=== PATIENT | male | born 1955 | race African-American/Black ===

== ENCOUNTER 2017-11-03 12:27 | Emergency (ER) | payer BC ==
--- OUTSIDE RECORDS SUMMARY | 2017-11-03 12:29 | XMS REPORT | Clinical Summary ---
:1955 Author Organization [facility] Address [address] [place] [address] Care Team Providers Name Role Phone Asked, No Pcp Primary Care Provider Unavailable Allergies Not on File Current Medications Not on file Active Problems Not on file Encounters Date Type Specialty Care Team Description 10/11/2017 Lab Lab Gely Herrmann MD 09/15/2017 Lab Lab Gely Herrmann MD 08/16/2017 Lab Lab Gely Herrmann MD 08/13/2017 Lab Lab Gely Herrmann MD 06/24/2017 Telephone Transplant Eliza Mejia MA PRA Kits ordered 05/31/2017 Lab Lab Gely Herrmann MD 05/03/2017 Lab Lab Gely Herrmann MD 01/11/2017 Lab Lab Gely Herrmann MD 12/07/2016 Lab Lab Gely Herrmann MD 11/23/2016 Lab Lab Gely Herrmann MD after 11/02/2016 Social History Tobacco Use Types Packs/Day Years Used Date Never Assessed Sex Assigned at Date Recorded Not on file Last Filed Vital Signs Not on file Plan of Treatment Health Maintenance Due Date Last Done Comments COLONOSCOPY 2004 ZOSTER VACCINE 2014 INFLUENZA VACCINE 03/09/2017 Results Single antigen beads (08/16/2017 1:19 PM)Only the most recent of3 resultswithin the time period is included. Component Value Ref Range Single antigen beads See link below for PDF Lab Report Specimen Performing Laboratory [facility] DEPARTMENT OF PATHOLOGY AND GENOMIC MEDICINE [address] [place] [address] after 11/02/2016 Insurance Payer Benefit Plan / Group Subscriber ID Type Phone Address [facility] STATE xxxxxxxxxxxxxxx PPO Work: [id number] [phone] [place] [id number] Home: [place] [facility] Transplant Self 1955 Work: [id number] [phone] [place] [phone] Home:
--- NOTE | 2017-11-03 14:00 | ER ---
Nurse's Notes [facility] Name: Allen Doe Age: 62 yrs Sex: Male : 1955 Arrival Date: 11/03/2017 Time: 12:30 Bed 15 Private MD: Diagnosis: Other local infections of skin and subcutaneous tissue Presentation: 11/03 13:04 Presenting complaint: Patient states: Sudden increase in pain and swelling to left foot hb last night, reports several ant bites 1 week ago. Transition of care: patient was not received from another setting of care. Onset of symptoms was November 02, 2017. Care prior to arrival: None. 13:04 Method Of Arrival: Ambulatory hb 13:04 Acuity: AD 4 hb Historical: - Allergies: 13:06 No Known Allergies; hb - Home Meds: 13:06 clonidine HCl 0.1 mg Oral tab 1 tab 3 times per day [Active]; Coreg Oral BID [Active]; hb Norvasc 20mg Oral BID [Active]; - PMHx: 13:06 Bronchitis; Diabetes - IDDM; Dialysis; ESRD; Hypertension; hb - PSHx: 13:06 DIALYSIS GRAFT; eye; Tonsillectomy; hb - Immunization history:: Adult Immunizations up to date. - Social history:: Smoking status: Patient/guardian denies using tobacco. Screenin:39 Abuse screen: Denies threats or abuse. Denies injuries from another. Nutritional ph screening: No deficits noted. Tuberculosis screening: No symptoms or risk factors identified. Fall Risk None identified. Assessment: 13:54 General: Appears in no apparent distress. comfortable, slender, well groomed, Behavior ph is calm, cooperative, appropriate for age, Denies fever. Pain: Complains of pain in left foot. Neuro: Level of Consciousness is awake, alert, obeys commands, Oriented to person, place, time, situation. Cardiovascular: Capillary refill < 3 seconds in bilateral fingers Patient's skin is warm and dry. Pulses are palpable in right dorsalis pedis artery and left dorsalis pedis artery Edema is 1+ to left ankle and right ankle. Respiratory: Airway is patent Respiratory effort is even, unlabored, Respiratory pattern is regular, symmetrical. Derm: Skin is healthy with good turgor, Skin is normal. Musculoskeletal: Amputation of right first toe. Circulation, motion, and sensation intact. Range of motion: intact in all extremities. 14:16 Reassessment: Patient appears in no apparent distress at this time. Patient and/or ph family updated on plan of care and expected duration. Pain level reassessed. Patient is alert, oriented x 3, equal unlabored respirations, skin warm/dry/pink. Pt prescribed antibiotics and discharged home. Vital Signs: 13:07 BP 102 / 60; Pulse 61; Resp 16; Temp 98.1; Pulse Ox 98% on R/A; Weight 61.23 kg; Height hb 5 ft. 9 in. (175.26 cm); Pain 8/10; 14:16 BP 108 / 64; Pulse 58; Resp 18; Temp 97.8; Pulse Ox 99% on R/A; ph 13:07 Body Mass Index 19.94 (61.23 kg, 175.26 cm) hb ED Course: 12:30 Patient arrived in ED. sb2 13:06 Triage completed. hb 13:07 Arm band placed on left wrist. hb 13:38 Maria Luz Noble, RN is Primary Nurse. ph 13:39 Patient has correct armband on for positive identification. Bed in low position. Call ph light in reach. Pulse ox on. NIBP on. 13:42 James Pemberton PA is PHCP. jr8 13:42 Lucio Brunson MD is Attending Physician. jr8 14:17 No provider procedures requiring assistance completed. Patient did not have IV access ph during this emergency room visit. Administered Medications: No medications were administered Outcome: 14:00 Discharge ordered by . jr8 14:17 Discharged to home ambulatory. ph 14:17 Condition: good 14:17 Discharge instructions given to patient, Instructed on discharge instructions, follow up and referral plans. no driving heavy equipment, Demonstrated understanding of instructions, follow-up care, medications, Prescriptions given X 2. 14:17 Patient left the ED. ph Signatures: James Pemberton PA PA jr8 Maria Luz Noble, RN RN Ashely Davis RN RN Darshana Leblanc sb2
--- NOTE | 2017-11-03 14:01 | EDPHYS ---
Physician Documentation [facility] Name: Allen Doe Age: 62 yrs Sex: Male : 1955 Arrival Date: 11/03/2017 Time: 12:30 Bed 15 Private MD: ED Physician Lucio Brunson HPI: 11/03 13:53 This 62 yrs old Black Male presents to ER via Ambulatory with complaints of Wound jr8 Infection, LEFT FOOT. 13:53 The patient presents with pain. The complaints affect the left foot. Onset: The jr8 symptoms/episode began/occurred gradually, 2 day(s) ago. Modifying factors: The symptoms are alleviated by nothing, the symptoms are aggravated by weight bearing, movement. Associated signs and symptoms: The patient has no apparent associated signs or symptoms. Severity of symptoms: At their worst the symptoms were mild, in the emergency department the symptoms are unchanged. The patient has not experienced similar symptoms in the past. The patient has not recently seen a physician. Patient stated that he had ant bites on feet from the other day. Noticed blistering to left foot on one of his toes along with red spot on heel. Does not know what heel wound was from . Historical: - Allergies: 13:06 No Known Allergies; hb - Home Meds: 13:06 clonidine HCl 0.1 mg Oral tab 1 tab 3 times per day [Active]; Coreg Oral BID [Active]; hb Norvasc 20mg Oral BID [Active]; - PMHx: 13:06 Bronchitis; Diabetes - IDDM; Dialysis; ESRD; Hypertension; hb - PSHx: 13:06 DIALYSIS GRAFT; eye; Tonsillectomy; hb - Immunization history:: Adult Immunizations up to date. - Social history:: Smoking status: Patient/guardian denies using tobacco. ROS: 13:53 Eyes: Negative for injury, pain, redness, and discharge, ENT: Negative for injury, jr8 pain, and discharge, Neck: Negative for injury, pain, and swelling, Cardiovascular: Negative for chest pain, palpitations, and edema, Respiratory: Negative for shortness of breath, cough, wheezing, and pleuritic chest pain, Abdomen/GI: Negative for abdominal pain, nausea, vomiting, diarrhea, and constipation, Back: Negative for injury and pain, MS/Extremity: Negative for injury and deformity, Neuro: Negative for headache, weakness, numbness, tingling, and seizure. 13:53 Skin: Positive for erythema, of the left foot, blistering . Exam: 13:53 Cardiovascular: Regular rate and rhythm with a normal S1 and S2. No gallops, murmurs, jr8 or rubs. Normal PMI, no JVD. No pulse deficits. Respiratory: Lungs have equal breath sounds bilaterally, clear to auscultation and percussion. No rales, rhonchi or wheezes noted. No increased work of breathing, no retractions or nasal flaring. MS/ Extremity: Pulses equal, no cyanosis. Neurovascular intact. Full, normal range of motion. Neuro: Awake and alert, GCS 15, oriented to person, place, time, and situation. Cranial nerves II-XII grossly intact. Motor strength 5/5 in all extremities. Sensory grossly intact. Cerebellar exam normal. Normal gait. 13:53 Skin: blister noted to second toe left side. No exudate noted. 3rd toe has hemorrhagic blister noted. Heel with mild erythema. Skin cracking noted to heel which could be source of infection . Vital Signs: 13:07 BP 102 / 60; Pulse 61; Resp 16; Temp 98.1; Pulse Ox 98% on R/A; Weight 61.23 kg; Height hb 5 ft. 9 in. (175.26 cm); Pain 8/10; 14:16 BP 108 / 64; Pulse 58; Resp 18; Temp 97.8; Pulse Ox 99% on R/A; ph 13:07 Body Mass Index 19.94 (61.23 kg, 175.26 cm) hb MDM: 13:41 Patient medically screened. jr8 13:53 Data reviewed: vital signs, nurses notes, and as a result, I will discharge patient. jr8 Data interpreted: Pulse oximetry: on room air is 98 %. Interpretation: normal. Counseling: I had a detailed discussion with the patient and/or guardian regarding: the historical points, exam findings, and any diagnostic results supporting the discharge/admit diagnosis, the need for outpatient follow up, a family practitioner, to return to the emergency department if symptoms worsen or persist or if there are any questions or concerns that arise at home. Administered Medications: No medications were administered Disposition: 15:11 Co-signature as Attending Physician, Lucio Brunson MD I agree with the assessment and antonette plan of care. Disposition: 11/03/17 14:00 Discharged to Home. Impression: Other local infections of skin and subcutaneous tissue. - Condition is Stable. - Prescriptions for Clindamycin HCl 300 mg Oral Capsule - take 1 capsule by ORAL route every 6 hours for 10 days; 40 capsule. Bactrim DS 800- 160 mg Oral Tablet - take 1 tablet by ORAL route every 12 hours for 10 days; 20 tablet. - Medication Reconciliation Form, Thank You Letter, Antibiotic Education, Prescription Opioid Use form. - Follow up: Private Physician; When: 1 week; Reason: Recheck today's complaints, Continuance of care, Re-evaluation by your physician. - Problem is new. - Symptoms have improved. Signatures: Lucio Brunson MD MD cha Roszak, Josh, PA PA jr8 Maria Luz Noble, RN RN Ashely Daniel RN RN
[2017-11-03 14:22] VITALS: BP 108/64; TEMP 97.8; O2SAT 99
== END 2017-11-03 14:17 | disposition home or self-care (01) ==
LOC: ER 12:27
DX: N18.6 End stage renal disease; I12.0 Hypertensive chronic kidney disease with stage 5 chronic kidney disease or end stage renal disease; E11.22 Type 2 diabetes mellitus with diabetic chronic kidney disease; Z99.2 Dependence on renal dialysis; L08.89 Other specified local infections of the skin and subcutaneous tissue
CPT/HCPCS: 99283

== ENCOUNTER 2019-01-31 16:48 | Emergency (ER) | payer BC, OTHER ==
--- OUTSIDE RECORDS SUMMARY | 2019-01-31 16:58 | XMS REPORT | Clinical Summary ---
:1955 Author Organization [facility] Address [address] [place] [address] Care Team Providers Name Role Phone Asked, No Pcp Primary Care Provider Unavailable Allergies Active Allergy Reactions Severity Noted Date Comments Cefepime Shortness Of Breath, Other (See High 12/14/2017 hypotension Comments) Medications Medication Sig Dispensed Refills Start End Date Status Date acetaminophen 325 Take 2 capsules 0 Active mg capsule by mouth as needed. B complex with Take by mouth 0 Active C#20-folic acid 1 daily. mg capsule citalopram (CeleXA) Take 20 mg by 0 Active 20 MG tablet mouth daily. clonIDINE Take 0.1 mg by 0 Active (CATAPRES) 0.1 MG mouth as needed tablet for high blood pressure. gabapentin Take 100 mg by 0 Active (NEURONTIN) 100 mg mouth 3 (three) capsule times a day. hydrALAZINE Take 100 mg by 0 Active (APRESOLINE) 100 MG mouth 2 (two) tablet times a day. lactulose 20 Take 10 g by 0 Active gram/30 mL solution mouth as needed. lisinopril Take 20 mg by 0 Active (PRINIVIL,ZESTRIL) mouth daily. 20 mg tablet NIFEdipine CC Take 60 mg by 0 Active (ADALAT CC) 60 MG mouth daily. 24 hr tablet pantoprazole Take 40 mg by 0 Active (PROTONIX) 40 MG EC mouth daily. tablet ipratropium-albuter Take 3 mL by 0 Active ol (DUO-NEB) nebulization as 0.5-2.5 mg/mL needed for nebulizer wheezing. acetaminophen Take 1 tablet 0 02/19/20 (TYLENOL) 500 MG (500 mg total) by 8 18 tablet mouth every 4 (four) hours as needed for mild pain, headaches or fever for up to 30 days. gabapentin Take 1 capsule 90 capsule 0 02/19/20 (NEURONTIN) 100 mg (100 mg total) by 8 18 capsule mouth 3 (three) times a day for 30 days. lisinopril Take 1 tablet (20 30 tablet 0 02/19/20 (PRINIVIL,ZESTRIL) mg total) by 8 18 20 mg tablet mouth every morning for 30 days. clonIDINE HCl Take 1 tablet 90 tablet 0 02/19/20 (CATAPRES) 0.2 MG (0.2 mg total) by 8 18 tablet mouth 3 (three) times a day for 30 days. hydrALAZINE Infuse 0.5 mL (10 1 mL 0 02/19/20 (APRESOLINE) 20 mg total) into a 8 18 mg/mL injection venous catheter every 6 (six) hours as needed for high blood pressure (SBP > 180) for up to 30 days. hydrALAZINE Take 1 tablet 90 tablet 0 02/19/20 (APRESOLINE) 100 MG (100 mg total) by 8 18 tablet mouth every 8 (eight) hours for 30 days. NIFEdipine XL Take 1 tablet (60 60 tablet 0 02/19/20 (PROCARDIA XL) 60 mg total) by 8 18 MG 24 hr tablet mouth 2 (two) times a day for 30 days. ramelteon (ROZEREM) Take 1 tablet (8 0 02/19/20 8 mg tablet mg total) by 8 18 mouth nightly as needed for sleep for up to 30 days. insulin lispro Inject 0-5 Units 10 mL 12 02/19/20 (HumaLOG) 100 under the skin 3 8 18 unit/mL injection (three) times a day with meals for 30 days. ferrous sulfate 325 Take 1 tablet 60 tablet 0 02/19/20 (65 FE) MG tablet (325 mg total) by 8 18 mouth 2 (two) times a day with meals for 30 days. dextrose 10 % Infuse 40 mL/hr 500 mL 0 02/19/20 infusion into a venous 8 18 catheter continuously as needed (bedside glucose LESS than 70 mg/dL) for up to 30 days. aspirin (ECOTRIN) Take 1 tablet (81 30 tablet 0 02/19/20 81 MG enteric mg total) by 8 18 coated tablet mouth daily for 30 days. citalopram (CeleXA) Take 1 tablet (20 30 tablet 0 02/19/20 20 MG tablet mg total) by 8 18 mouth every morning for 30 days. clotrimazole Apply topically 2 0 02/19/20 (LOTRIMIN) 1 % (two) times a day 8 18 cream for 30 days. B complex-vitamin Take 1 tablet by 30 tablet 0 02/19/20 C-folic acid mouth every 8 18 (FOLBEE PLUS 5 MG) morning for 30 5 mg tablet per days. tablet ergocalciferol Take 1 capsule 4 capsule 0 02/26/20 (VITAMIN D2) 50,000 (50,000 Units 8 18 unit capsule total) by mouth once a week for 30 days. doxazosin (CARDURA) Take 1 tablet (8 30 tablet 0 02/19/20 8 MG tablet mg total) by 8 18 mouth daily for 30 days. darbepoetin Inject 1 mL (100 0 02/19/20 olga-polysorbate mcg total) under 8 18 (ARANESP, IN the skin once a POLYSORBATE,) 100 week for 30 days. mcg/mL injection carvedilol (COREG) Take 1 tablet (25 60 tablet 0 02/19/20 25 MG tablet mg total) by 8 18 mouth 2 (two) times a day for 30 days. calcium carbonate Chew 1 tablet 90 tablet 0 02/19/20 (TUMS) 200 mg (500 mg total) 3 8 18 calcium (500 mg) (three) times chewable tablet daily after meals for 30 days. acetaminophen Take 2 tablets 0 04/08/20 (TYLENOL) 325 MG (650 mg total) by 8 18 tablet mouth every 6 (six) hours as needed for fever for up to 30 days. B complex-vitamin Take 1 tablet by 30 tablet 0 04/09/20 C-folic acid mouth daily for 8 18 (FOLBEE PLUS 5 MG) 30 days. 5 mg tablet per tablet carvedilol (COREG) Take 1 tablet (25 60 tablet 0 04/08/20 25 MG tablet mg total) by 8 18 mouth 2 (two) times a day for 30 days. citalopram (CeleXA) Take 1 tablet (20 30 tablet 0 04/09/20 20 MG tablet mg total) by 8 18 mouth every morning for 30 days. clonIDINE Take 1 tablet 0 04/08/20 (CATAPRES) 0.1 MG (0.1 mg total) by 8 18 tablet mouth every 4 (four) hours as needed for high blood pressure (PRN SBP > 170) for up to 30 days. clonIDINE Take 1 tablet 90 tablet 0 03/23/20 Discontinued (CATAPRES) 0.2 MG (0.2 mg total) by 8 18 tablet mouth 3 (three) times a day for 30 days. gabapentin Take 1 capsule 90 capsule 0 04/08/20 (NEURONTIN) 100 mg (100 mg total) by 8 18 capsule mouth 3 (three) times a day for 30 days. hydrALAZINE Take 1 tablet 90 tablet 0 04/08/20 (APRESOLINE) 100 MG (100 mg total) by 8 18 tablet mouth 3 (three) times a day for 30 days. insulin lispro Inject 0-7 Units 10 mL 12 04/08/20 (HumaLOG) 100 under the skin 3 8 18 unit/mL injection (three) times a day with meals for 30 days. ipratropium-albuter Take 3 mL by 0 04/08/20 ol (DUO-NEB) nebulization 8 18 0.5-2.5 mg/mL every 6 (six) nebulizer hours as needed for wheezing for up to 30 days. lactulose 20 Take 30 mL (20 g 0 04/08/20 gram/30 mL solution total) by mouth 4 8 18 (four) times a day as needed (constipation) for up to 30 days. levothyroxine Take 1 tablet (50 30 tablet 0 04/09/20 (SYNTHROID, mcg total) by 8 18 LEVOXYL) 50 mcg mouth daily for tablet 30 days. lisinopril Take 1 tablet (20 30 tablet 0 04/09/20 (PRINIVIL,ZESTRIL) mg total) by 8 18 20 mg tablet mouth daily for 30 days. NIFEdipine XL Take 1 tablet (60 60 tablet 0 04/08/20 (PROCARDIA XL) 60 mg total) by 8 18 MG 24 hr tablet mouth 2 (two) times a day for 30 days. pantoprazole Take 1 tablet (40 30 tablet 0 04/09/20 (PROTONIX) 40 MG EC mg total) by 8 18 tablet mouth daily for 30 days. povidone-iodine Apply topically 0 04/09/20 (BETADINE) 10 % daily for 30 8 18 external solution days. sulfamethoxazole-tr Take 1 tablet by 0 03/23/20 Discontinued imethoprim (BACTRIM mouth every 12 8 18 SS) 400-80 mg per (twelve) hours tablet for 13 days. temazepam Take 1 capsule 0 04/08/20 (RESTORIL) 15 mg (15 mg total) by 8 18 capsule mouth nightly as needed for sleep for up to 30 days. sulfamethoxazole-tr Take 1 tablet by 20 tablet 0 04/02/20 imethoprim (BACTRIM mouth every 12 8 18 SS) 400-80 mg per (twelve) hours tablet for 10 days. clonIDINE HCl Take 1 tablet 90 tablet 0 04/22/20 (CATAPRES) 0.2 MG (0.2 mg total) by 8 18 tablet mouth 3 (three) times a day for 30 days. carvedilol (COREG) Take 25 mg by 0 04/18/20 Discontinued 25 MG tablet mouth 2 (two) 18 times a day with meals. levothyroxine Take 100 mcg by 0 04/18/20 Discontinued (SYNTHROID, mouth daily. 18 LEVOXYL) 100 mcg tablet carvedilol (COREG) Take 1 tablet (25 60 tablet 0 05/18/20 25 MG tablet mg total) by 8 18 mouth 2 (two) times a day with meals for 30 days. benzonatate Take 1 capsule 10 capsule 0 05/18/20 (TESSALON) 100 MG (100 mg total) by 8 18 capsule mouth 3 (three) times a day as needed for cough for up to 30 days. docusate sodium Take 1 capsule 60 capsule 0 05/18/20 (COLACE) 100 MG (100 mg total) by 8 18 capsule mouth 2 (two) times a day for 30 days. levothyroxine Take 1 tablet 30 tablet 0 05/19/20 (SYNTHROID, (112 mcg total) 8 18 LEVOXYL) 112 mcg by mouth daily tablet for 30 days. 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 LVH (left ventricular hypertrophy) due to hypertensive disease 11/14/2017 Diastolic dysfunction, left ventricle 11/14/2017 Osteomyelitis 11/12/2017 Prediabetes 11/12/2017 Severe protein-calorie malnutrition 11/12/2017 Necrotic toes 11/11/2017 ESRD (end stage renal disease) on dialysis 11/11/2017 Essential hypertension 11/11/2017 Encounters Date Type Specialty Care Team Description 04/13/2018 Anesthesia Event Orthopedic Surgery Dhara Fournier APRN 04/13/2018 Surgery Orthopedic Surgery Vance Charles BILATERAL BELOW KNEE MD Марина AMPUTATION 04/13/2018 - Hospital Encounter Orthopedic Surgery Vance Charles Preop testing (Primary Dx); 04/18/2018 MD Марина Gangrene; Leroy Espinal, ESRD (end stage renal disease) on dialysis 03/21/2018 - Emergency Cardiology Israel Ann SOB (shortness of breath) ( Primary Dx); 03/23/2018 MD Ghulam Acute angina; Leroy Espinal, Cough; ESRD (end stage renal disease); Weakness generalized; Essential hypertension 03/04/2018 Surgery Orthopedic Surgery Ranjit Mireles LEFT FOOT H., DPM TRANSMETATARSAL AMPUTATION 03/04/2018 Anesthesia Event Orthopedic Surgery Arlyn Hernandez MD 02/28/2018 - Hospital Encounter General Internal KrishdeSusanna delgado, Pleural effusion (Primary Dx); 03/09/2018 Medicine ESRD on hemodialysis; Jhony Bass, Acute respiratory distress; Dry gangrene after 01/30/2018 Immunizations Name Dates Previously Given Next Due FLUCELVAX QUAD PF (0.5mL syringe) 04/18/2018 Family History Medical History Relation Name Comments Diabetes Father Heart disease Father Hypertension Father Relation Name Status Comments Father Social History Tobacco Use Types Packs/Day Years Used Date Never Smoker Smokeless Tobacco: Never Used Alcohol Use Drinks/Week oz/Week Comments No Sex Assigned at Date Recorded Not on file Job Start Date Occupation Industry Not on file Not on file Not on file Travel History Travel Start Travel End No recent travel history available. Last Filed Vital Signs Vital Sign Reading Time Taken Blood Pressure 195/84 04/18/2018 11:02 AM CDT Pulse 84 04/18/2018 11:02 AM CDT Temperature 36.6 C (97.9 F) 04/18/2018 11:02 AM CDT Respiratory Rate 18 04/18/2018 11:02 AM CDT Oxygen Saturation 95% 04/18/2018 11:02 AM CDT Inhaled Oxygen Concentration - - Weight 63.5 kg (140 lb) 04/13/2018 10:55 AM CDT Height 175.3 cm (5' 9") 04/13/2018 10:55 AM CDT Body Mass Index 20.67 04/13/2018 10:55 AM CDT Plan of Treatment Health Maintenance Due Date Last Done Comments COLONOSCOPY SCREENING 2004 SHINGLES VACCINES (#1) 2004 INFLUENZA VACCINE 03/09/2019 04/18/2018 Implants Implanted Type Area Rubber Production Machine Operator Device Shelf Model / Identifier Expiration Serial / Date Lot Device Vasclr Clsr Baln Cath 10ml Lkng Syr 5fr Martinez Mynxgrip - [id number] Cardiovascular N/A: ACCESS CLOSURE 06/08/2019 [id number] / Implanted: 11/17/2017 (Quantity not on file) Implants N/A INC / [id number] Catheter Angio Window Cleaner Ii 5fr 0.038in 65cm Hf Contra-L - [id number] Surgical N /A: [facility] PERIPHERAL [id number] / Implanted: 11/16/2017 (Quantity not on file) Implants; N/A INTERVENTION / Expanders; VASCULAR ROBB Extenders; Surgical Wires Catheter Angio Window Cleaner Ii 5fr 0.038in 65cm Hf Contra-L - [id number] Surgical N /A: [facility] PERIPHERAL [id number] / Implanted: 11/17/2017 (Quantity not on file) Implants; N/A INTERVENTION / Expanders; VASCULAR ROBB Extenders; Surgical Wires Catheter Cxi Crossing 2.3fr Vee[employer] INC. [id number] / Implanted: Qty: 2 on 11/17/2017 by Venita Simental MD / Catheter Disaster Recovery Specialist Raymon Sl Otw 4fr 150cm 2.5x80mm Lpr [place] [id number] / Implanted: Qty: 1 on 11/17/2017 by Venita Simental MD SCIENTIFIC/DYLAN / PHERAL VASCULAR (MEDI-TECH) Catheter Disaster Recovery Specialist Otw 4fr 150cm 2o415fh [place] [id number] / Implanted: Qty: 1 on 11/17/2017 by Venita Simental MD SCIENTIFIC/DYLAN / PHERAL VASCULAR (MEDI-TECH) Catheter Sup Seekes 4fr 150cm Xng W/0.014in Gw [place] PERIPHERAL [id number] / Implanted: Qty: 1 on 11/17/2017 by Venita Simental MD VASCULAR INC / Procedures Procedure Name Priority Date/Time Associated Comments Diagnosis HC COMPLETE BLD COUNT Routine 04/17/2018 5:20 Results for this W/AUTO DIFF AM CDT procedure are in the results section. POC GLUCOSE Routine 04/16/2018 6:08 Results for this PM CDT procedure are in the results section. POC GLUCOSE Routine 04/16/2018 1:52 Results for this PM CDT procedure are in the results section. HEMODIALYSIS Routine 04/16/2018 7:27 AM CDT POC GLUCOSE Routine 04/15/2018 9:13 Results for this PM CDT procedure are in the results section. POC GLUCOSE Routine 04/15/2018 6:04 Results for this PM CDT procedure are in the results section. POC GLUCOSE Routine 04/15/2018 12:23 Results for this PM CDT procedure are in the results section. POC GLUCOSE Routine 04/15/2018 7:50 Results for this AM CDT procedure are in the results section. CBC WITH PLATELET AND Routine 04/15/2018 5:10 Results for this DIFFERENTIAL AM CDT procedure are in the results section. ZZESTIMATED GFR Routine 04/15/2018 4:00 Results for this AM CDT procedure are in the results section. BASIC METABOLIC PANEL Routine 04/15/2018 4:00 Results for this AM CDT procedure are in the results section. POC GLUCOSE Routine 04/14/2018 10:43 Results for this PM CDT procedure are in the results section. POC GLUCOSE Routine 04/14/2018 5:22 Results for this PM CDT procedure are in the results section. POC GLUCOSE Routine 04/14/2018 12:42 Results for this PM CDT procedure are in the results section. T3, FREE Routine 04/14/2018 10:30 Results for this AM CDT procedure are in the results section. T4, FREE Routine 04/14/2018 10:14 Results for this AM CDT procedure are in the results section. HEMODIALYSIS Routine 04/14/2018 8:21 AM CDT HEPATITIS B SURFACE STAT 04/14/2018 7:39 Results for this ANTIGEN AM CDT procedure are in the results section. T4, FREE Routine 04/14/2018 4:00 Results for this AM CDT procedure are in the results section. ZZESTIMATED GFR Routine 04/14/2018 4:00 Results for this AM CDT procedure are in the results section. BASIC METABOLIC PANEL Routine 04/14/2018 4:00 Results for this AM CDT procedure are in the results section. CBC WITH PLATELET AND Routine 04/14/2018 4:00 Results for this DIFFERENTIAL AM CDT procedure are in the results section. POC GLUCOSE Routine 04/13/2018 9:14 Results for this PM CDT procedure are in the results section. THYROID STIMULATING Routine 04/13/2018 6:07 Results for this HORMONE PM CDT procedure are in the results section. TRANSFUSE RED BLOOD STAT 04/13/2018 5:57 CELLS PM CDT TRANSFUSE RED BLOOD Routine 04/13/2018 5:53 CELLS PM CDT POC GLUCOSE Routine 04/13/2018 5:38 Results for this PM CDT procedure are in the results section. POC GLUCOSE Routine 04/13/2018 2:52 Results for this PM CDT procedure are in the results section. SURGICAL PATHOLOGY Routine 04/13/2018 2:41 Results for this REQUEST PM CDT procedure are in the results section. GRAM STAIN Timed 04/13/2018 1:37 Results for this PM CDT procedure are in the results section. AFB STAIN Timed 04/13/2018 1:37 Results for this PM CDT procedure are in the results section. ANAEROBIC CULTURE Timed 04/13/2018 1:37 Results for this PM CDT procedure are in the results section. FUNGUS SMEAR Timed 04/13/2018 1:37 Results for this PM CDT procedure are in the results section. AFB CULTURE Timed 04/13/2018 1:37 Gangrene (HCC) Results for this PM CDT procedure are in the results section. AEROBIC CULTURE Timed 04/13/2018 1:37 Gangrene Results for this PM CDT procedure are in the results section. FUNGUS CULTURE Timed 04/13/2018 1:37 Gangrene (HCC) Results for this PM CDT procedure are in the results section. GRAM STAIN Timed 04/13/2018 1:29 Results for this PM CDT procedure are in the results section. AFB STAIN Timed 04/13/2018 1:29 Results for this PM CDT procedure are in the results section. FUNGUS SMEAR Timed 04/13/2018 1:29 Results for this PM CDT procedure are in the results section. AFB CULTURE Timed 04/13/2018 1:29 Gangrene (HCC) Results for this PM CDT procedure are in the results section. AEROBIC CULTURE Timed 04/13/2018 1:29 Gangrene Results for this PM CDT procedure are in the results section. FUNGUS CULTURE Timed 04/13/2018 1:29 Gangrene (HCC) Results for this PM CDT procedure are in the results section. ANAEROBIC CULTURE Timed 04/13/2018 1:29 Gangrene Results for this PM CDT procedure are in the results section. IONIZED CALCIUM, Routine 04/13/2018 1:00 Results for this ARTERIAL PM CDT procedure are in the results section. GLUCOSE LEVEL, Routine 04/13/2018 1:00 Results for this SYRINGE PM CDT procedure are in the results section. POTASSIUM, SYRINGE Routine 04/13/2018 1:00 Results for this PM CDT procedure are in the results section. HEMOGLOBIN, SYRINGE Routine 04/13/2018 1:00 Results for this PM CDT procedure are in the results section. SODIUM LEVEL, SYRINGE Routine 04/13/2018 1:00 Results for this PM CDT procedure are in the results section. ARTERIAL BLOOD GAS, Routine 04/13/2018 1:00 Results for this CORRECTED PM CDT procedure are in the results section. ARTERIAL LINE Routine 04/13/2018 12:39 PM CDT Procedure Note - Simon Starr CRNA - 04/13/2018 12:39 PM CDT Arterial line Performed by: SIMON STARR Authorized by: EDY MCCONNELL Patient Location: OR Start Time: 04/13/2018 12:23 PM End Time: 04/13/2018 12:27 PM Staff: Anesthesiologist: EDY MCCONNELL Performed by: Anesthesiologist Pre-procedure: patient identified, IV checked, site and side verified, risks and benefits discussed, procedure verified, surgical consent complete, patient position confirmed, monitors and equipment checked and pre-op evaluation complete MSBT: antiseptic used, all elements of maximal sterile barrier technique followed, hand hygiene performed, cap/gown used by other personnel and solutions labeled TIme Out Performed: 04/13/2018 12:23 PM Indications: Indications: hemodynamic monitoring Anesthesia: Anesthesia: General Procedure Details: Arterial Line placement: Placed post induction Line placement site: Radial Line placement side: Left Arterial line gauge: 20 G Number of attempts: 1 Ultrasound guidance used: Yes Post-procedure: Post-procedure: Sterile dressing applied Post procedure circulation, sensation, movement: Normal and unchanged Patient tolerance: Patient tolerated the procedure well with no immediate complications SC AN ELECTIVE ENDOTRACHEAL AIRWAY Routine 04/13/2018 12:34 PM CDT Procedure Note - Simon Starr CRNA - 04/13/2018 12:34 PM CDT Airway Date/Time: 04/13/2018 12:16 PM Performed by: SIMON STARR Authorized by: EDY MCCONNELL Location: OR Urgency: Elective Difficult Airway: No Anesthesiologist: EDY MCCONNELL Performed by: anesthesiologist Preoxygenated with 100% O2: Yes Mask Ventilation: Easy mask (100mm OA) Final Airway Type: Endotracheal airway Final Endotracheal Airway: ETT Cuffed: Yes Technique Used: Direct laryngoscopy Devices/Methods Used in Placement: Intubating stylet Insertion Site: Oral Blade Type: Girard Laryngoscope Blade/Videolaryngoscope Blade Size: 2 ETT Size (mm): 8.0 Cuff at minimum occlusion pressure: Yes Measured from: Teeth ETT to Teeth (cm): 22 Placement Verified by: CO2 detection, direct visualization and equal breath sounds Laryngoscopic view: Grade IIa - partial view of glottis Rapid Sequence Induction (RSI): No Modified RSI: No Number of Attempts at Approach: 1 AMPUTATION, BELOW KNEE 04/13/2018 10:50 AM CDT Gangrene Case Notes EST 2HRS, LARGE C-ARM, AQUAMANTYS, SAW Special Needs EST 2HRS, LARGE C-ARM, AQUAMANTYS, SAW POC GLUCOSE Routine 04/13/2018 10:41 AM Results for this CDT procedure are in the results section. TYPE AND SCREEN Routine 04/13/2018 10:30 AM Results for this CDT procedure are in the results section. CBC HEMOGRAM Routine 04/13/2018 10:30 AM Results for this CDT procedure are in the results section. ZZESTIMATED GFR Routine 04/13/2018 10:30 AM Results for this CDT procedure are in the results section. COMPREHENSIVE METABOLIC Routine 04/13/2018 10:30 AM Results for this PANEL CDT procedure are in the results section. POC GLUCOSE Routine 03/23/2018 11:38 AM Results for this CDT procedure are in the results section. POC GLUCOSE Routine 03/23/2018 7:57 AM Results for this CDT procedure are in the results section. RESPIRATORY PATHOGEN Routine 03/22/2018 9:35 PM Results for this PANEL CDT procedure are in the results section. POC GLUCOSE Routine 03/22/2018 9:14 PM Results for this CDT procedure are in the results section. HEMODIALYSIS Routine 03/22/2018 5:13 PM Results for this CDT procedure are in the results section. POC GLUCOSE Routine 03/22/2018 4:21 PM Results for this CDT procedure are in the results section. ZZESTIMATED GFR Routine 03/22/2018 2:45 PM Results for this CDT procedure are in the results section. HC COMPLETE BLD COUNT Routine 03/22/2018 2:45 PM Results for this W/AUTO DIFF CDT procedure are in the results section. BASIC METABOLIC PANEL Routine 03/22/2018 2:45 PM Results for this CDT procedure are in the results section. POC GLUCOSE Routine 03/22/2018 11:53 AM Results for this CDT procedure are in the results section. POC GLUCOSE Routine 03/22/2018 7:41 AM Results for this CDT procedure are in the results section. ECG 12-LEAD STAT 03/22/2018 5:42 AM Results for this CDT procedure are in the results section. TROPONIN Timed 03/22/2018 12:15 AM Results for this CDT procedure are in the results section. CT ABDOMEN PELVIS WO STAT 03/21/2018 11:01 PM Results for this CONTRAST CDT procedure are in the results section. ECG 12-LEAD Routine 03/21/2018 10:03 PM Results for this CDT procedure are in the results section. ZZESTIMATED GFR STAT 03/21/2018 8:52 PM Results for this CDT procedure are in the results section. B NATRIURETIC PEPTIDE STAT 03/21/2018 8:52 PM Results for this CDT procedure are in the results section. TROPONIN STAT 03/21/2018 8:52 PM Results for this CDT procedure are in the results section. LIPASE LEVEL STAT 03/21/2018 8:52 PM Results for this CDT procedure are in the results section. COMPREHENSIVE METABOLIC STAT 03/21/2018 8:52 PM Results for this PANEL CDT procedure are in the results section. PARTIAL THROMBOPLASTIN STAT 03/21/2018 8:52 PM Results for this TIME (PTT) CDT procedure are in the results section. PROTHROMBIN TIME WITH STAT 03/21/2018 8:52 PM Results for this INR CDT procedure are in the results section. HC COMPLETE BLD COUNT STAT 03/21/2018 8:52 PM Results for this W/AUTO DIFF CDT procedure are in the results section. XR CHEST 2 VW STAT 03/21/2018 8:46 PM Results for this CDT procedure are in the results section. POC GLUCOSE Routine 03/21/2018 8:11 PM Results for this CDT procedure are in the results section. POC GLUCOSE Routine 03/09/2018 5:25 PM Results for this CDT procedure are in the results section. POC GLUCOSE Routine 03/09/2018 11:41 AM Results for this CDT procedure are in the results section. POC GLUCOSE Routine 03/09/2018 7:32 AM Results for this CDT procedure are in the results section. POC GLUCOSE Routine 03/08/2018 8:58 PM Results for this CDT procedure are in the results section. POC GLUCOSE Routine 03/08/2018 5:21 PM Results for this CDT procedure are in the results section. POC GLUCOSE Routine 03/08/2018 12:30 PM Results for this CDT procedure are in the results section. TRANSFUSE RED BLOOD STAT 03/08/2018 10:46 AM CELLS CDT PREPARE RBC STAT 03/08/2018 9:00 AM Results for this CDT procedure are in the results section. TYPE AND SCREEN STAT 03/08/2018 9:00 AM Results for this CDT procedure are in the results section. SMEAR REVIEW Routine 03/08/2018 7:45 AM Results for this CDT procedure are in the results section. ZZESTIMATED GFR Routine 03/08/2018 7:45 AM Results for this CDT procedure are in the results section. BASIC METABOLIC PANEL Routine 03/08/2018 7:45 AM Results for this CDT procedure are in the results section. HC COMPLETE BLD COUNT Routine 03/08/2018 7:45 AM Results for this W/AUTO DIFF CDT procedure are in the results section. POC GLUCOSE Routine 03/08/2018 7:41 AM Results for this CDT procedure are in the results section. HEMODIALYSIS Routine 03/08/2018 6:35 AM CDT POC GLUCOSE Routine 03/07/2018 8:38 PM Results for this CDT procedure are in the results section. POC GLUCOSE Routine 03/07/2018 5:39 PM Results for this CDT procedure are in the results section. POC GLUCOSE Routine 03/07/2018 12:09 PM Results for this CDT procedure are in the results section. POC GLUCOSE Routine 03/07/2018 7:56 AM Results for this CDT procedure are in the results section. POC GLUCOSE Routine 03/06/2018 5:27 PM Results for this CDT procedure are in the results section. POC GLUCOSE Routine 03/06/2018 11:04 AM Results for this CDT procedure are in the results section. POC GLUCOSE Routine 03/06/2018 7:34 AM Results for this CDT procedure are in the results section. POC GLUCOSE Routine 03/05/2018 8:54 PM Results for this CDT procedure are in the results section. POC GLUCOSE Routine 03/05/2018 5:49 PM Results for this CDT procedure are in the results section. POC GLUCOSE Routine 03/05/2018 12:37 PM Results for this CDT procedure are in the results section. POC GLUCOSE Routine 03/05/2018 8:42 AM Results for this CDT procedure are in the results section. POC GLUCOSE Routine 03/04/2018 9:15 PM Results for this CDT procedure are in the results section. POC GLUCOSE Routine 03/04/2018 3:57 PM Results for this CDT procedure are in the results section. AMPUTATION, FOOT, 03/04/2018 3:05 PM LEFT FOOT TRANSMETATARSAL CDT INFECTION Case Notes TF ~ 1130 Special Needs TF ~ 1130, EST 45 MINUTES XR FOOT 3+ VW LEFT Routine 03/04/2018 2:59 PM CDT HEMODIALYSIS Routine 03/04/2018 2:49 PM CDT POC GLUCOSE Routine 03/04/2018 1:39 PM CDT SURGICAL PATHOLOGY REQUEST Routine 03/04/2018 1:38 PM CDT AFB CULTURE Timed 03/04/2018 1:19 PM CDT FUNGUS CULTURE Timed 03/04/2018 1:19 PM CDT ANAEROBIC CULTURE Timed 03/04/2018 1:19 PM CDT AEROBIC CULTURE Timed 03/04/2018 1:19 PM CDT GRAM STAIN Timed 03/04/2018 1:08 PM CDT FUNGUS SMEAR Timed 03/04/2018 1:08 PM CDT AFB STAIN Timed 03/04/2018 1:08 PM CDT AFB CULTURE Timed 03/04/2018 1:08 PM CDT AEROBIC CULTURE Timed 03/04/2018 1:08 PM CDT FUNGUS CULTURE Timed 03/04/2018 1:08 PM CDT ANAEROBIC CULTURE Timed 03/04/2018 1:08 PM CDT POC GLUCOSE Routine 03/04/2018 11:15 AM CDT POC GLUCOSE Routine 03/04/2018 7:31 AM CDT TYPE AND SCREEN Routine 03/04/2018 4:20 AM CDT HC COMPLETE BLD COUNT W/AUTO Routine 03/04/2018 4:20 AM CDT Results for this DIFF procedure are in the results section. ZZESTIMATED GFR Routine 03/04/2018 4:00 AM CDT BASIC METABOLIC PANEL Routine 03/04/2018 4:00 AM CDT POC GLUCOSE Routine 03/03/2018 11:58 PM CDT MRI FOOT WO CONTRAST LEFT Routine 03/03/2018 9:39 PM CDT POC GLUCOSE Routine 03/03/2018 5:10 PM CDT POC GLUCOSE Routine 03/03/2018 1:13 PM CDT POC GLUCOSE Routine 03/03/2018 8:31 AM CDT HEMODIALYSIS Routine 03/03/2018 6:[address] LOWER EXTREMITY WO Routine 03/02/2018 10:00 PM CDT Results for this CONTRAST LEFT procedure are in the results section. POC GLUCOSE Routine 03/02/2018 9:18 PM CDT POC GLUCOSE Routine 03/02/2018 5:54 PM CDT XR CHEST 1 VW Routine 03/02/2018 4:27 PM CDT XR FOOT 3+ VW LEFT Routine 03/02/2018 4:27 PM CDT XR FOOT 3+ VW RIGHT Routine 03/02/2018 4:26 PM CDT US THORACENTESIS WITH Routine 03/02/2018 3:59 PM CDT Results for this IMAGING procedure are in the results section. GRAM STAIN Routine 03/02/2018 3:32 PM CDT ANAEROBIC CULTURE Routine 03/02/2018 3:32 PM CDT AEROBIC CULTURE Routine 03/02/2018 3:32 PM CDT PROTEIN, MISC FLUID Routine 03/02/2018 3:31 PM CDT CELL COUNT AND DIFFERENTIAL, Routine 03/02/2018 3:31 PM CDT Results for this BODY FLUID procedure are in the results section. LDH, MISC FLUID Routine 03/02/2018 3:31 PM CDT PROTHROMBIN TIME WITH INR STAT 03/02/2018 12:31 PM CDT PARTIAL THROMBOPLASTIN TIME STAT 03/02/2018 12:31 PM CDT Results for this (PTT) procedure are in the results section. POC GLUCOSE Routine 03/02/2018 11:47 AM CDT US DUPLEX ARTERIAL LOWER Routine 03/02/2018 11:22 AM CDT Results for this EXTREMITY BILATERAL procedure are in the results section. CYTOLOGY (NON-GYNECOLOGICAL) Routine 03/02/2018 7:54 AM CDT Results for this REQUEST procedure are in the results section. POC GLUCOSE Routine 03/02/2018 7:16 AM CDT VITAMIN B12 LEVEL Routine 03/02/2018 6:00 AM CDT HC COMPLETE BLD COUNT W/AUTO Routine 03/02/2018 6:00 AM CDT Results for this DIFF procedure are in the results section. ZZESTIMATED GFR Routine 03/02/2018 4:00 AM CDT FERRITIN LEVEL Routine 03/02/2018 4:00 AM CDT THYROID STIMULATING HORMONE Routine 03/02/2018 4:00 AM CDT LDH Routine 03/02/2018 4:00 AM CDT PHOSPHORUS LEVEL Routine 03/02/2018 4:00 AM CDT MAGNESIUM LEVEL Routine 03/02/2018 4:00 AM CDT LIPID PANEL Routine 03/02/2018 4:00 AM CDT CREATINE KINASE, TOTAL (CPK) Routine 03/02/2018 4:00 AM CDT HEPATIC FUNCTION PANEL Routine 03/02/2018 4:00 AM CDT BASIC METABOLIC PANEL Routine 03/02/2018 4:00 AM CDT POC GLUCOSE Routine 03/01/2018 9:09 PM CDT POC GLUCOSE Routine 03/01/2018 5:32 PM CDT XR CHEST 2 VW Routine 03/01/2018 5:27 PM CDT POC GLUCOSE Routine 03/01/2018 1:11 PM CDT ZZESTIMATED GFR Routine 03/01/2018 8:00 AM CDT HC COMPLETE BLD COUNT W/AUTO Routine 03/01/2018 8:00 AM CDT Results for this DIFF procedure are in the results section. BASIC METABOLIC PANEL Routine 03/01/2018 8:00 AM CDT HEPATITIS B SURFACE ANTIGEN Routine 03/01/2018 8:00 AM CDT HEMODIALYSIS Routine 03/01/2018 6:52 AM CDT POC GLUCOSE Routine 02/28/2018 10:[address] CHEST WO CONTRAST STAT 02/28/2018 7:38 PM CDT XR CHEST 1 VW PORTABLE STAT 02/28/2018 5:44 PM CDT ZZESTIMATED GFR STAT 02/28/2018 3:38 PM CDT B NATRIURETIC PEPTIDE STAT 02/28/2018 3:38 PM CDT TROPONIN STAT 02/28/2018 3:38 PM CDT COMPREHENSIVE METABOLIC STAT 02/28/2018 3:38 PM CDT Results for this PANEL procedure are in the results section. HC COMPLETE BLD COUNT W/AUTO STAT 02/28/2018 3:38 PM CDT Results for this DIFF procedure are in the results section. ECG 12-LEAD STAT 02/28/2018 3:10 PM CDT after 01/30/2018 Results CBC with platelet and differential (04/17/2018 5:20 AM CDT)Only the most recent of10 resultswithin the time period is included. WBC 6.53 4.50 - 11.00 [facility] DEPARTMENT OF k/uL PATHOLOGY AND GENOMIC MEDICINE RBC 3.36 (L) 4.40 - 6.00 [facility] DEPARTMENT OF m/uL PATHOLOGY AND GENOMIC MEDICINE HGB 8.4 (L) 14.0 - 18.0 [facility] DEPARTMENT OF g/dL PATHOLOGY AND GENOMIC MEDICINE HCT 26.6 (L) 41.0 - 51.0 % [facility] DEPARTMENT OF PATHOLOGY AND GENOMIC MEDICINE MCV 79.2 (L) 82.0 - 100.0 [facility] DEPARTMENT OF [place] PATHOLOGY AND GENOMIC MEDICINE MCH 25.0 (L) 27.0 - 34.0 [facility] DEPARTMENT OF PATHOLOGY AND GENOMIC MEDICINE MCHC 31.6 31.0 - 37.0 [facility] DEPARTMENT OF g/dL PATHOLOGY AND GENOMIC MEDICINE RDW - SD 56.1 (H) 37.0 - 55.0 [facility] DEPARTMENT OF [place] PATHOLOGY AND GENOMIC MEDICINE MPV 10.1 8.8 - 13.2 fL [facility] DEPARTMENT OF PATHOLOGY AND GENOMIC MEDICINE Platelet count 288 150 - 400 [facility] DEPARTMENT OF k/uL PATHOLOGY AND GENOMIC MEDICINE Nucleated RBC 0.00 /100 WBC [facility] DEPARTMENT OF PATHOLOGY AND GENOMIC MEDICINE Neutrophils 70.4 (H) 39.0 - 69.0 % [facility] DEPARTMENT OF PATHOLOGY AND GENOMIC MEDICINE Lymphocytes 12.7 (L) 25.0 - 45.0 % [facility] DEPARTMENT OF PATHOLOGY AND GENOMIC MEDICINE Monocytes 12.1 (H) 0.0 - 10.0 % [facility] DEPARTMENT OF PATHOLOGY AND GENOMIC MEDICINE Eosinophils 4.0 0.0 - 5.0 % [facility] DEPARTMENT OF PATHOLOGY AND GENOMIC MEDICINE Basophils 0.6 0.0 - 1.0 % [facility] DEPARTMENT OF PATHOLOGY AND GENOMIC MEDICINE Immature granulocytes 0.2Comment: 0.0 - 1.0 % [facility] DEPARTMENT OF "Immature PATHOLOGY AND granulocytes" GENOMIC MEDICINE (promyelocytes , myelocytes, metamyelocytes ) Specimen Blood Performing Organization Address City/State/Zipcode Phone Number [facility] DEPARTMENT OF PATHOLOGY AND [address] [place] [address] GENOMIC MEDICINE POC glucose (04/16/2018 6:08 PM CDT)Only the most recent of55 resultswithin the time period is included. [facility] POC glucose 137 (H) 65 - 99 mg/dL [facility] DEPARTMENT OF Comment: PATHOLOGY AND [facility] Notified RN GENOMIC MEDICINE Meter ID: [id number] Water/Wastewater Project Manager: Kayegail Barr Specimen Performing Organization Address City/[facility]/Zipcode Phone Number [facility] DEPARTMENT PATHOLOGY AND [address] [place] [id number] GENOMIC MEDICINE Estimated GFR (04/15/2018 4:00 AM CDT)Only the most recent of10 resultswithin the time period is included. [facility] GFR Non Af Amer 15 (A) mL/min/1.73 [facility] DEPARTMENT OF m2 PATHOLOGY AND GENOMIC MEDICINE GFR Af Amer 18 (A) mL/min/1.73 [facility] DEPARTMENT OF Comment: m2 PATHOLOGY AND Chronic kidney disease: <60 mL/min/1.73m2 GENOMIC MEDICINE Kidney failure: <15 mL/min/1.73m2 The estimated GFR is calculated from the IDMS-traceable Modification of Diet in Renal Disease Equation. The accuracy of the calculation is poor when the creatinine is normal. Calculated values >90 mL/min/1.73m2 are not reported. This equation has not been validated in children (<18 years), women, the elderly (>70 years), or ethnic groups other than Caucasians and Americans. Specimen Plasma specimen Performing Organization Address City/[facility]/Zipcode Phone Number [facility] DEPARTMENT OF PATHOLOGY AND [address] [place] [id number] MEDICINE Basic metabolic panel (04/15/2018 4:00 AM CDT)Only the most recent of7 resultswithin the time period is included. Pathologist [facility] Sodium 138 135 - 148 mEq/L [facility] DEPARTMENT OF PATHOLOGY AND GENOMIC MEDICINE Potassium 4.3 3.5 - 5.0 mEq/L [facility] DEPARTMENT OF PATHOLOGY AND GENOMIC MEDICINE Chloride 96 (L) 98 - 112 mEq/L [facility] DEPARTMENT OF PATHOLOGY AND GENOMIC MEDICINE CO2 30 24 - 31 mEq/L [facility] DEPARTMENT OF PATHOLOGY AND GENOMIC MEDICINE Anion gap 12@ANIO 7 - 15 mEq/L [facility] DEPARTMENT OF PATHOLOGY AND GENOMIC MEDICINE BUN 20 8 - 23 mg/dL [facility] DEPARTMENT OF PATHOLOGY AND GENOMIC MEDICINE Creatinine 4.1 (H) 0.7 - 1.2 mg/dL [facility] DEPARTMENT OF PATHOLOGY AND GENOMIC MEDICINE Glucose 117 (H) 65 - 99 mg/dL [facility] DEPARTMENT OF PATHOLOGY AND GENOMIC MEDICINE Calcium 7.8 (L) 8.8 - 10.2 mg/dL [facility] DEPARTMENT OF PATHOLOGY AND GENOMIC MEDICINE Specimen Plasma specimen Performing Organization Address City/[facility] Phone Number [facility] DEPARTMENT OF PATHOLOGY AND [address] [place] [phone] GENOMIC MEDICINE T3, free (04/14/2018 10:30 AM CDT) T3, free 1.2 (L) 2.4 - 4.2 pg/mL [facility] Comment: REFERENCE INTERVAL: Triiodothyronine, Free (Free T3) Access complete set of age- and/or gender-specific reference intervals for this test in the [facility] Test Directory ([employer]). Performed by [facility], [address] [place] [id number] [email or web address], Emil Ingram MD - Lab. Director Specimen Serum Performing Organization Address [facility] Number [facility] [address] [address] T4, free (04/14/2018 10:14 AM CDT)Only the most recent of2 resultswithin the time period is included. T4, free 1.3 0.9 - 1.7 ng/dL [facility] DEPARTMENT OF PATHOLOGY AND GENOMIC MEDICINE Specimen Plasma specimen Performing Organization Address [facility] Phone Number [facility] DEPARTMENT OF PATHOLOGY AND [address] [place] [address] Hepatitis B surface antigen (04/14/2018 7:39 AM CDT)Only the most recent of2 resultswithin the time period is included. Hepatitis B surface Non-reactive Non-reactive [facility] DEPARTMENT OF PATHOLOGY AND GENOMIC MEDICINE Specimen Blood Performing Organization Address [facility] Phone Number [facility] DEPARTMENT OF PATHOLOGY AND [address] [place] [address] Thyroid stimulating hormone (04/13/2018 6:07 PM CDT)Only the most recent of2 resultswithin the time period is included. TSH 15.01 (H) 0.27 - 4.20 uIU/mL [facility] DEPARTMENT OF PATHOLOGY AND GENOMIC MEDICINE Specimen Plasma specimen Performing Organization Address City/[facility] Phone Number [facility] DEPARTMENT OF PATHOLOGY AND [address] [place] [phone] GENOMIC MEDICINE Transfuse RBC (04/13/2018 5:57 PM CDT)Only the most recent of4 resultswithin the time period is included.Surgical pathology request (04/13/2018 2:41 PM CDT) Only the most recent of2 resultswithin the time period is included. [facility] DEPARTMENT OF PATHOLOGY AND GENOMIC MEDICINE Surgical pathology See link below [facility] DEPARTMENT OF report for PDF Lab PATHOLOGY AND Report GENOMIC MEDICINE Result status This is Final [facility] DEPARTMENT OF Report for PATHOLOGY AND [id number] GENOMIC MEDICINE Specimen Performing Organization Address [facility] Phone Number [facility] DEPARTMENT OF PATHOLOGY AND [address] [place] [address] MEDICINE Fungus smear (04/13/2018 1:37 PM CDT)Only the most recent of3 resultswithin the time period is included. Fungus smear No fungi observed. [facility] DEPARTMENT OF Comment: PATHOLOGY AND Specimen Information GENOMIC MEDICINE Specimen Source: Fluid Specimen Site: Leg, left Specimen Leg, left Performing Organization Address [facility] Phone Number [facility] DEPARTMENT OF PATHOLOGY AND [address] [place] [address] MEDICINE AFB culture (04/13/2018 1:37 PM CDT)Only the most recent of4 resultswithin the time period is included. AFB culture No growth after 6 weeks of incubation. [facility] DEPARTMENT OF isolate Comment: PATHOLOGY AND Specimen Information GENOMIC MEDICINE Specimen Source: Fluid Specimen Site: Leg, left Specimen Fluid - Leg, left Performing Organization Address City/[facility] Phone Number [facility] DEPARTMENT OF PATHOLOGY AND [address] [place] [phone] GENOMIC MEDICINE Aerobic culture (04/13/2018 1:37 PM CDT)Only the most recent of5 resultswithin the time period is included. Aerobic culture No growth after 3 days. [facility] DEPARTMENT OF isolate Comment: PATHOLOGY AND Specimen Information GENOMIC MEDICINE Specimen Source: Fluid Specimen Site: Leg, left Specimen Fluid - Leg, left Performing Organization Address City/[facility] Phone Number [facility] DEPARTMENT OF PATHOLOGY AND [address] [place] [address] GENOMIC MEDICINE Gram stain (04/13/2018 1:37 PM CDT)Only the most recent of4 resultswithin the time period is included. Gram stain isolate No WBC's or organisms seen. [facility] DEPARTMENT OF Comment: PATHOLOGY AND Specimen Information GENOMIC MEDICINE Specimen Source: Fluid Specimen Site: Leg, left Specimen Leg, left Performing Organization Address [facility] Phone Number [facility] DEPARTMENT OF PATHOLOGY AND [address] [place] [address] GENOMIC MEDICINE AFB stain (04/13/2018 1:37 PM CDT)Only the most recent of3 resultswithin the time period is included. AFB stain No acid fast bacilli (AFB) seen. [facility] DEPARTMENT OF Comment: PATHOLOGY AND GENOMIC Specimen Information MEDICINE Specimen Source: Fluid Specimen Site: Leg, left Specimen Leg, left Performing Organization [facility] Phone Number [facility] DEPARTMENT OF PATHOLOGY AND [address] [place] [address] MEDICINE Fungus culture (04/13/2018 1:37 PM CDT)Only the most recent of4 resultswithin the time period is included. Fungus culture No growth after 4 weeks of incubation. [facility] DEPARTMENT OF isolate Comment: PATHOLOGY AND Specimen Information GENOMIC MEDICINE Specimen Source: Fluid Specimen Site: Leg, left Specimen Fluid - Leg, left Performing Organization Address [facility] Phone Number [facility] DEPARTMENT OF PATHOLOGY AND [address] [place] [address] GENOMIC MEDICINE Anaerobic culture (04/13/2018 1:37 PM CDT)Only the most recent of5 resultswithin the time period is included. Anaerobic culture No anaerobic organisms isolated. [facility] DEPARTMENT OF isolate Comment: PATHOLOGY AND Specimen Information GENOMIC MEDICINE Specimen Source: Fluid Specimen Site: Leg, left Specimen Leg, left Performing Organization Address [facility] Phone Number [facility] DEPARTMENT OF PATHOLOGY AND [address] [place] [address] GENOMIC MEDICINE Sodium level, syringe (04/13/2018 1:00 PM CDT) Sodium, syringe 131 (L) 135 - 148 mEq/L [facility] DEPARTMENT OF PATHOLOGY AND GENOMIC MEDICINE Specimen Blood Performing Organization Address [facility]/Zipcode Phone Number [facility] DEPARTMENT OF PATHOLOGY AND [address] [place] [address] GENOMIC MEDICINE Potassium, syringe (04/13/2018 1:00 PM CDT) Potassium, syringe 3.0 (LL)Comment: 3.5 - 5.0 [facility] DEPARTMENT OF Abg results mEq/L PATHOLOGY AND called read back [facility] MEDICINE by Shalonda CLARK RN 13:16 nt Specimen Blood Performing Organization Address City/[facility] Phone Number [facility] DEPARTMENT OF PATHOLOGY AND [address] [place] [address] Ionized calcium, arterial (04/13/2018 1:00 PM CDT) Ionized calcium, 0.92 (L) 1.11 - 1.32 [facility] DEPARTMENT OF arterial mmol/L PATHOLOGY AND GENOMIC MEDICINE Specimen Blood Performing Organization Address [facility] Phone Number [facility] DEPARTMENT OF PATHOLOGY AND [address] [place] [address] MEDICINE Hemoglobin, syringe (04/13/2018 1:00 PM CDT) Hemoglobin, syringe 9.8 (L) 14.0 - 18.0 g/dL [facility] DEPARTMENT OF PATHOLOGY AND GENOMIC MEDICINE Specimen Blood Performing Organization Address [facility] Phone Number [facility] DEPARTMENT OF PATHOLOGY AND [address] [place] [address] Glucose level, syringe (04/13/2018 1:00 PM CDT) Glucose, syringe 83 65 - 99 mg/dL [facility] DEPARTMENT OF PATHOLOGY AND GENOMIC MEDICINE Specimen Blood Performing Organization Address [facility] Phone Number [facility] DEPARTMENT OF PATHOLOGY AND [address] [place] [address] Arterial blood gas, corrected (04/13/2018 1:00 PM CDT) pH, arterial 7.54 (H) 7.35 - 7.45 [facility] DEPARTMENT OF PATHOLOGY AND GENOMIC MEDICINE pCO2, arterial 38 35 - 45 mmHg [facility] DEPARTMENT OF PATHOLOGY AND GENOMIC MEDICINE pO2, arterial 139 (H) 80 - 90 mmHg [facility] DEPARTMENT OF PATHOLOGY AND GENOMIC MEDICINE Temperature, Celsius 37.0 Degrees C [facility] DEPARTMENT OF PATHOLOGY AND GENOMIC MEDICINE O2 saturation, 100 95 - 100 % [facility] DEPARTMENT OF arterial PATHOLOGY AND GENOMIC MEDICINE pH, arterial 7.54 [facility] DEPARTMENT OF corrected PATHOLOGY AND GENOMIC MEDICINE pCO2, arterial 38 mmHg [facility] DEPARTMENT OF corrected PATHOLOGY AND GENOMIC MEDICINE pO2, arterial 139 mmHg [facility] DEPARTMENT OF corrected PATHOLOGY AND GENOMIC MEDICINE Base excess, 9 (H) -2 - 2 mEq/L [facility] DEPARTMENT OF arterial PATHOLOGY AND GENOMIC MEDICINE Specimen Blood Performing Organization Address City/[facility] Phone Number [facility] DEPARTMENT OF PATHOLOGY AND [address] [place], [place] [phone] [facility] MEDICINE CBC hemogram (04/13/2018 10:30 AM CDT) WBC 7.05 4.50 - 11.00 k/uL [facility] DEPARTMENT OF PATHOLOGY AND GENOMIC MEDICINE RBC 4.15 (L) 4.40 - 6.00 m/uL [facility] DEPARTMENT OF PATHOLOGY AND GENOMIC MEDICINE HGB 10.2 (L) 14.0 - 18.0 g/dL [facility] DEPARTMENT OF PATHOLOGY AND GENOMIC MEDICINE HCT 31.4 (L) 41.0 - 51.0 % [facility] DEPARTMENT OF PATHOLOGY AND GENOMIC MEDICINE MCV 75.7 (L) 82.0 - 100.0 fL [facility] DEPARTMENT OF PATHOLOGY AND GENOMIC MEDICINE MCH 24.6 (L) 27.0 - 34.0 pg [facility] DEPARTMENT OF PATHOLOGY AND GENOMIC MEDICINE MCHC 32.5 31.0 - 37.0 g/dL [facility] DEPARTMENT OF PATHOLOGY AND GENOMIC MEDICINE RDW - SD 50.6 37.0 - 55.0 fL [facility] DEPARTMENT OF PATHOLOGY AND GENOMIC MEDICINE MPV 10.1 8.8 - 13.2 fL [facility] DEPARTMENT OF PATHOLOGY AND GENOMIC MEDICINE Platelet count 294 150 - 400 k/uL [facility] DEPARTMENT OF PATHOLOGY AND GENOMIC MEDICINE Specimen Performing Organization Address City/[facility] Phone Number [facility] DEPARTMENT OF PATHOLOGY AND [address] [place], [place] [phone] GENOMIC MEDICINE Type and screen (04/13/2018 10:30 AM CDT)Only the most recent of3 resultswithin the time period is included. ABO grouping O [facility] DEPARTMENT OF PATHOLOGY AND GENOMIC MEDICINE Rh type POS [facility] DEPARTMENT OF PATHOLOGY AND GENOMIC MEDICINE Antibody screen (gel) NEG [facility] DEPARTMENT OF PATHOLOGY AND GENOMIC MEDICINE Specimen Performing Organization Address City/[facility] Phone Number [facility] DEPARTMENT OF PATHOLOGY AND [address] [place], [place] [phone] GENOMIC MEDICINE Comprehensive metabolic panel (04/13/2018 10:30 AM CDT)Only the most recent of3 resultswithin the time period is included. Sodium 134 (L) 135 - 148 [facility] DEPARTMENT OF mEq/L PATHOLOGY AND GENOMIC MEDICINE Potassium 3.2 (L) 3.5 - 5.0 [facility] DEPARTMENT OF mEq/L PATHOLOGY AND GENOMIC MEDICINE Chloride 96 (L) 98 - 112 mEq/L [facility] DEPARTMENT OF PATHOLOGY AND GENOMIC MEDICINE CO2 33 (H) 24 - 31 mEq/L [facility] DEPARTMENT OF PATHOLOGY AND GENOMIC MEDICINE Anion gap 5@ANIO (L) 7 - 15 mEq/L [facility] DEPARTMENT OF PATHOLOGY AND GENOMIC MEDICINE BUN 21 8 - 23 mg/dL [facility] DEPARTMENT OF PATHOLOGY AND GENOMIC MEDICINE Creatinine 4.5 (H) 0.7 - 1.2 [facility] DEPARTMENT OF mg/dL PATHOLOGY AND GENOMIC MEDICINE Glucose 86 65 - 99 mg/dL [facility] DEPARTMENT OF PATHOLOGY AND GENOMIC MEDICINE Calcium 8.0 (L) 8.8 - 10.2 [facility] DEPARTMENT OF mg/dL PATHOLOGY AND GENOMIC MEDICINE Protein 6.0 (L) 6.3 - 8.3 g/dL [facility] DEPARTMENT OF Comment: PATHOLOGY AND [place] 4.6-7.0 g/dL GENOMIC MEDICINE 1 week 4.4-7.6 g/dL 7 months-1year5.1-7.3 g/dL 1-2 years5.6-7.5 g/dL >3 years6.0-8.0 g/dL 18-150 6.3-8.3 g/dL Albumin 2.6 (L) 3.5 - 5.0 g/dL [facility] DEPARTMENT OF PATHOLOGY AND GENOMIC MEDICINE A/G ratio 0.8 0.7 - 3.8 [facility] DEPARTMENT OF PATHOLOGY AND GENOMIC MEDICINE Alkaline phosphatase 223 (H) 40 - 129 U/L [facility] DEPARTMENT OF PATHOLOGY AND GENOMIC MEDICINE AST 16 10 - 50 U/L [facility] DEPARTMENT OF PATHOLOGY AND GENOMIC MEDICINE ALT 9 5 - 50 U/L [facility] DEPARTMENT OF PATHOLOGY AND GENOMIC MEDICINE Total bilirubin 0.2 0.0 - 1.2 [facility] DEPARTMENT OF mg/dL PATHOLOGY AND GENOMIC MEDICINE Specimen Plasma specimen Performing Organization Address City/State/Zipcode Phone Number [facility] DEPARTMENT OF PATHOLOGY AND [address] [place] [address] GENOMIC MEDICINE Respiratory pathogen panel (03/22/2018 9:35 PM CDT) Pathologist [facility] Respiratory Negative for all pathogens tested: [facility] DEPARTMENT OF pathogen panel Negative for Adenovirus PATHOLOGY AND Negative for Coronavirus HKU1 GENOMIC MEDICINE Negative for Coronavirus NL63 Negative for Coronavirus 229E Negative for Coronavirus OC43 Negative for Human Metapneumovirus Negative for Rhinovirus/Enterovirus Negative for Influenza A Negative for Influenza A/H1 Negative for Influenza A/H3 Negative for Influenza A/H1-2009 Negative for Influenza B Negative for Parainfluenza Virus 1 Negative for Parainfluenza Virus 2 Negative for Parainfluenza Virus 3 Negative for Parainfluenza Virus 4 Negative for Respiratory Syncytial Virus Negative for Bordetella pertussis Negative for Chlamydophila pneumoniae Negative for Mycoplasma pneumoniae This real-time PCR assay detects the presence of nucleic acids (RNA or DNA) for the respiratory pathogens listed. A result of "Not-detected" does not exclude the possibility of the presence of one or more pathogens at concentrations less than the detectable limits of the assay. Comment: Specimen Information Specimen Source: Nares Specimen Site: Other Specimen Nares - Other- Detailed Description Required Performing Organization Address City/State/Zipcode Phone Number [facility] DEPARTMENT OF PATHOLOGY AND [address] [place] [address] GENOMIC MEDICINE Hemodialysis (03/22/2018 5:13 PM CDT) Narrative Performed At Amaury Hayden Jr., MD 03/22/20185:14 PM Roula York MD PhD Андрей Treviño, MD Amaury Nagy Sr, MD Joi Link Jr, ACNPRachel Rucker, AGACNPCarol Thornton, AGACNPJudy Wilson, ACNP Hemodialysis Procedure Note Indication: ESRD Revaclear 300 x 4 hours UF as tolerated Na 140 K 3 HCO3 35 Ca 2.5 Qb 350 cc/min Anticoagulation: saline flushes only Amaury Hayden M.D. [facility] [phone] ECG 12 lead (03/22/2018 5:42 AM CDT)Only the most recent of3 resultswithin the time period is included. Pathologist [facility] Ventricular rate 67 [facility] Atrial rate 67 [facility] SC interval 142 [facility] QRSD interval 76 [facility] QT interval 462 [facility] QTC interval 488 [facility] P axis 1 50 [facility] QRS axis 1 -3 [facility] MUSE T wave axis 8 [facility] MUSE EKG impression Normal sinus rhythm-Low [facility] MUSE voltage QRS-Prolonged QT-Abnormal ECG-In automated comparison with ECG of 21-MAR-2018 22:03,-No significant change was found- Specimen Performing Organization Address City/[facility]/Zipcode Phone Number [facility] MUSE [address] [place] [address] Troponin (03/22/2018 12:15 AM CDT)Only the most recent of3 resultswithin the time period is included. Troponin <0.30 0.00 - 0.30 [facility] DEPARTMENT OF Comment: ng/mL PATHOLOGY AND 0.30 - 1.49 ng/mlMay indicate increased risk of acute GENOMIC MEDICINE coronary syndrome. >=1.5 ng/mlConsistent with acute myocardial infarction. The diagnostic value of a single normal or non-diagnostic result is questionable.Serial samples at 2-6 hour intervals are required to rule out acute myocardial injury. Specimen Plasma specimen Performing Organization Address City/[facility]/Zipcode Phone Number [facility] DEPARTMENT OF PATHOLOGY AND [address] [place] [id number] Abdomen Pelvis Wo Contrast (03/21/2018 11:01 PM CDT) Specimen Narrative Performed At CT ABDOMEN PELVIS WO CONTRAST [facility] CLINICAL INDICATION:Abd painunspecified, Nauseavomiting TECHNIQUE: Multidetector CT of the abdomen and pelvis was performed without intravenous administration of iodinated contrast with multiplanar reformats. CT scans are performed using radiation dose reduction techniques (iterative reconstruction and/or automated exposure control). Technical factors are evaluated and adjusted to ensure appropriate moderation of exposure. Automated dose management technology is applied to adjust radiation exposure while achieving a diagnostic quality image. COMPARISON:CT chest/abdomen/pelvis 12/29/2017. FINDINGS: Lower chest: Small bilateral effusions with bibasilar atelectasis. Small pericardial effusion. Liver:Normal. Gallbladder and biliary:Normal. Pancreas:Normal. Spleen:Normal. Gastrointestinal:Large and small bowel are normal in caliber. Relatively large amount of stool in the colon. Appendix is not visualized. No focal inflammatory changes within the right lower quadrant of the abdomen. Adrenals:Normal. Kidneys and ureters:No mass or hydronephrosis. Urinary bladder:Normal. Lymph nodes:No enlarged lymph nodes in the abdomen or pelvis. Peritoneum: Small ascites. Vascular:Limited evaluation given lack of intravenous contrast. Extensive vascular calcification. Reproductive organs:The prostate is enlarged. Abdominal wall: Anasarca. Bones:No acute bony abnormality. IMPRESSION: Examination is limited by lack of intravenous contrast and minimal fat within the abdominal viscera. Within this limitation: Small bilateral effusions and a small pericardial effusion, increased from the prior study. Generalized anasarca. Small amount of free fluid in the abdomen. Moderate amount of stool in the colon. [facility]-[id number] Procedure Note Interface, Radiology Results Incoming - 03/21/2018 11:[address] ABDOMEN PELVIS WO CONTRAST CLINICAL INDICATION: Abd pain unspecified, Nausea vomiting TECHNIQUE: Multidetector CT of the abdomen and pelvis was performed without intravenous administration of iodinated contrast with multiplanar reformats. CT scans are performed using radiation dose reduction techniques (iterative reconstruction and/or automated exposure control). Technical factors are evaluated and adjusted to ensure appropriate moderation of exposure. Automated dose management technology is applied to adjust radiation exposure while achieving a diagnostic quality image. COMPARISON: CT chest/abdomen/pelvis 12/29/2017. FINDINGS: Lower chest: Small bilateral effusions with bibasilar atelectasis. Small pericardial effusion. Liver: Normal. Gallbladder and biliary: Normal. Pancreas: Normal. Spleen: Normal. Gastrointestinal: Large and small bowel are normal in caliber. Relatively large amount of stool in the colon. Appendix is not visualized. No focal inflammatory changes within the right lower quadrant of the abdomen. Adrenals: Normal. Kidneys and ureters: No mass or hydronephrosis. Urinary bladder: Normal. Lymph nodes: No enlarged lymph nodes in the abdomen or pelvis. Peritoneum: Small ascites. Vascular: Limited evaluation given lack of intravenous contrast. Extensive vascular calcification. Reproductive organs: The prostate is enlarged. Abdominal wall: Anasarca. Bones: No acute bony abnormality. IMPRESSION: Examination is limited by lack of intravenous contrast and minimal fat within the abdominal viscera. Within this limitation: Small bilateral effusions and a small pericardial effusion, increased from the prior study. Generalized anasarca. Small amount of free fluid in the abdomen. Moderate amount of stool in the colon. [facility]-[id number] Performing Organization Address City/State/Zipcode Phone Number [facility] [address] [place] [phone] Partial thromboplastin time, activated (03/21/2018 8:52 PM CDT)Only the most recent of2 resultswithin the time period is included. PTT 39.2 (H) 23.0 - 36.0 [facility] DEPARTMENT OF Comment: sec PATHOLOGY AND PTT therapeutic range for unfractionated heparin is GENOMIC MEDICINE 61.0-112.0 seconds which corresponds to Anti-Xa 0.3-0.7 U/ml. Specimen Blood Performing Organization Address City/[facility]ode Phone Number [facility] DEPARTMENT OF PATHOLOGY AND [address] [place] [phone] [facility] Prothrombin time with INR (03/21/2018 8:52 PM CDT)Only the most recent of2 resultswithin the time period is included. Prothrombin time 15.8 (H) 12.0 - 15.0 [facility] DEPARTMENT OF sec PATHOLOGY AND GENOMIC MEDICINE INR 1.2 [facility] DEPARTMENT OF Comment: PATHOLOGY AND The International Normalized Ratio (INR) is a therapeutic GENOMIC MEDICINE monitoring tool for patients who are stable on oral anticoagulant therapy. An INR of 2.0-3.0 is suggested for deep vein thrombosis/pulmonary embolism. Specimen Blood Performing Organization Address [facility] Centercode Phone Number [facility] DEPARTMENT OF PATHOLOGY AND [address] [place] [phone] [facility] B natriuretic peptide (03/21/2018 8:52 PM CDT)Only the most recent of2 resultswithin the time period is included. BNP 940 (H) 0 - 100 pg/mL [facility] DEPARTMENT OF PATHOLOGY AND GENOMIC MEDICINE Specimen Blood Performing Organization Address City/[facility]/Zipcode Phone Number [facility] DEPARTMENT OF PATHOLOGY AND [address] [place] [address] GENOMIC MEDICINE Lipase level (03/21/2018 8:52 PM CDT) Lipase 18 13 - 60 U/L [facility] DEPARTMENT OF PATHOLOGY AND GENOMIC MEDICINE Specimen Plasma specimen Performing Organization Address City/[facility]/Zipcode Phone Number [facility] DEPARTMENT OF PATHOLOGY AND [address] [place] [id number] [facility] MEDICINE XR Chest 2 Vw (03/21/2018 8:46 PM CDT)Only the most recent of2 resultswithin the time period is included. Specimen Narrative Performed At EXAMINATION:XR CHEST 2 VW [facility] CLINICAL HISTORY:Coughnew onset, Shortness of breath COMPARISON:March 02, 2018 IMPRESSION: Moderate bilateral pleural effusions, increased from prior. There is cardiomegaly and pulmonary vascular congestion. [facility]-[id number] Procedure Note Hm Interface, Radiology Results Incoming - 03/21/2018 10:12 PM CDT EXAMINATION: XR CHEST 2 VW CLINICAL HISTORY: Cough new onset, Shortness of breath COMPARISON: March 02, 2018 IMPRESSION: Moderate bilateral pleural effusions, increased from prior. There is cardiomegaly and pulmonary vascular congestion. [facility]-[id number] Performing Organization Address City/[facility] Centercode Phone Number [facility] [address] [place], [place] [phone] Prepare RBC, 2 Units (03/08/2018 9:00 AM CDT) Product name Red Cells AS1 [facility] DEPARTMENT OF Leukored Irrad PATHOLOGY AND GENOMIC MEDICINE Unit number [id number] [facility] DEPARTMENT OF PATHOLOGY AND GENOMIC MEDICINE Product code [id number] [facility] DEPARTMENT OF PATHOLOGY AND GENOMIC MEDICINE Dispense status Transfused [facility] DEPARTMENT OF PATHOLOGY AND GENOMIC MEDICINE Blood expiration [id number] [facility] DEPARTMENT OF date PATHOLOGY AND GENOMIC MEDICINE Blood type code 5100 [facility] DEPARTMENT OF PATHOLOGY AND GENOMIC MEDICINE Blood type O POSITIVE [facility] DEPARTMENT OF PATHOLOGY AND GENOMIC MEDICINE Product name Red Cells AS1 [facility] DEPARTMENT OF Leukored Irrad PATHOLOGY AND GENOMIC MEDICINE Unit number [id number] [facility] DEPARTMENT OF PATHOLOGY AND GENOMIC MEDICINE Product code [id number] [facility] DEPARTMENT OF PATHOLOGY AND GENOMIC MEDICINE Dispense status Transfused [facility] DEPARTMENT OF PATHOLOGY AND GENOMIC MEDICINE Blood expiration [id number] [facility] DEPARTMENT OF date PATHOLOGY AND GENOMIC MEDICINE Blood type code 5100 [facility] DEPARTMENT OF PATHOLOGY AND GENOMIC MEDICINE Blood type O POSITIVE [facility] DEPARTMENT OF PATHOLOGY AND GENOMIC MEDICINE Specimen Performing Organization Address City/[facility]/Zipcode Phone Number [facility] DEPARTMENT OF PATHOLOGY AND [address] [place] [phone] GENOMIC MEDICINE Smear review (03/08/2018 7:45 AM CDT) Platelet slide review Teresa adequate [facility] DEPARTMENT OF PATHOLOGY AND GENOMIC MEDICINE Anisocytosis Moderate [facility] DEPARTMENT OF PATHOLOGY AND GENOMIC MEDICINE Tear drop cells Occasional [facility] DEPARTMENT OF PATHOLOGY AND GENOMIC MEDICINE Schistocytes Moderate (A) [facility] DEPARTMENT OF PATHOLOGY AND GENOMIC MEDICINE Ovalocytes Moderate [facility] DEPARTMENT OF PATHOLOGY AND GENOMIC MEDICINE Specimen Performing Organization Address City/[facility]/Zipcode Phone Number [facility] DEPARTMENT OF PATHOLOGY AND [address] [place] [address] GENOMIC MEDICINE XR Foot 3+ Vw Left (03/04/2018 2:59 PM CDT)Only the most recent of2 resultswithin the time period is included. Specimen Narrative Performed At EXAMINATION:XR FOOT 3VW LEFT [facility] CLINICAL HISTORY:status-post amputation COMPARISON:None. IMPRESSION: Extensive vascular calcifications are present. 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 No bone destruction is identified. [facility]-[id number] Procedure Note Hm Interface, Radiology Results Incoming - 03/04/2018 3:09 PM CDT EXAMINATION: XR FOOT 3 VW LEFT CLINICAL HISTORY: status-post amputation COMPARISON: None. IMPRESSION: Extensive vascular calcifications are present. 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 No bone destruction is identified. [facility]-[id number] Performing Organization Address [facility] Centercode Phone Number [facility] [address] [place] [address] MRI Foot Wo Contrast Left (03/03/2018 9:39 PM CDT) Specimen Narrative Performed At MRI FOOT WO CONTRAST LEFT [facility] CLINICAL INDICATION:Osteomyelitis suspectedfoot swellingdiabetic TECHNIQUE:Multisequence multiplanar MR imaging of the left foot was performed without gadolinium contrast. COMPARISON:01/01/2018 FINDINGS: BONES:As on prior exam, there are technical difficulties imaging the toes. The distal and middle phalanges are very poorly visualized and assessment is nondiagnostic. There is however better visualization of the proximal phalanges which again demonstrate prominent increased T2 signal through the second, third toe now with edema in the fifth proximal phalanges as well as the base of the fourth. There is now increasing low T1 signal in the second and third proximal phalanges suggestive of developing osteomyelitis. Edema of the second and third metatarsal heads is also noted with minimal edema in the first fifth metatarsal head. The more proximal metatarsals and visualized hindfoot are normal in signal intensity. JOINT:No joint effusion. SOFT TISSUES:As on prior exam, there is extensive loss of soft tissue from the distal foot with marked loss of tissue about the toes. Gas along the first digit and in the interspace on prior recent CT are not as well visualized on the MRI. No drainable collection is identified. OTHER:If it management would change, consider tagged white cell scan for most specific evaluation for involvement of osteomyelitis in the foot. IMPRESSION: Limited MR with findings for osteomyelitis particularly involving the second and third toes but early osteomyelitis of the other digits not excluded. Edema is noted in the metatarsal heads as well. Please see report. Thank you for allowing us to participate in the care of your patient [facility]-[id number] Procedure Note Hm Interface, Radiology Results Incoming - 03/10/2018 2:59 PM CDT MRI FOOT WO CONTRAST LEFT CLINICAL INDICATION: Osteomyelitis suspected foot swelling diabetic TECHNIQUE: Multisequence multiplanar MR imaging of the left foot was performed without gadolinium contrast. COMPARISON: 01/01/2018 FINDINGS: BONES: As on prior exam, there are technical difficulties imaging the toes. The distal and middle phalanges are very poorly visualized and assessment is nondiagnostic. There is however better visualization of the proximal phalanges which again demonstrate prominent increased T2 signal through the second, third toe now with edema in the fifth proximal phalanges as well as the base of the fourth. There is now increasing low T1 signal in the second and third proximal phalanges suggestive of developing osteomyelitis. Edema of the second and third metatarsal heads is also noted with minimal edema in the first fifth metatarsal head. The more proximal metatarsals and visualized hindfoot are normal in signal intensity. JOINT: No joint effusion. SOFT TISSUES: As on prior exam, there is extensive loss of soft tissue from the distal foot with marked loss of tissue about the toes. Gas along the first digit and in the interspace on prior recent CT are not as well visualized on the MRI. No drainable collection is identified. OTHER: If it management would change, consider tagged white cell scan for most specific evaluation for involvement of osteomyelitis in the foot. IMPRESSION: Limited MR with findings for osteomyelitis particularly involving the second and third toes but early osteomyelitis of the other digits not excluded. Edema is noted in the metatarsal heads as well. Please see report. Thank you for allowing us to participate in the care of your patient [facility]-[id number] Performing Organization Address City/State/Zipcode Phone Number [facility] [phone] Lower Extremity Wo Contrast Left (03/02/2018 10:00 PM CDT) Specimen Narrative Performed At EXAMINATION:CT LOWER EXTREMITY WO CONTRAST LEFT [facility] CLINICAL HISTORY:Osteomyelitis suspectedfoot swellingdiabetic, rule out gas in foot TECHNIQUE: Multiple axial images of the right lower extremity were obtained without contrast. CT imaging was performed with iterative reconstruction technique and/or automated exposure control to reduce radiation dose. COMPARISON:X-rays dated 03/02/2018 IMPRESSION: 1.Soft tissue gas associated with the distal great toe. Minimal gas is noted distally iliopsoas with the phalanges of the second through the fourth lesser toes. 2.No bony destruction, periostitis or osteolysis. MRI may be helpful to assess for osteomyelitis not visible by CT scan. 3.No fluid collections. 4.Diffuse subcutaneous swelling that can be seen with edema or cellulitis. 5.Extensive vascular calcifications. Diffuse osteopenia. [facility]-[id number] Procedure Note Interface, Radiology Results Incoming - 03/02/2018 10:19 PM CDT EXAMINATION: CT LOWER EXTREMITY WO CONTRAST LEFT CLINICAL HISTORY: Osteomyelitis suspected foot swelling diabetic, rule out gas in foot TECHNIQUE: Multiple axial images of the right lower extremity were obtained without contrast. CT imaging was performed with iterative reconstruction technique and/or automated exposure control to reduce radiation dose. COMPARISON: X-rays dated 03/02/2018 IMPRESSION: 1. Soft tissue gas associated with the distal great toe. Minimal gas is noted distally iliopsoas with the phalanges of the second through the fourth lesser toes. 2. No bony destruction, periostitis or osteolysis. MRI may be helpful to assess for osteomyelitis not visible by CT scan. 3. No fluid collections. 4. Diffuse subcutaneous swelling that can be seen with edema or cellulitis. 5. Extensive vascular calcifications. Diffuse osteopenia. [facility]-[id number] Performing Organization Address City/State/Zipcode Phone Number [facility] [address] [place] [address] XR Chest 1 Vw (03/02/2018 4:27 PM CDT) Specimen Narrative Performed At [facility]ST 1 VW INDICATION: Post Thoracentesis COMPARISON: Chest PA and lateral dated 03/01/2018. IMPRESSION: Small right pleural effusion, decreasing. Marked solid opacities medial right lung base increasing, likely increasing subsegmental atelectasis. Small left pleural effusion significantly decreasing. Minimal solid of opacity medial aspect left lower lung decreasing, likely decreasing subsegmental atelectasis. Otherwise unchanged without evidence of pneumothorax. Metallic dental hardware. Minimal cardiomegaly. Minimal left gross aortic arch. Minimal tortuosity descending thoracic aorta. Minimal degenerative changes thoracic spine. [facility]-[id number] Procedure Note Interface, Radiology Results Incoming - 03/02/2018 4:42 PM CDT EXAM: XR CHEST 1 VW INDICATION: Post Thoracentesis COMPARISON: Chest PA and lateral dated 03/01/2018. IMPRESSION: Small right pleural effusion, decreasing. Marked solid opacities medial right lung base increasing, likely increasing subsegmental atelectasis. Small left pleural effusion significantly decreasing. Minimal solid of opacity medial aspect left lower lung decreasing, likely decreasing subsegmental atelectasis. Otherwise unchanged without evidence of pneumothorax. Metallic dental hardware. Minimal cardiomegaly. Minimal left gross aortic arch. Minimal tortuosity descending thoracic aorta. Minimal degenerative changes thoracic spine. [facility]-[id number] Performing Organization Address City/State/Zipcode Phone Number [facility] [address] [place] [address] XR Foot 3+ Vw Right (03/02/2018 4:26 PM CDT) Specimen Narrative Performed At EXAMINATION:XR FOOT 3VW [facility] CLINICAL HISTORY:Osteomyelitis suspectedfoot swellingdiabetic TECHNIQUE: 3 views of the right foot obtained. COMPARISON:12/04/2017 IMPRESSION: Forefoot amputation through the metatarsal shafts. The skin jorje and drains have been removed in interval. Soft tissue swelling of the stomach most pronounced over the first metatarsal, with subtle periosteal reaction at the distal end of the remnant first metatarsal, may indicate osteomyelitis. Remaining visualized bones appear well-maintained. Extensive atherosclerotic calcification. Pes planus. Mild to moderate degenerative changes throughout the midfoot. [facility]-[id number] Procedure Note Interface, Radiology Results Incoming - 03/02/2018 4:48 PM CDT EXAMINATION: XR FOOT 3 VW RIGHT CLINICAL HISTORY: Osteomyelitis suspected foot swelling diabetic TECHNIQUE: 3 views of the right foot obtained. COMPARISON: 12/04/2017 IMPRESSION: Forefoot amputation through the metatarsal shafts. The skin jorje and drains have been removed in interval. Soft tissue swelling of the stomach most pronounced over the first metatarsal, with subtle periosteal reaction at the distal end of the remnant first metatarsal, may indicate osteomyelitis. Remaining visualized bones appear well-maintained. Extensive atherosclerotic calcification. Pes planus. Mild to moderate degenerative changes throughout the midfoot. [facility]-[id number] Performing Organization Address City/State/Zipcode Phone Number [facility] [address] [place] [address] US Thoracentesis With Imaging (03/02/2018 3:59 PM CDT) Specimen Narrative Performed At EXAMINATION:US THORACENTESIS WITH IMAGING [facility] CLINICAL HISTORY:left pleural effusionesrd COMPARISON:None. TECHNIQUE: The procedure's risks, benefits, and alternatives were discussed with the patient and written, informed consent was obtained. Using ultrasound guidance, the left pleural effusion was localized and the overlying posterior chest was prepped and draped in the usual sterile fashion. 1% buffered lidocaine was used for local anesthesia. All elements of maximal sterile barrier technique were followed. A 5 [place] Yueh catheter was inserted into the pleural space and 7 50 cc of pleural fluid was removed. Post procedure images reveal a small residual effusion. The patient tolerated the procedure without difficulty and was discharged to the radiology recovery area for postprocedure chest x-ray prior to discharge. EBL: None. COMPLICATIONS: None. SPECIMENS: As above. IMPRESSION: Successful ultrasound-guided left thoracentesis with removal of 750 mL of pleural fluid. [facility]-[id number] Procedure Note Interface, Radiology Results Incoming - 03/02/2018 4:06 PM CDT EXAMINATION: US THORACENTESIS WITH IMAGING CLINICAL HISTORY: left pleural effusion esrd COMPARISON:None. TECHNIQUE: The procedure's risks, benefits, and alternatives were discussed with the patient and written, informed consent was obtained. Using ultrasound guidance, the left pleural effusion was localized and the overlying posterior chest was prepped and draped in the usual sterile fashion. 1 % buffered lidocaine was used for local anesthesia. All elements of maximal sterile barrier technique were followed. A 5 [place] Yueh catheter was inserted into the pleural space and 7 50 cc of pleural fluid was removed. Post procedure images reveal a small residual effusion. The patient tolerated the procedure without difficulty and was discharged to the radiology recovery area for postprocedure chest x-ray prior to discharge. EBL: None. COMPLICATIONS: None. SPECIMENS: As above. IMPRESSION: Successful ultrasound-guided left thoracentesis with removal of 750 mL of pleural fluid. [facility]-[id number] Performing Organization Address City/[facility]/Zipcode Phone Number [facility] [address] [place] [phone] Cell count and differential, body fluid (03/02/2018 3:31 PM CDT) [facility] fluid type Pleural [facility] DEPARTMENT OF PATHOLOGY AND GENOMIC MEDICINE Color, fluid Colorless [facility] DEPARTMENT OF PATHOLOGY AND GENOMIC MEDICINE Appearance, fluid Clear [facility] DEPARTMENT OF PATHOLOGY AND GENOMIC MEDICINE RBC, fluid SEE /CMM [facility] DEPARTMENT OF COMMENTComment: 1+ PATHOLOGY AND (0 - 500 RBC/CMM) GENOMIC MEDICINE Nucleated cells, 167 /CMM [facility] DEPARTMENT OF fluid PATHOLOGY AND GENOMIC MEDICINE Fluid mononuclear See Diff [facility] DEPARTMENT OF cell PATHOLOGY AND GENOMIC MEDICINE Neutrophils, fluid 11 % [facility] DEPARTMENT OF PATHOLOGY AND GENOMIC MEDICINE Lymphocytes, fluid 5 % [facility] DEPARTMENT OF PATHOLOGY AND GENOMIC MEDICINE Mesothelial cells, 1 % [facility] DEPARTMENT OF fluid PATHOLOGY AND GENOMIC MEDICINE Macrophages, fluid 83 % [facility] DEPARTMENT OF PATHOLOGY AND GENOMIC MEDICINE Specimen Fluid Performing Organization Address [facility] Phone Number [facility] DEPARTMENT OF PATHOLOGY AND [address] [place] [phone] GENOMIC MEDICINE Protein, misc fluid (03/02/2018 3:31 PM CDT) Fluid type Pleural [facility] DEPARTMENT OF PATHOLOGY AND GENOMIC MEDICINE Protein, fluid 1.7 g/dL [facility] DEPARTMENT OF Comment: PATHOLOGY AND Analysis performed on Harman 8000 analyzer. This is not an GENOMIC MEDICINE approved methodology for this specimen type;accuracy and clinical significance uncertain. Specimen Fluid Performing Organization Address City/[facility] Phone Number [facility] DEPARTMENT OF PATHOLOGY AND [address] [place] [address] GENOMIC MEDICINE LDH, misc fluid (03/02/2018 3:31 PM CDT) Fluid type Pleural [facility] DEPARTMENT OF PATHOLOGY AND GENOMIC MEDICINE LDH, fluid 64 U/L [facility] DEPARTMENT OF Comment: PATHOLOGY AND Analysis performed on Harman 8000 analyzer. This is not an GENOMIC MEDICINE approved methodology for this specimen type;accuracy and clinical significance uncertain. Specimen Fluid Performing Organization Address City/[facility]/Zipcode Phone Number [facility] DEPARTMENT OF PATHOLOGY AND [address] [place] [phone] GENOMIC MEDICINE Pv duplex arterial lower extremity (03/02/2018 11:22 AM CDT) Specimen Narrative Performed At [facility] Vascular Ultrasound Laboratory Lower Extremity Arterial Duplex Report [id number] [place] [address] Pat.Name:ANTHONY STOVER GPat.ID:[id number] .Date: 03/02/2018 Refer.MD:JHONY BASS MD Exam Time: 9:14:00 AMStudy Type:LE Arterial Height:68inDOBAge: 1955,62Y Sex: MALESonogrphr: Roger Roque, RDMS, RVT Pat. Stat.:Inpatient Room:[address] TapeVol: , CPT - 4: 45101, 86356 Echo Event ID:[id number] Order ID:[id number] Reason for Study:Peripheral arterial disease. 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 Angioplasty on 11/17/17. Right foot amputation transmetatarsal 12/03/17. Procedures:B-flow imaging, Colorflow, Grayscale/2D, Pulsed wave Doppler Race:B SUMMARY: DUPLEX SCAN OBSERVATIONS: RIGHT:Extensive, concentric, diffusely calcified arteries noted throughout the lower extremity. Focally elevated velocities (via Doppler and colorflow) noted within the right proximal femoral artery, distal femoral artery, proximal posterior tibial, distal posterior tibial artery. Absent flow noted within the anterior tibial artery with reconstitution of the dorsalis pedis artery via collaterals. LEFT:Extensive, concentric, diffusely calcified arteries noted throughout the lower extremity. Focally elevated velocities (via Doppler and colorflow) noted within the left proximal femoral artery, mid femoral, proximal popliteal, distal popliteal, mid posterior tibial, proximal peroneal, mid peroneal, distal peroneal, and distal anterior tibial arteries. ANKLE/BRACHIAL INDEX: RIGHTLEFT Brachial Artery Pressure AVF/Graft 124 mmHg DPNon-compressible 150 mmHg PTNon-compressible 162 mmHg TIM DPNon-compressible 1.21 TIM PTNon-compressible 1.31 TOE/BRACHIAL INDEX: Great ToeAmputation0 mmHg TBI0.000.00 PRELIMINARY FINDINGS: 1.50-75% stenosis (2.82) noted within the right proximal femoral artery. 2.50-75% stenosis (2.61) within right distal femoral artery. 3.50-75% stenosis (2.39) noted in right proximal posterior tibial artery. 4.< 75% stenosis (3.95) within the right distal posterior tibial artery. 5.Total occlusion of the anterior tibial artery with reconstitution of dorsalis pedis artery via collaterals. 6.Less than 50% stenosis noted within left proximal and mid femoral artery. 7.Less than 50% stenosis (1.87) proximal left popliteal artery. 8.50-75% stenosis (3.42) noted within the left mid posterior tibial artery. 9.Multiple areas of 50-75% stenosis within the peroneal artery: prox (3.6), mid (2.1), and distal (2.9) segments. 10. 50-75% stenosis (3.08) noted within the left distal anterior tibial artery. PHYSICIAN INTERPRETATION: 1.Bilateral lower extremity arterial exam demonstrates extensive diffuse irregular calcified plaque with segmental stenosis occlusive disease. There is occlusion of the right anterior tibial artery. MEASUREMENTS: DOPPLER Right FLOAT TENDER prox FLOAT TENDER prox PSV83.9 cm/s Profunda Profunda PSV96 cm/s SFA Dist SFA Dist PSV83 cm/s SFA Mid SFA Mid PSV 88 cm/s Right SFA Prox SFA Prox PSV 175 cm/s Right FLOAT TENDER Mid FLOAT TENDER Mid PSV 84 cm/s Left FLOAT TENDER Mid FLOAT TENDER Mid BOR186 cm/s Right FLOAT TENDER Dist FLOAT TENDER Dist PSV62 cm/s Left Profunda Profunda PSV92 cm/s Left SFA Prox SFA Prox PSV89 cm/s Left SFA Prox 1 SFA Prox 1 PSV 130 cm/s Left SFA Mid SFA Mid PSV 83 cm/s Left SFA Mid 1 SFA Mid 1 SFG479 cm/s Left SFA Dist SFA Dist PSV94 cm/s Right SFA Dist 1 SFA Dist 1 PSV 217 cm/s Right SFA Dist 2 SFA Dist 2 PSV59 cm/s Right Pop Prox Pop Prox PSV72 cm/s Left Pop Prox Pop Prox PSV 110 cm/s Left Pop Prox 1 Pop Prox 1 PSV 206 cm/s Right Pop Dist Pop Dist PSV85 cm/s Left Pop Dist Pop Dist PSV94 cm/s Left Pop Dist 1 Pop Dist 1 PSV 144 cm/s Left Pop Dist 2 Pop Dist 2 PSV60 cm/s Right TP Trunk Prox TP Trunk Prox P95 cm/s Left TP Trunk Prox TP Trunk Prox P82 cm/s Right TP Trunk Dist TP Trunk Dist P54 cm/s Left TP Trunk Dist TP Trunk Dist P 133 cm/s Right IT SECURITY ADMINISTRATOR Prox IT SECURITY ADMINISTRATOR Prox PSV 129 cm/s Left IT SECURITY ADMINISTRATOR Prox IT SECURITY ADMINISTRATOR Prox PSV 125 cm/s Right IT SECURITY ADMINISTRATOR Mid IT SECURITY ADMINISTRATOR Mid PSV 87 cm/s Left IT SECURITY ADMINISTRATOR Mid IT SECURITY ADMINISTRATOR Mid PSV 64 cm/s Left IT SECURITY ADMINISTRATOR Mid 1 IT SECURITY ADMINISTRATOR Mid 1 WUI771 cm/s Left IT SECURITY ADMINISTRATOR Mid 2 IT SECURITY ADMINISTRATOR Mid 2 HMJ128 cm/s Right IT SECURITY ADMINISTRATOR Distal IT SECURITY ADMINISTRATOR Distal PSV87 cm/s Right IT SECURITY ADMINISTRATOR Dist 1 IT SECURITY ADMINISTRATOR Dist 1 PSV 344 cm/s Left Peroneal Prox Peroneal Prox P52 cm/s Right IT SECURITY ADMINISTRATOR Dist 2 IT SECURITY ADMINISTRATOR Dist 2 PSV30 cm/s Right Peroneal Prox 1 Peroneal Prox 196 cm/s Left Peroneal Prox 1 Peroneal Prox 1 190 cm/s Left Peroneal Prox 2 Peroneal Prox 279 cm/s Right Peroneal Mid Peroneal Mid PS56 cm/s Left Peroneal Mid Peroneal Mid PS39 cm/s Left Peroneal Mid 1 Peroneal Mid 1 81 cm/s Left Peroneal Mid 2 Peroneal Mid 2 99 cm/s Right Peroneal Dist Peroneal Dist P 106 cm/s Left Peroneal Dist Peroneal Dist P55 cm/s Left Peroneal Dist 1 Peroneal Dist 1 159 cm/s Right TRE Prox TRE Prox PSV25 cm/s Left TRE Prox TRE Prox PSV95 cm/s Right TRE Prox 1 TRE Prox 1 PSV41 cm/s Right TRE Prox 2 TRE Prox 2 PSV 0 cm/s Right TRE Mid TRE Mid PSV-21 cm/s Left TRE Mid TRE Mid PSV 55 cm/s Right TRE Mid 2 TRE Mid 2 PSV0 cm/s Right TRE Distal TRE Distal PSV 0 cm/s Left TRE Distal TRE Distal PSV16 cm/s Left TRE Dist 1 TRE Dist 1 PSV36 cm/s Left TRE Dist 2 TRE Dist 2 PSV 111 cm/s Right DPA DPA PSV 39 cm/s Left DPA DPA PSV 23 cm/s Signed 03/02/2018 01:31 PM Adryan Ochoa MD Procedure Note Interface, Radiology Results In - 03/02/2018 1:32 PM CDT Vascular Ultrasound Laboratory Lower Extremity Arterial Duplex Report [id number] [place] [address] Pat.Name: ANTHONY STOVER Pat.ID: [id number] .Date: 03/02/2018 Refer.MD: JHONY BASS MD Exam Time: 9:14:00 AM Study Type:LE Arterial Height: 68in Age: 1 1955,62Y Sex: MALE Sonogrphr: Roger Roque RDMS, RVT Pat. Stat.:Inpatient Room: [address] Vol: , CPT - 4: 31245, [address] Echo Event ID:[id number] Order ID: [id number] Reason for Study:Peripheral arterial disease. 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 Angioplasty on 11/17/17. Right foot amputation transmetatarsal 12/03/17. Procedures:B-flow imaging, Colorflow, Grayscale/2D, Pulsed wave Doppler Race: B SUMMARY: DUPLEX SCAN OBSERVATIONS: RIGHT: Extensive, concentric, diffusely calcified arteries noted throughout the lower extremity. Focally elevated velocities (via Doppler and colorflow) noted within the right proximal femoral artery, distal femoral artery, proximal posterior tibial, distal posterior tibial artery. Absent flow noted within the anterior tibial artery with reconstitution of the dorsalis pedis artery via collaterals. LEFT: Extensive, concentric, diffusely calcified arteries noted throughout the lower extremity. Focally elevated velocities (via Doppler and colorflow) noted within the left proximal femoral artery, mid femoral, proximal popliteal, distal popliteal, mid posterior tibial, proximal peroneal, mid peroneal, distal peroneal, and distal anterior tibial arteries. ANKLE/BRACHIAL INDEX: RIGHT LEFT Brachial Artery Pressure AVF/Graft 124 mmHg DP Non-compressible 150 mmHg PT Non-compressible 162 mmHg TIM DP Non-compressible 1.21 TIM PT Non-compressible 1.31 TOE/BRACHIAL INDEX: Great Toe Amputation 0 mmHg TBI 0.00 0.00 PRELIMINARY FINDINGS: 1. 50-75% stenosis (2.82) noted within the right proximal femoral artery. 2. 50-75% stenosis (2.61) within right distal femoral artery. 3. 50-75% stenosis (2.39) noted in right proximal posterior tibial artery. 4. < 75% stenosis (3.95) within the right distal posterior tibial artery. 5. Total occlusion of the anterior tibial artery with reconstitution of dorsalis pedis artery via collaterals. 6. Less than 50% stenosis noted within left proximal and mid femoral artery. 7. Less than 50% stenosis (1.87) proximal left popliteal artery. 8. 50-75% stenosis (3.42) noted within the left mid posterior tibial artery. 9. Multiple areas of 50-75% stenosis within the peroneal artery: prox (3.6), mid (2.1), and distal (2.9) segments. 10. 50-75% stenosis (3.08) noted within the left distal anterior tibial artery. PHYSICIAN INTERPRETATION: 1. Bilateral lower extremity arterial exam demonstrates extensive diffuse irregular calcified plaque with segmental stenosis occlusive disease. There is occlusion of the right anterior tibial artery. MEASUREMENTS: DOPPLER Right FLOAT TENDER prox FLOAT TENDER prox PSV 83.9 cm/s Profunda Profunda PSV 96 cm/s SFA Dist SFA Dist PSV 83 cm/s SFA Mid SFA Mid PSV 88 cm/s Right SFA Prox SFA Prox PSV 175 cm/s Right FLOAT TENDER Mid FLOAT TENDER Mid PSV 84 cm/s Left FLOAT TENDER Mid FLOAT TENDER Mid PSV 110 cm/s Right FLOAT TENDER Dist FLOAT TENDER Dist PSV 62 cm/s Left Profunda Profunda PSV 92 cm/s Left SFA Prox SFA Prox PSV 89 cm/s Left SFA Prox 1 SFA Prox 1 PSV 130 cm/s Left SFA Mid SFA Mid PSV 83 cm/s Left SFA Mid 1 SFA Mid 1 PSV 123 cm/s Left SFA Dist SFA Dist PSV 94 cm/s Right SFA Dist 1 SFA Dist 1 PSV 217 cm/s Right SFA Dist 2 SFA Dist 2 PSV 59 cm/s Right Pop Prox Pop Prox PSV 72 cm/s Left Pop Prox Pop Prox PSV 110 cm/s Left Pop Prox 1 Pop Prox 1 PSV 206 cm/s Right Pop Dist Pop Dist PSV 85 cm/s Left Pop Dist Pop Dist PSV 94 cm/s Left Pop Dist 1 Pop Dist 1 PSV 144 cm/s Left Pop Dist 2 Pop Dist 2 PSV 60 cm/s Right TP Trunk Prox TP Trunk Prox P 95 cm/s Left TP Trunk Prox TP Trunk Prox P 82 cm/s Right TP Trunk Dist TP Trunk Dist P 54 cm/s Left TP Trunk Dist TP Trunk Dist P 133 cm/s Right IT SECURITY ADMINISTRATOR Prox IT SECURITY ADMINISTRATOR Prox PSV 129 cm/s Left IT SECURITY ADMINISTRATOR Prox IT SECURITY ADMINISTRATOR Prox PSV 125 cm/s Right IT SECURITY ADMINISTRATOR Mid IT SECURITY ADMINISTRATOR Mid PSV 87 cm/s Left IT SECURITY ADMINISTRATOR Mid IT SECURITY ADMINISTRATOR Mid PSV 64 cm/s Left IT SECURITY ADMINISTRATOR Mid 1 IT SECURITY ADMINISTRATOR Mid 1 PSV 107 cm/s Left IT SECURITY ADMINISTRATOR Mid 2 IT SECURITY ADMINISTRATOR Mid 2 PSV 219 cm/s Right IT SECURITY ADMINISTRATOR Distal IT SECURITY ADMINISTRATOR Distal PSV 87 cm/s Right IT SECURITY ADMINISTRATOR Dist 1 IT SECURITY ADMINISTRATOR Dist 1 PSV 344 cm/s Left Peroneal Prox Peroneal Prox P 52 cm/s Right IT SECURITY ADMINISTRATOR Dist 2 IT SECURITY ADMINISTRATOR Dist 2 PSV 30 cm/s Right Peroneal Prox 1 Peroneal Prox 1 96 cm/s Left Peroneal Prox 1 Peroneal Prox 1 190 cm/s Left Peroneal Prox 2 Peroneal Prox 2 79 cm/s Right Peroneal Mid Peroneal Mid PS 56 cm/s Left Peroneal Mid Peroneal Mid PS 39 cm/s Left Peroneal Mid 1 Peroneal Mid 1 81 cm/s Left Peroneal Mid 2 Peroneal Mid 2 99 cm/s Right Peroneal Dist Peroneal Dist P 106 cm/s Left Peroneal Dist Peroneal Dist P 55 cm/s Left Peroneal Dist 1 Peroneal Dist 1 159 cm/s Right TRE Prox TRE Prox PSV 25 cm/s Left TRE Prox TRE Prox PSV 95 cm/s Right TRE Prox 1 TRE Prox 1 PSV 41 cm/s Right TRE Prox 2 TRE Prox 2 PSV 0 cm/s Right TRE Mid TRE Mid PSV -21 cm/s Left TRE Mid TRE Mid PSV 55 cm/s Right TRE Mid 2 TRE Mid 2 PSV 0 cm/s Right TRE Distal TRE Distal PSV 0 cm/s Left TRE Distal TRE Distal PSV 16 cm/s Left TRE Dist 1 TRE Dist 1 PSV 36 cm/s Left TRE Dist 2 TRE Dist 2 PSV 111 cm/s Right DPA DPA PSV 39 cm/s Left DPA DPA PSV 23 cm/s Signed 03/02/2018 01:31 PM Adryan Ochoa MD Performing Organization Address City/State/Zipcode Phone Number [facility] [address] [place] [address] Cytology (non-gynecological) request (03/02/2018 7:54 AM CDT) [facility] DEPARTMENT OF PATHOLOGY AND GENOMIC MEDICINE Cytology See link below [facility] DEPARTMENT OF (non-gynecological) for PDF Lab PATHOLOGY AND report Report GENOMIC MEDICINE Result status This is Final [facility] DEPARTMENT OF Report to PATHOLOGY AND [id number] GENOMIC MEDICINE Specimen Performing Organization Address City/[facility]/Zipcode Phone Number [facility] DEPARTMENT OF PATHOLOGY AND [address] [place] [address] GENOMIC MEDICINE Vitamin B12 level (03/02/2018 6:00 AM CDT) Vitamin B12 1,113 (E) 013 - 420 [facility] DEPARTMENT OF Comment: pg/mL PATHOLOGY AND Significant overlap exists between normal and deficiency states. GENOMIC MEDICINE However, most patients with deficiencies will have Serum B12 <200 pg/mL. Specimen Serum Performing Organization Address City/[facility]/Zipcode Phone Number [facility] DEPARTMENT OF PATHOLOGY AND [address] [place] [address] GENOMIC MEDICINE Phosphorus level (03/02/2018 4:00 AM CDT) Phosphorus 2.7 2.4 - 4.5 mg/dL [facility] DEPARTMENT OF PATHOLOGY AND GENOMIC MEDICINE Specimen Plasma specimen Performing Organization Address [facility] Phone Number [facility] DEPARTMENT OF PATHOLOGY AND [address] [place] [phone] GENOMIC MEDICINE Magnesium level (03/02/2018 4:00 AM CDT) Magnesium 1.9 1.6 - 2.4 mg/dL [facility] DEPARTMENT OF PATHOLOGY AND GENOMIC MEDICINE Specimen Plasma specimen Performing Organization Address [facility] Phone Number [facility] DEPARTMENT OF PATHOLOGY AND [address] [place] [address] GENOMIC MEDICINE LDH (03/02/2018 4:00 AM CDT) LDH 145 87 - 225 U/L [facility] DEPARTMENT OF PATHOLOGY AND GENOMIC MEDICINE Specimen Plasma specimen Performing Organization Address [facility] Phone Number [facility] DEPARTMENT OF PATHOLOGY AND [address] [place] [address] MEDICINE Ferritin level (03/02/2018 4:00 AM CDT) Ferritin level 856 (H) 30 - 400 ng/mL [facility] DEPARTMENT OF PATHOLOGY AND GENOMIC MEDICINE Specimen Plasma specimen Performing Organization Address [facility] Phone Number [facility] DEPARTMENT OF PATHOLOGY AND [address] [place] [address] MEDICINE Creatine kinase, total (CPK) (03/02/2018 4:00 AM CDT) Creatine kinase 44 39 - 308 U/L [facility] DEPARTMENT OF PATHOLOGY AND GENOMIC MEDICINE Specimen Plasma specimen Performing Organization Address [facility] Phone Number [facility] DEPARTMENT OF PATHOLOGY AND [address] [place] [address] GENOMIC MEDICINE Hepatic function panel (03/02/2018 4:00 AM CDT) Albumin 1.7 (L) 3.5 - 5.0 g/dL [facility] DEPARTMENT OF PATHOLOGY AND GENOMIC MEDICINE Total bilirubin <0.2 0.0 - 1.2 [facility] DEPARTMENT OF mg/dL PATHOLOGY AND GENOMIC MEDICINE Bilirubin direct <0.2 0.0 - 0.3 [facility] DEPARTMENT OF mg/dL PATHOLOGY AND GENOMIC MEDICINE Alkaline phosphatase 146 (H) 40 - 129 U/L [facility] DEPARTMENT OF PATHOLOGY AND GENOMIC MEDICINE Protein 6.2 (L) 6.3 - 8.3 g/dL [facility] DEPARTMENT OF Comment: PATHOLOGY AND [place] 4.6-7.0 g/dL GENOMIC MEDICINE 1 week 4.4-7.6 g/dL 7 months-1year5.1-7.3 g/dL 1-2 years5.6-7.5 g/dL >3 years6.0-8.0 g/dL 18-150 6.3-8.3 g/dL ALT 7 5 - 50 U/L [facility] DEPARTMENT OF PATHOLOGY AND GENOMIC MEDICINE AST 18 10 - 50 U/L [facility] DEPARTMENT OF PATHOLOGY AND GENOMIC MEDICINE Specimen Plasma specimen Performing Organization Address City/State/Zipcode Phone Number [facility] DEPARTMENT OF PATHOLOGY AND [address] [place] [address] GENOMIC MEDICINE Lipid panel (03/02/2018 4:00 AM CDT) Cholesterol 151 <200 mg/dL [facility] DEPARTMENT OF PATHOLOGY AND GENOMIC MEDICINE Triglycerides 69 <150 mg/dL [facility] DEPARTMENT OF PATHOLOGY AND GENOMIC MEDICINE HDL cholesterol 31 (L) >40 mg/dL [facility] DEPARTMENT OF PATHOLOGY AND GENOMIC MEDICINE LDL cholesterol 100 (H)Comment: <100 mg/dL [facility] DEPARTMENT Result obtained by OF PATHOLOGY AND direct LDL GENOMIC MEDICINE measurement Lipid panel SeeBelow [facility] DEPARTMENT interpretation Comment: OF PATHOLOGY AND Total Cholesterol (mg/dL) GENOMIC MEDICINE <200 Desirable [id number]-turj >=240High Triglycerides (mg/dL) <150 Normal 128-975Hvozmveqzi-jqeq 200-499High >=500Very high HDL Cholesterol (mg/dL) <40Low (male) <40Low (female) LDL Cholesterol (mg/dL) <100 Optimal 100-129Near or above optimal 464-397Jlpzojrjpl-xedj 160-189High >=190Very high Risk Catergories that modify LDL goals. Risk CatergoriesLDL goal (mg/dL) CHD and CHD risk equivalent<100 (10-year risk >20%) Multiple (2+) risk factors <130 (10-year risk=<20%) 0-1 risk factors <160 (<10-year risk) Defining levels of lipids in metabolic syndrome Triglycerides>=150 mg/dL HDL Cholesterol Men<40 mg/dL Women<40 mg/dL Non-HDL cholesterol is a second target for therapy in persons with high triglycerides (>=200 mg/dL) Specimen Plasma specimen Performing Organization Address City/State/Zipcode Phone Number [facility] DEPARTMENT OF PATHOLOGY AND [address] [place] [address] [facility] CT Chest Wo Contrast (02/28/2018 7:38 PM CDT) Specimen Narrative Performed At CT CHEST WO CONTRAST [facility] CLINICAL INDICATION: Pleural effusion TECHNIQUE:Multidetector CT imaging of the chest was performed without intravenous contrast with multiplanar reconstructions. CT scans are performed using radiation dose reduction techniques (iterative reconstruction and/or automated exposure control). Technical factors are evaluated and adjusted to ensure appropriate moderation of exposure. Automated dose management technology is applied to adjust radiation exposure while achieving a diagnostic quality image. COMPARISON:CT 12/29/2017. Chest radiograph 02/28/2018. FINDINGS: Lungs and large airways: Bilateral compressive atelectasis. Left lower lobe appears completely collapsed. Majority of right lower lobe is collapsed. Pleura: Moderate bilateral pleural effusions. Heart and pericardium:Heart size is enlarged. Trace pericardial effusion. Vessels:Moderate calcific atherosclerosis of the thoracic aorta. Grossly no aortic aneurysm. Main pulmonary artery measures 3.4 cm in diameter. Coronary atherosclerosis. Evaluation of vessel lumens is limited due to lack of IV contrast. Mediastinum and mane: Generalized edema throughout the soft tissues including mediastinum. Lymph nodes:Limited evaluation due to diffuse edema and lack of IV contrast. No pathological adenopathy in the mane, axilla or mediastinum. Chest wall: Diffuse subcutaneous soft tissue edema. Bones:Mild degenerative changes. There is some sclerosis within left 10th posterior rib, possibly related to healing fracture. Upper abdomen:No focal abnormality detected with limited evaluation. IMPRESSION: Anasarca. Moderate bilateral pleural effusions and associated compressive atelectasis. [facility]-[id number] Procedure Note Interface, Radiology Results Incoming - 02/28/2018 8:[address] CHEST WO CONTRAST CLINICAL INDICATION: Pleural effusion TECHNIQUE: Multidetector CT imaging of the chest was performed without intravenous contrast with multiplanar reconstructions. CT scans are performed using radiation dose reduction techniques (iterative reconstruction and/or automated exposure control). Technical factors are evaluated and adjusted to ensure appropriate moderation of exposure. Automated dose management technology is applied to adjust radiation exposure while achieving a diagnostic quality image. COMPARISON: CT 12/29/2017. Chest radiograph 02/28/2018. FINDINGS: Lungs and large airways: Bilateral compressive atelectasis. Left lower lobe appears completely collapsed. Majority of right lower lobe is collapsed. Pleura: Moderate bilateral pleural effusions. Heart and pericardium: Heart size is enlarged. Trace pericardial effusion. Vessels: Moderate calcific atherosclerosis of the thoracic aorta. Grossly no aortic aneurysm. Main pulmonary artery measures 3.4 cm in diameter. Coronary atherosclerosis. Evaluation of vessel lumens is limited due to lack of IV contrast. Mediastinum and mane: Generalized edema throughout the soft tissues including mediastinum. Lymph nodes: Limited evaluation due to diffuse edema and lack of IV contrast. No pathological adenopathy in the mane, axilla or mediastinum. Chest wall: Diffuse subcutaneous soft tissue edema. Bones: Mild degenerative changes. There is some sclerosis within left 10th posterior rib, possibly related to healing fracture. Upper abdomen: No focal abnormality detected with limited evaluation. IMPRESSION: Anasarca. Moderate bilateral pleural effusions and associated compressive atelectasis. [facility]-[id number] Performing Organization Address [facility] Phone Number [employer] [address] [place] [address] XR Chest 1 Vw Portable (02/28/2018 5:44 PM CDT) Specimen Narrative Performed At EXAMINATION:XR CHEST 1 VW PORTABLE [facility] CLINICAL HISTORY:ICU ptrecent tube or catheter insert COMPARISON:December 28, 2017 IMPRESSION: 1.There are moderate bilateral basal pleural effusions greater on the left with associated volume loss, increasing since the prior exam.. 2.Heart size is at the upper limits normal. 3.There is mild vascular congestion. [id number] Procedure Note [facility], Radiology Results Incoming - 02/28/2018 5:51 PM CDT EXAMINATION: XR CHEST 1 VW PORTABLE CLINICAL HISTORY: ICU pt recent tube or catheter insert COMPARISON: December 28, 2017 IMPRESSION: 1. There are moderate bilateral basal pleural effusions greater on the left with associated volume loss, increasing since the prior exam.. 2. Heart size is at the upper limits normal. 3. There is mild vascular congestion. [facility]-[id number] Performing Organization Address [facility] Phone Number [employer] [address] [place] [address] after 01/30/2018 Insurance Payer Benefit Plan / Subscriber ID Effective Dates Phone Address Type Group BCBS BCBS CHOICE xxxxxxxxxxxxxxx 2016-Present PPO PPO/FEDERAL EMPL PPO MEDICARE MEDICARE PART A xxxxxxxxxxx 2016-Present [place], [place] Medicare AND B [phone] [id number] (Work) Advance Directives Patient has advance care planning documents, and code status on file. For more information, please contact:Anderson Jones[address] [place] [address] Code Status Date Activated Date Inactivated Comments Full Code 02/28/2018 8:53 PM 03/09/2018 11:28 PM Code Status decision reached by: Patient
[2019-01-31 17:40] LABS: Absolute Lymphocytes (CBC) 0.7 K/uL (0.7-4.9); Basophils % 2.2 % (0-1.3); Eosinophils % 6.1 % (0-4.4); Hematocrit 27.8 % (39.6-49.0); Lymphocytes % 13.7 % (15.3-44.8); MPV 7.8 fL (7.6-11.3); Monocytes % 12.3 % (3.3-12.3); RBC Red Blood Cell Count 3.41 M/uL (4.33-5.43)
[2019-01-31 17:48] LABS: Potassium 3.9 mmol/L (3.5-5.1)
--- NOTE | 2019-01-31 18:20 | ER ---
Nurse's Notes [facility] Name: Allen Doe Age: 63 yrs Sex: Male : 1955 Arrival Date: 01/31/2019 Time: 16:52 Bed 15 Private MD: Diagnosis: Anemia in chronic kidney disease Presentation: 01/31 17:01 Presenting complaint: Patient states: He was sent by Dr. Love to have a blood aj1 transfusion. Transition of care: patient was not received from another setting of care. Onset of symptoms was January 31, 2019. Risk Assessment: Do you want to hurt yourself or someone else? Patient reports no desire to harm self or others. Initial Sepsis Screen: Does the patient meet any 2 criteria? No. Patient's initial sepsis screen is negative. Does the patient have a suspected source of infection? No. Patient's initial sepsis screen is negative. Care prior to arrival: None. 17:01 Method Of Arrival: Ambulatory aj1 17:01 Acuity: AD 3 aj1 Triage Assessment: 17:03 General: Appears in no apparent distress. comfortable, Behavior is calm, cooperative, aj1 appropriate for age. Pain: Denies pain. Neuro: Level of Consciousness is awake, alert, obeys commands. Cardiovascular: Patient's skin is warm and dry. Respiratory: Airway is patent Respiratory effort is even, unlabored, Respiratory pattern is regular, symmetrical. Historical: - Allergies: 17:03 cefepime; aj1 - Home Meds: 17:03 clonidine HCl 0.1 mg Oral tab 1 tab 3 times per day [Active]; Coreg Oral BID [Active]; aj1 - PMHx: 17:03 Bronchitis; Diabetes - IDDM; Dialysis; ESRD; Hypertension; aj1 - Immunization history:: Flu vaccine is up to date. - Social history:: Smoking status: Patient/guardian denies using tobacco, Patient/guardian denies using alcohol, street drugs, The patient lives with family. - Ebola Screening: : Patient denies travel to an Ebola-affected area in the 21 days before illness onset. - Family history:: not pertinent. Screenin:08 Abuse screen: Denies threats or abuse. Nutritional screening: No deficits noted. rb1 Tuberculosis screening: No symptoms or risk factors identified. Fall Risk No fall in past 12 months (0 pts). Secondary diagnosis (15 points) impaired mobility, IV access (20 points). Ambulatory Aid- Crutches/Cane/Walker (15 pts). Gait- Impaired (20 pts.). Mental Status- Oriented to own ability (0 pts). Total Kenyon Fall Scale indicates High Risk Score (45 or more points). Fall prevention measures have been instituted. Side Rails Up X 2 Placed Close to Nursing Station 1:1 Attendant Assigned Frequent Obs/Assessments Occuring Family Present and informed to notify staff if the need to leave the bedside As available patient and family educated on Fall Prevention Program and Strategies. Assessment: 17:07 General: Appears in no apparent distress. comfortable, Behavior is calm, cooperative. rb1 Pain: Denies pain. Neuro: Level of Consciousness is awake, alert, obeys commands, Oriented to person, place, time, situation. Cardiovascular: Capillary refill < 3 seconds is brisk in bilateral fingers. Respiratory: Airway is patent Respiratory effort is even, unlabored, Respiratory pattern is regular, symmetrical. GI: No signs and/or symptoms were reported involving the gastrointestinal system. : No signs and/or symptoms were reported regarding the genitourinary system. Derm: Skin is dry, Skin is normal, Skin temperature is warm. Musculoskeletal: Amputation of bilateral BKA. 17:30 Reassessment: Pt sent for blood transfusion. Attempting to clarify orders with ordering ss physician. Dr. Riojas has been paged as Dr. Love is not accepting calls after hours. Awaiting call back. 18:00 Reassessment: Patient appears in no apparent distress at this time. No changes from rb1 previously documented assessment. 18:57 Reassessment: Patient appears in no apparent distress at this time. Patient and/or rb1 family updated on plan of care and expected duration. Pain level reassessed. Patient is alert, oriented x 3, equal unlabored respirations, skin warm/dry/pink. Patient denies pain at this time. Vital Signs: 17:03 BP 128 / 60; Pulse 63; Resp 18; Temp 97.0(TE); Pulse Ox 100% on R/A; Weight 53.52 kg aj1 (R); Height 5 ft. 9 in. (175.26 cm) (R); Pain 0/10; 18:00 BP 127 / 61; Pulse 65; Resp 17; Temp 97.6(TE); Pulse Ox 100% ; Pain 0/10; rb1 18:56 BP 128 / 63; Pulse 67; Resp 19; Temp 97.9(O); Pulse Ox 100% on R/A; Pain 0/10; rb1 17:03 Body Mass Index 17.43 (53.52 kg, 175.26 cm) aj1 ED Course: 16:52 Patient arrived in ED. rg4 17:02 Triage completed. aj1 17:03 Arm band placed on Patient placed in an exam room. aj1 17:19 Initial lab(s) drawn, by me, sent to lab. T\T\S collected, blood band applied to patient. Missed attempt(s): 20 gauge in left forearm. Bleeding controlled, band aid applied, catheter tip intact. 17:23 Marah Hussein FNP-C is [facility]. snw 17:23 Ke Hardwick MD is Attending Physician. snw 17:35 Stacey Murillo MD is Attending Physician. ma2 17:50 Lety Kelley, SVITLANA is Primary Nurse. rb1 17:50 Inserted saline lock: 22 gauge in left forearm, using aseptic technique. 5 17:51 Patient has correct armband on for positive identification. Bed in low position. Call [facility] light in reach. Side rails up X 1. Warm blanket given. Pulse ox on. NIBP on. 19:00 No provider procedures requiring assistance completed. IV discontinued, intact, rb1 bleeding controlled, No redness/swelling at site. Pressure dressing applied. Administered Medications: No medications were administered Outcome: 18:20 Discharge ordered by . ma2 19:00 Discharged to home ambulatory, with walker rb1 19:00 Condition: stable 19:00 Discharge instructions given to patient, Instructed on discharge instructions, follow up and referral plans. Demonstrated understanding of instructions, follow-up care, Prescriptions given X none 19:00 Patient left the ED. rb1 Signatures: Shalonda Hollins, Erin White RN, ch, RN RN aj Marah Hussein FNP-C FNP-Patricia Ramirez RN RN Lety Kelley, SVITLANA SHANE rb1 Shauna Duque 4 Sirena Claire [facility] Stacey Murillo MD MD [facility] Corrections: (The following items were deleted from the chart) 18:15 17:30 Reassessment: Dr. Riojas has been paged as Dr. oLve is not accepting calls after ss hours. Awaiting call back ss
--- NOTE | 2019-01-31 18:21 | EDPHYS ---
Physician Documentation [facility] Name: Allen Doe Age: 63 yrs Sex: Male : 1955 Arrival Date: 01/31/2019 Time: 16:52 Bed 15 Private MD: ED Physician Stacey Murillo HPI: 01/31 18:18 This 63 yrs old Black Male presents to ER via Ambulatory with complaints of Blood ma2 Transfusion. 18:18 Onset: The symptoms/episode began/occurred gradually, 2 day(s) ago. Current symptoms: ma2 none. Treatment Prior to Arrival: none. The patient has experienced similar episodes in the past. send here by dr. brock for pRBC transfusion . Historical: - Allergies: 17:03 cefepime; aj1 - Home Meds: 17:03 clonidine HCl 0.1 mg Oral tab 1 tab 3 times per day [Active]; Coreg Oral BID [Active]; aj1 - PMHx: 17:03 Bronchitis; Diabetes - IDDM; Dialysis; ESRD; Hypertension; aj1 - Immunization history:: Flu vaccine is up to date. - Social history:: Smoking status: Patient/guardian denies using tobacco, Patient/guardian denies using alcohol, street drugs, The patient lives with family. - Ebola Screening: : Patient denies travel to an Ebola-affected area in the 21 days before illness onset. - Family history:: not pertinent. ROS: 18:18 Constitutional: Negative for fever, chills, and weight loss, Cardiovascular: Negative ma2 for chest pain, palpitations, and edema, Respiratory: Negative for shortness of breath, cough, wheezing, and pleuritic chest pain, Abdomen/GI: Negative for abdominal pain, nausea, diarrhea, and constipation. 18:18 All other systems are negative. Exam: 18:18 Constitutional: This is a well developed, well nourished patient who is awake, alert, ma2 and in no acute distress. Chest/axilla: Normal chest wall appearance and motion. Nontender with no deformity. No lesions are appreciated. Cardiovascular: Regular rate and rhythm with a normal S1 and S2. No gallops, murmurs, or rubs. Normal PMI, no JVD. No pulse deficits. Abdomen/GI: Soft, non-tender, with normal bowel sounds. No distension or tympany. No guarding or rebound. No evidence of tenderness throughout. Vital Signs: 17:03 BP 128 / 60; Pulse 63; Resp 18; Temp 97.0(TE); Pulse Ox 100% on R/A; Weight 53.52 kg aj1 (R); Height 5 ft. 9 in. (175.26 cm) (R); Pain 0/10; 18:00 BP 127 / 61; Pulse 65; Resp 17; Temp 97.6(TE); Pulse Ox 100% ; Pain 0/10; rb1 18:56 BP 128 / 63; Pulse 67; Resp 19; Temp 97.9(O); Pulse Ox 100% on R/A; Pain 0/10; rb1 17:03 Body Mass Index 17.43 (53.52 kg, 175.26 cm) aj1 MDM: 17:36 Patient medically screened. ma2 18:18 Data reviewed: vital signs, nurses notes. Counseling: I had a detailed discussion with ma2 the patient and/or guardian regarding: the historical points, exam findings, and any diagnostic results supporting the discharge/admit diagnosis, the presence of at least one elevated blood pressure reading (>120/80) during this emergency department visit, the need for outpatient follow up, HB is 9 no symptoms . 01/31 17:10 Order name: CBC with Diff; Complete Time: 18:09 01/31 17:10 Order name: Type And Screen; Complete Time: 18:09 01/31 17:24 Order name: Chem 7 snw 01/31 17:24 Order name: SL; Complete Time: 18:38 snw Administered Medications: No medications were administered Disposition: 01/31/19 18:20 Discharged to Home. Impression: Anemia in chronic kidney disease. - Condition is Stable. - Discharge Instructions: Anemia, Nonspecific. - Medication Reconciliation Form, Thank You Letter, Antibiotic Education, Prescription Opioid Use form. - Follow up: Private Physician; When: Tomorrow; Reason: Continuance of care. Signatures: Dispatcher [employer] EDErin Alexander RN RN aj1 Marah Hussein, [employer]-C [employer] Lety Kelley RN RN rb1 Stacey Murillo MD MD ma2 Corrections: (The following items were deleted from the chart) 19:00 18:20 01/31/2019 18:20 Discharged to Home. Impression: Anemia in chronic kidney rb1 disease. Condition is Stable. Forms are Medication Reconciliation Form, Thank You Letter, Antibiotic Education, Prescription Opioid Use. Follow up: Private Physician; When: Tomorrow; Reason: Continuance of care. ma2
[2019-01-31 19:29] VITALS: O2SAT 100
[2019-01-31 19:32] VITALS: BP 128/63; TEMP 97.9
== END 2019-01-31 19:00 | disposition home or self-care (01) ==
LOC: ER 16:48
DX: E11.22 Type 2 diabetes mellitus with diabetic chronic kidney disease (principal); I12.0 Hypertensive chronic kidney disease with stage 5 chronic kidney disease or end stage renal disease; N18.6 End stage renal disease; D63.1 Anemia in chronic kidney disease; Z99.2 Dependence on renal dialysis; Z79.4 Long term (current) use of insulin
CPT/HCPCS: 36415; 80048; 85025; 86850; 86900; 86901; 99284

== ENCOUNTER 2019-03-01 17:34 | Emergency (ER) | payer OTHER ==
--- OUTSIDE RECORDS SUMMARY | 2019-03-01 17:43 | XMS REPORT | Clinical Summary ---
:1955 Author Organization [facility] Address [address] [place] [address] Care Team Providers Name Role Phone Asked, No Pcp Primary Care Provider Unavailable Allergies Active Allergy Reactions Severity Noted Date Comments Cefepime Shortness Of Breath, Other (See High 12/14/2017 hypotension Comments) Medications Medication Sig Dispensed Refills Start Date End Date Status acetaminophen 325 Take 2 capsules 0 Active mg capsule by mouth as needed. B complex with Take by mouth 0 Active C#20-folic acid 1 daily. mg capsule citalopram Take 20 mg by 0 Active (CeleXA) 20 MG mouth daily. tablet clonIDINE Take 0.1 mg by 0 Active (CATAPRES) 0.1 MG mouth as needed tablet for high blood pressure. gabapentin Take 100 mg by 0 Active (NEURONTIN) 100 mg mouth 3 (three) capsule times a day. hydrALAZINE Take 100 mg by 0 Active (APRESOLINE) 100 mouth 2 (two) MG tablet times a day. lactulose 20 Take 10 g by 0 Active gram/30 mL mouth as needed. solution lisinopril Take 20 mg by 0 Active (PRINIVIL,ZESTRIL) mouth daily. 20 mg tablet NIFEdipine CC Take 60 mg by 0 Active (ADALAT CC) 60 MG mouth daily. 24 hr tablet pantoprazole Take 40 mg by 0 Active (PROTONIX) 40 MG mouth daily. EC tablet ipratropium-albute Take 3 mL by 0 Active rol (DUO-NEB) nebulization as 0.5-2.5 mg/mL needed for nebulizer wheezing. acetaminophen Take 2 tablets 0 03/09/2018 04/08/20 (TYLENOL) 325 MG (650 mg total) by 18 tablet mouth every 6 (six) hours as needed for fever for up to 30 days. B complex-vitamin Take 1 tablet by 30 tablet 0 03/10/2018 04/09/20 C-folic acid mouth daily for 18 (FOLBEE PLUS 5 MG) 30 days. 5 mg tablet per tablet carvedilol (COREG) Take 1 tablet (25 60 tablet 0 03/09/2018 04/08/20 25 MG tablet mg total) by 18 mouth 2 (two) times a day for 30 days. citalopram Take 1 tablet (20 30 tablet 0 03/10/2018 04/09/20 (CeleXA) 20 MG mg total) by 18 tablet mouth every morning for 30 days. clonIDINE Take 1 tablet 0 03/09/2018 04/08/20 (CATAPRES) 0.1 MG (0.1 mg total) by 18 tablet mouth every 4 (four) hours as needed for high blood pressure (PRN SBP > 170) for up to 30 days. clonIDINE Take 1 tablet 90 tablet 0 03/09/2018 03/23/20 Discontinued (CATAPRES) 0.2 MG (0.2 mg total) by 18 tablet mouth 3 (three) times a day for 30 days. gabapentin Take 1 capsule 90 capsule 0 03/09/2018 04/08/20 (NEURONTIN) 100 mg (100 mg total) by 18 capsule mouth 3 (three) times a day for 30 days. hydrALAZINE Take 1 tablet 90 tablet 0 03/09/2018 04/08/20 (APRESOLINE) 100 (100 mg total) by 18 MG tablet mouth 3 (three) times a day for 30 days. insulin lispro Inject 0-7 Units 10 mL 12 03/09/2018 04/08/20 (HumaLOG) 100 under the skin 3 18 unit/mL injection (three) times a day with meals for 30 days. ipratropium-albute Take 3 mL by 0 03/09/2018 04/08/20 rol (DUO-NEB) nebulization 18 0.5-2.5 mg/mL every 6 (six) nebulizer hours as needed for wheezing for up to 30 days. lactulose 20 Take 30 mL (20 g 0 03/09/2018 04/08/20 gram/30 mL total) by mouth 4 18 solution (four) times a day as needed (constipation) for up to 30 days. levothyroxine Take 1 tablet (50 30 tablet 0 03/10/2018 04/09/20 (SYNTHROID, mcg total) by 18 LEVOXYL) 50 mcg mouth daily for tablet 30 days. lisinopril Take 1 tablet (20 30 tablet 0 03/10/2018 04/09/20 (PRINIVIL,ZESTRIL) mg total) by 18 20 mg tablet mouth daily for 30 days. NIFEdipine XL Take 1 tablet (60 60 tablet 0 03/09/2018 04/08/20 (PROCARDIA XL) 60 mg total) by 18 MG 24 hr tablet mouth 2 (two) times a day for 30 days. pantoprazole Take 1 tablet (40 30 tablet 0 03/10/2018 04/09/20 (PROTONIX) 40 MG mg total) by 18 EC tablet mouth daily for 30 days. povidone-iodine Apply topically 0 03/10/2018 04/09/20 (BETADINE) 10 % daily for 30 18 external solution days. sulfamethoxazole-t Take 1 tablet by 0 03/09/2018 03/23/20 Discontinued rimethoprim mouth every 12 18 (BACTRIM SS) (twelve) hours 400-80 mg per for 13 days. tablet temazepam Take 1 capsule 0 03/09/2018 04/08/20 (RESTORIL) 15 mg (15 mg total) by 18 capsule mouth nightly as needed for sleep for up to 30 days. sulfamethoxazole-t Take 1 tablet by 20 tablet 0 03/23/2018 04/02/20 rimethoprim mouth every 12 18 (BACTRIM SS) (twelve) hours 400-80 mg per for 10 days. tablet clonIDINE HCl Take 1 tablet 90 tablet 0 03/23/2018 04/22/20 (CATAPRES) 0.2 MG (0.2 mg total) by 18 tablet mouth 3 (three) times a day for 30 days. carvedilol (COREG) Take 25 mg by 0 04/18/20 Discontinued 25 MG tablet mouth 2 (two) 18 times a day with meals. levothyroxine Take 100 mcg by 0 04/18/20 Discontinued (SYNTHROID, mouth daily. 18 LEVOXYL) 100 mcg tablet carvedilol (COREG) Take 1 tablet (25 60 tablet 0 04/18/2018 05/18/20 25 MG tablet mg total) by 18 mouth 2 (two) times a day with meals for 30 days. benzonatate Take 1 capsule 10 capsule 0 04/18/2018 05/18/20 (TESSALON) 100 MG (100 mg total) by 18 capsule mouth 3 (three) times a day as needed for cough for up to 30 days. docusate sodium Take 1 capsule 60 capsule 0 04/18/2018 05/18/20 (COLACE) 100 MG (100 mg total) by 18 capsule mouth 2 (two) times a day for 30 days. levothyroxine Take 1 tablet 30 tablet 0 04/19/2018 05/19/20 (SYNTHROID, (112 mcg total) 18 LEVOXYL) 112 mcg by mouth daily [...] (Primary Dx); 04/18/2018 MD Марина Gangrene; Leroy Espinal ESRD (end stage renal disease) on dialysis 03/21/2018 - Emergency Cardiology Israel Ann SOB (shortness of breath) ( Primary Dx); 03/23/2018 MD Ghulam Acute angina; Leroy Espinal, Cough; ESRD (end stage renal disease); Weakness generalized; Essential hypertension 03/04/2018 Surgery Orthopedic Surgery Ranjit Mireles LEFT FOOT H., DPM TRANSMETATARSAL AMPUTATION 03/04/2018 Anesthesia Event Orthopedic Surgery Arlyn Hernandez MD 02/28/2018 - Hospital Encounter General Internal PatySusanna, Pleural effusion (Primary Dx); 03/09/2018 Medicine ESRD on hemodialysis; Jhony Bass, Acute respiratory distress; Dry gangrene after 02/28/2018 Immunizations Name Dates Previously Given Next Due [...] VACCINE 03/09/2019 04/18/2018 Implants Implanted Type Area Die Mechanic Device Shelf Model / Identifier Expiration Serial / Date Lot Device Vasclr Clsr Baln Cath 10ml Lkng Syr 5fr [employer] Mynx[employer] - [id number] Cardiovascular N/A: ACCESS CLOSURE 06/08/2019 [id number] / Implanted: 11/17/2017 (Quantity not on file) Implants N/A INC / [id number] Catheter Angio Oracle Database Consultant Ii 5fr 0.038in 65cm Hf Contra-L - [id number] Surgical N /A: BSC PERIPHERAL [id number] / Implanted: 11/16/2017 (Quantity not on file) Implants; N/A INTERVENTION / Expanders; VASCULAR ROBB Extenders; Surgical Wires Catheter Angio Oracle Database Consultant Ii 5fr 0.038in 65cm Hf Contra-L - [id number] Surgical N /A: [facility] PERIPHERAL [id number] / Implanted: 11/17/2017 (Quantity not on file) Implants; N/A INTERVENTION / Expanders; VASCULAR ROBB Extenders; Surgical Wires Catheter [place] 2.3fr [place] [id number] [id number] / Implanted: Qty: 2 on 11/17/2017 by Venita Simental MD / Catheter Ad Setter Raymon Sl Otw 4fr 150cm 2.5x80mm Lpr HENNING [id number] / Implanted: Qty: 1 on 11/17/2017 by Venita Simental MD SCIENTIFIC/DYLAN / PHERAL VASCULAR (MEDI-TECH) Catheter Ad Setter Otw 4fr 150cm [id number] Anthony [place] [id number] / Implanted: Qty: 1 on 11/17/2017 by Venita Simental MD SCIENTIFIC/DYLAN / PHERAL VASCULAR (MEDI-TECH) Catheter Sup Seekes 4fr 150cm Xng W/0.014in Gw BARD PERIPHERAL [id number] / Implanted: Qty: 1 on 11/17/2017 by [...] the procedure well with no immediate complications AL AN ELECTIVE ENDOTRACHEAL AIRWAY Routine 04/13/2018 12:34 [...] 12-LEAD STAT 02/28/2018 3:10 PM CDT after 02/28/2018 Results CBC with platelet and differential (04/17/2018 5:20 AM CDT)Only the most recent of10 resultswithin the time period is included. WBC 6.53 4.50 - 11.00 [facility] DEPARTMENT OF k/uL PATHOLOGY AND GENOMIC MEDICINE RBC 3.36 (L) 4.40 - 6.00 [facility] DEPARTMENT OF m/ PATHOLOGY AND GENOMIC MEDICINE HGB 8.4 (L) 14.0 - 18.0 [facility] DEPARTMENT OF g/dL PATHOLOGY AND GENOMIC MEDICINE HCT 26.6 (L) 41.0 - 51.0 % [facility] DEPARTMENT OF PATHOLOGY AND GENOMIC MEDICINE MCV 79.2 (L) 82.0 - 100.0 [facility] DEPARTMENT OF [place] PATHOLOGY AND GENOMIC MEDICINE MCH 25.0 (L) 27.0 - 34.0 [facility] DEPARTMENT OF PATHOLOGY AND GENOMIC MEDICINE MCHC 31.6 31.0 - 37.0 [facility] DEPARTMENT OF g/dL PATHOLOGY AND GENOMIC MEDICINE RDW - SD 56.1 (H) 37.0 - 55.0 [facility] DEPARTMENT OF [place] PATHOLOGY AND GENOMIC MEDICINE MPV 10.1 8.8 - 13.2 [facility] DEPARTMENT OF PATHOLOGY AND GENOMIC MEDICINE Platelet count 288 150 - 400 [facility] DEPARTMENT OF k/uL PATHOLOGY AND GENOMIC MEDICINE Nucleated RBC 0.00 /100 WBC [facility] DEPARTMENT OF PATHOLOGY AND GENOMIC MEDICINE Neutrophils 70.4 (H) 39.0 - 69.0 % [facility] DEPARTMENT OF PATHOLOGY AND GENOMIC MEDICINE Lymphocytes 12.7 (L) 25.0 - 45.0 % [facility] DEPARTMENT OF PATHOLOGY AND GENOMIC MEDICINE Monocytes 12.1 (H) 0.0 - 10.0 % [facility] DEPARTMENT OF PATHOLOGY AND GENOMIC MEDICINE Eosinophils 4.0 0.0 - 5.0 % [facility] DEPARTMENT OF PATHOLOGY AND GENOMIC MEDICINE Basophils 0.6 0.0 - 1.0 % [facility] DEPARTMENT OF PATHOLOGY AND GENOMIC MEDICINE Immature granulocytes 0.2Comment: 0.0 - 1.0 % [facility] DEPARTMENT OF "Immature PATHOLOGY AND granulocytes" GENOMIC MEDICINE (promyelocytes , myelocytes, metamyelocytes ) Specimen Blood Performing Organization Address City/State/Zipcode Phone Number [facility] DEPARTMENT OF PATHOLOGY AND [address] [place] [address] GENOMIC MEDICINE POC glucose (04/16/2018 6:08 PM CDT)Only the most recent of55 resultswithin the time period is included. POC glucose 137 (H) 65 - 99 mg/dL [facility] DEPARTMENT OF Comment: PATHOLOGY AND [facility] Notified RN GENOMIC MEDICINE Meter ID: [id number] Pre K Teacher: Vargas Dadali Specimen Performing Organization Address City/[facility]/Zipcode Phone Number [facility] DEPARTMENT PATHOLOGY AND [address] [place] [phone] [employer] MEDICINE Estimated GFR (04/15/2018 4:00 AM CDT)Only the most recent of10 resultswithin the time period is included. [facility] GFR Non Af Amer 15 (A) mL/min/1.73 [facility] DEPARTMENT OF m2 PATHOLOGY AND GENOMIC MEDICINE GFR Af Amer 18 (A) mL/min/1.73 [facility] DEPARTMENT OF Comment: PATHOLOGY AND Chronic kidney disease: <60 mL/min/1.73m2 [...] Americans. Specimen Plasma specimen Performing Organization Address City/[facility]/Zipcode Phone Number [facility] PATHOLOGY AND [address] [place] [phone] [facility] [facility] Basic metabolic panel (04/15/2018 4:00 AM CDT)Only the most recent of7 resultswithin the time period is included. [facility] Signature Sodium 138 135 - 148 mEq/L [facility] DEPARTMENT OF PATHOLOGY AND GENOMIC MEDICINE Potassium 4.3 3.5 - 5.0 mEq/L [facility] DEPARTMENT OF PATHOLOGY AND GENOMIC MEDICINE Chloride 96 (L) 98 - 112 mEq/L [facility] DEPARTMENT OF PATHOLOGY AND GENOMIC MEDICINE CO2 30 24 - 31 mEq/L [facility] DEPARTMENT OF PATHOLOGY AND GENOMIC MEDICINE Anion gap 12@ANIO 7 - 15 mEq/L [facility] DEPARTMENT OF PATHOLOGY AND GENOMIC MEDICINE BUN 20 8 - 23 mg/dL [facility] DEPARTMENT OF PATHOLOGY AND GENOMIC MEDICINE Creatinine 4.1 (H) 0.7 - 1.2 mg/dL [facility] DEPARTMENT OF PATHOLOGY AND GENOMIC MEDICINE Glucose 117 (H) 65 - 99 mg/dL [facility] DEPARTMENT OF PATHOLOGY AND GENOMIC MEDICINE Calcium 7.8 (L) 8.8 - 10.2 mg/dL [facility] DEPARTMENT OF PATHOLOGY AND GENOMIC MEDICINE Specimen Plasma specimen Performing Organization Address [facility] Phone Number [facility] DEPARTMENT OF PATHOLOGY AND [address] [place] [phone] GENOMIC MEDICINE T3, free (04/14/2018 10:30 AM CDT) T3, free 1.2 (L) 2.4 - 4.2 pg/mL [facility] Comment: REFERENCE INTERVAL: Triiodothyronine, Free (Free T3) Access complete set of age- and/or gender-specific reference intervals for this test in the [facility] Test Directory ([email or web address]). Performed by [email or web address], [address] [place] [address] [email or web address], Emil Ingram MD - Lab. Director Specimen Serum Performing Organization Address [facility] Phone Number [facility] [address] [place] [address] T4, free (04/14/2018 10:14 AM CDT)Only the most recent of2 resultswithin the time period is included. T4, free 1.3 0.9 - 1.7 ng/dL [facility] DEPARTMENT OF PATHOLOGY AND GENOMIC MEDICINE Specimen Plasma specimen Performing Organization Address [facility] Phone Number [facility] DEPARTMENT OF PATHOLOGY AND [address] [place] [phone] [place] [address] Hepatitis B surface antigen (04/14/2018 7:39 AM CDT)Only the most recent of2 resultswithin the time period is included. Hepatitis B surface Non-reactive Non-reactive [facility] DEPARTMENT OF PATHOLOGY AND GENOMIC MEDICINE Specimen Blood Performing Organization Address [facility] Phone Number [facility] DEPARTMENT OF PATHOLOGY AND [address] [place] [phone] [place] [address] Thyroid stimulating hormone (04/13/2018 6:07 PM CDT)Only the most recent of2 resultswithin the time period is included. TSH 15.01 (H) 0.27 - 4.20 uIU/mL [facility] DEPARTMENT OF PATHOLOGY AND GENOMIC MEDICINE Specimen Plasma specimen Performing Organization Address City/[facility] Phone Number [facility] DEPARTMENT OF PATHOLOGY AND [address] [place] [address] GENOMIC MEDICINE Transfuse RBC (04/13/2018 5:57 PM CDT)Only the most recent of4 resultswithin the time period is included.Surgical pathology request (04/13/2018 2:41 PM CDT) Only the most recent of2 resultswithin the time period is included. [facility] DEPARTMENT OF PATHOLOGY AND GENOMIC MEDICINE Surgical pathology See link below [facility] DEPARTMENT OF report for PDF Lab PATHOLOGY AND Report GENOMIC MEDICINE Result status This is Final [facility] DEPARTMENT OF Report for PATHOLOGY AND [id number] GENOMIC MEDICINE Specimen Performing Organization Address [facility] Phone Number [facility] DEPARTMENT OF PATHOLOGY AND [address] [place] [address] GENOMIC MEDICINE Fungus smear (04/13/2018 1:37 PM CDT)Only the most recent of3 resultswithin the time period is included. Fungus smear No fungi observed. [facility] DEPARTMENT OF Comment: PATHOLOGY AND Specimen Information GENOMIC MEDICINE Specimen Source: Fluid Specimen Site: Leg, left Specimen Leg, left Performing Organization Address [facility] Phone Number [facility] DEPARTMENT OF PATHOLOGY AND [address] [place] [address] GENOMIC MEDICINE AFB culture (04/13/2018 1:37 PM CDT)Only the most recent of4 resultswithin the time period is included. AFB culture No growth after 6 weeks of incubation. [facility] DEPARTMENT OF isolate Comment: PATHOLOGY AND Specimen Information GENOMIC MEDICINE Specimen Source: Fluid Specimen Site: Leg, left Specimen Fluid - Leg, left Performing Organization Address City/[facility] Phone Number [facility] DEPARTMENT OF PATHOLOGY AND [address] [place] [address] GENOMIC MEDICINE Aerobic culture (04/13/2018 1:37 PM CDT)Only the most recent of5 resultswithin the time period is included. Aerobic culture No growth after 3 days. [facility] DEPARTMENT OF isolate Comment: PATHOLOGY AND Specimen Information GENOMIC MEDICINE Specimen Source: Fluid Specimen Site: Leg, left Specimen Fluid - Leg, left Performing Organization Address [facility] Phone Number [facility] DEPARTMENT OF PATHOLOGY AND [address] [place] [address] GENOMIC MEDICINE Gram stain (04/13/2018 1:37 PM CDT)Only the most recent of4 resultswithin the time period is included. Gram stain isolate No WBC's or organisms seen. [facility] DEPARTMENT OF Comment: PATHOLOGY AND Specimen Information GENOMIC MEDICINE Specimen Source: Fluid Specimen Site: Leg, left Specimen Leg, left Performing Organization Address [facility] Phone Number [facility] DEPARTMENT OF PATHOLOGY AND [address] [place] [address] MEDICINE AFB stain (04/13/2018 1:37 PM CDT)Only the most recent of3 resultswithin the time period is included. AFB stain No acid fast bacilli (AFB) seen. [facility] DEPARTMENT OF Comment: PATHOLOGY AND GENOMIC Specimen Information MEDICINE Specimen Source: Fluid Specimen Site: Leg, left Specimen Leg, left Performing Organization Address [facility] Phone Number [facility] DEPARTMENT OF PATHOLOGY AND [address] [place] [address] Fungus culture (04/13/2018 1:37 PM CDT)Only the most recent of4 resultswithin the time period is included. Fungus culture No growth after 4 weeks of incubation. [facility] DEPARTMENT OF isolate Comment: PATHOLOGY AND Specimen Information GENOMIC MEDICINE Specimen Source: Fluid Specimen Site: Leg, left Specimen Fluid - Leg, left Performing Organization Address [facility] Phone Number [facility] DEPARTMENT OF PATHOLOGY AND [address] [place] [address] Anaerobic culture (04/13/2018 1:37 PM CDT)Only the most recent of5 resultswithin the time period is included. Anaerobic culture No anaerobic organisms isolated. [facility] DEPARTMENT OF isolate Comment: PATHOLOGY AND Specimen Information GENOMIC MEDICINE Specimen Source: Fluid Specimen Site: Leg, left Specimen Leg, left Performing Organization Address [facility] Phone Number [facility] DEPARTMENT OF PATHOLOGY AND [address] [place] [address] Sodium level, syringe (04/13/2018 1:00 PM CDT) Sodium, syringe 131 (L) 135 - 148 mEq/L [facility] DEPARTMENT OF PATHOLOGY AND GENOMIC MEDICINE Specimen Blood Performing Organization Address [facility] Phone Number [facility] DEPARTMENT OF PATHOLOGY AND [address] [place] [address] Potassium, syringe (04/13/2018 1:00 PM CDT) Potassium, syringe 3.0 (LL)Comment: 3.5 - 5.0 [facility] DEPARTMENT OF Abg results mEq/L PATHOLOGY AND called read back [facility] MEDICINE by Shalonda CLARK RN 13:16 nt Specimen Blood Performing Organization Address City/[facility] Phone Number [facility] DEPARTMENT OF PATHOLOGY AND [address] [place] [address] MEDICINE Ionized calcium, arterial (04/13/2018 1:00 PM CDT) Ionized calcium, 0.92 (L) 1.11 - 1.32 [facility] DEPARTMENT OF arterial mmol/L PATHOLOGY AND GENOMIC MEDICINE Specimen Blood Performing Organization Address City/[facility] Phone Number [facility] DEPARTMENT OF PATHOLOGY AND [address] [place] [address] MEDICINE Hemoglobin, syringe (04/13/2018 1:00 PM CDT) Hemoglobin, syringe 9.8 (L) 14.0 - 18.0 g/dL [facility] DEPARTMENT OF PATHOLOGY AND GENOMIC MEDICINE Specimen Blood Performing Organization Address City/[facility] Phone Number [facility] DEPARTMENT OF PATHOLOGY AND [address] [place] [address] MEDICINE Glucose level, syringe (04/13/2018 1:00 PM CDT) Glucose, syringe 83 65 - 99 mg/dL [facility] DEPARTMENT OF PATHOLOGY AND GENOMIC MEDICINE Specimen Blood Performing Organization Address [facility] Phone Number [facility] DEPARTMENT OF PATHOLOGY AND [address] [place] [address] Arterial blood gas, corrected (04/13/2018 1:00 PM CDT) pH, arterial 7.54 (H) 7.35 - 7.45 [facility] DEPARTMENT OF PATHOLOGY AND GENOMIC MEDICINE pCO2, arterial 38 35 - 45 mmHg [facility] DEPARTMENT OF PATHOLOGY AND GENOMIC MEDICINE pO2, arterial 139 (H) 80 - 90 mmHg [facility] DEPARTMENT OF PATHOLOGY AND GENOMIC MEDICINE Temperature, Celsius 37.0 Degrees C [facility] DEPARTMENT OF PATHOLOGY AND GENOMIC MEDICINE O2 saturation, 100 95 - 100 % [facility] DEPARTMENT OF arterial PATHOLOGY AND GENOMIC MEDICINE pH, arterial 7.54 [facility] DEPARTMENT OF corrected PATHOLOGY AND GENOMIC MEDICINE pCO2, arterial 38 mmHg [facility] DEPARTMENT OF corrected PATHOLOGY AND GENOMIC MEDICINE pO2, arterial 139 mmHg [facility] DEPARTMENT OF corrected PATHOLOGY AND GENOMIC MEDICINE Base excess, 9 (H) -2 - 2 mEq/L [facility] DEPARTMENT OF arterial PATHOLOGY AND GENOMIC MEDICINE Specimen Blood Performing Organization Address City/[facility]/Zipcode Phone Number [facility] DEPARTMENT OF PATHOLOGY AND [address] [place] [address] GENOMIC MEDICINE CBC hemogram (04/13/2018 10:30 AM CDT) WBC 7.05 4.50 - 11.00 k/uL [facility] DEPARTMENT OF PATHOLOGY AND GENOMIC MEDICINE RBC 4.15 (L) 4.40 - 6.00 m/uL [facility] DEPARTMENT OF PATHOLOGY AND GENOMIC MEDICINE HGB 10.2 (L) 14.0 - 18.0 g/dL [facility] DEPARTMENT OF PATHOLOGY AND GENOMIC MEDICINE HCT 31.4 (L) 41.0 - 51.0 % [facility] DEPARTMENT OF PATHOLOGY AND GENOMIC MEDICINE MCV 75.7 (L) 82.0 - 100.0 fL [facility] DEPARTMENT OF PATHOLOGY AND GENOMIC MEDICINE MCH 24.6 (L) 27.0 - 34.0 pg [facility] DEPARTMENT OF PATHOLOGY AND GENOMIC MEDICINE MCHC 32.5 31.0 - 37.0 g/dL [facility] DEPARTMENT OF PATHOLOGY AND GENOMIC MEDICINE RDW - SD 50.6 37.0 - 55.0 fL [facility] DEPARTMENT OF PATHOLOGY AND GENOMIC MEDICINE MPV 10.1 8.8 - 13.2 fL [facility] DEPARTMENT OF PATHOLOGY AND GENOMIC MEDICINE Platelet count 294 150 - 400 k/uL [facility] DEPARTMENT OF PATHOLOGY AND GENOMIC MEDICINE Specimen Performing Organization Address City/[facility] Phone Number [facility] DEPARTMENT OF PATHOLOGY AND [address] [place], [place] [phone] GENOMIC MEDICINE Type and screen (04/13/2018 10:30 AM CDT)Only the most recent of3 resultswithin the time period is included. ABO grouping O [facility] DEPARTMENT OF PATHOLOGY AND GENOMIC MEDICINE Rh type POS [facility] DEPARTMENT OF PATHOLOGY AND GENOMIC MEDICINE Antibody screen (gel) NEG [facility] DEPARTMENT OF PATHOLOGY AND GENOMIC MEDICINE Specimen Performing Organization Address City/[facility]/Zipcode Phone Number [facility] DEPARTMENT OF PATHOLOGY AND [address] [place] [phone] GENOMIC MEDICINE Comprehensive metabolic panel (04/13/2018 10:30 AM CDT)Only the most recent of3 resultswithin the time period is included. Sodium 134 (L) 135 - 148 [facility] DEPARTMENT OF mEq/L PATHOLOGY AND GENOMIC MEDICINE Potassium 3.2 (L) 3.5 - 5.0 [facility] DEPARTMENT OF mEq/L PATHOLOGY AND GENOMIC MEDICINE Chloride 96 (L) 98 - 112 mEq/L [facility] DEPARTMENT OF PATHOLOGY AND GENOMIC MEDICINE CO2 33 (H) 24 - 31 mEq/L [facility] DEPARTMENT OF PATHOLOGY AND GENOMIC MEDICINE Anion gap 5@ANIO (L) 7 - 15 mEq/L [facility] DEPARTMENT OF PATHOLOGY AND GENOMIC MEDICINE BUN 21 8 - 23 mg/dL [facility] DEPARTMENT OF PATHOLOGY AND GENOMIC MEDICINE Creatinine 4.5 (H) 0.7 - 1.2 [facility] DEPARTMENT OF mg/dL PATHOLOGY AND GENOMIC MEDICINE Glucose 86 65 - 99 mg/dL [facility] DEPARTMENT OF PATHOLOGY AND GENOMIC MEDICINE Calcium 8.0 (L) 8.8 - 10.2 [facility] DEPARTMENT OF mg/dL PATHOLOGY AND GENOMIC MEDICINE Protein 6.0 (L) 6.3 - 8.3 g/dL [facility] DEPARTMENT OF Comment: PATHOLOGY AND 4.6-7.0 g/dL GENOMIC MEDICINE 1 week 4.4-7.6 g/dL 7 months-1year5.1-7.3 g/dL 1-2 years5.6-7.5 g/dL >3 years6.0-8.0 g/dL 18-150 6.3-8.3 g/dL Albumin 2.6 (L) 3.5 - 5.0 g/dL [facility] DEPARTMENT OF PATHOLOGY AND GENOMIC MEDICINE A/G ratio 0.8 0.7 - 3.8 [facility] DEPARTMENT OF PATHOLOGY AND GENOMIC MEDICINE Alkaline phosphatase 223 (H) 40 - 129 U/L [facility] DEPARTMENT OF PATHOLOGY AND GENOMIC MEDICINE AST 16 10 - 50 U/L [facility] DEPARTMENT OF PATHOLOGY AND GENOMIC MEDICINE ALT 9 5 - 50 U/L [facility] DEPARTMENT OF PATHOLOGY AND GENOMIC MEDICINE Total bilirubin 0.2 0.0 - 1.2 [facility] DEPARTMENT OF mg/dL PATHOLOGY AND GENOMIC MEDICINE Specimen Plasma specimen Performing Organization Address City/State/Zipcode Phone Number [facility] DEPARTMENT OF PATHOLOGY AND [address] [place] [address] [employer] MEDICINE Respiratory pathogen panel (03/22/2018 9:35 PM CDT) Pathologist [facility] Respiratory Negative for all pathogens tested: [facility] DEPARTMENT OF pathogen panel Negative for Adenovirus [...] Required Performing Organization Address City/State/Zipcode Phone Number [facility] DEPARTMENT OF PATHOLOGY AND [address] [place] [address] GENOMIC MEDICINE Hemodialysis (03/22/2018 5:13 PM CDT) Narrative Performed At Amaury Hayden Jr., MD 03/22/20185:14 PM Roula York MD PhD MD MELODY Silverman MD Juan Olivero Sr, MD Joi Link Jr, ROSAPRachel Damon, AGACNPCarol Hernandez, AGACNPANTHONY [facility] Procedure Note Indication: ESRD Revaclear 300 x 4 hours UF as tolerated Na 140 K 3 HCO3 35 Ca 2.5 Qb 350 cc/min Anticoagulation: saline flushes only Amaury Hayden M.D. [facility] [phone] ECG 12 lead (03/22/2018 5:42 AM CDT)Only the most recent of3 resultswithin the time period is included. Ventricular rate 67 [facility] Atrial rate 67 [facility] AL interval 142 [facility] QRSD interval 76 [facility] QT interval 462 [facility] QTC interval 488 [facility] P axis 1 50 [facility] QRS axis 1 -3 [facility] T wave axis 8 [facility] EKG impression Normal sinus rhythm-Low [facility] MUSE voltage QRS-Prolonged QT-Abnormal ECG-In automated comparison with ECG of 21-MAR-2018 22:03,-No significant change was found- Specimen Performing Organization Address City/[facility]/Zipcode Phone Number [facility] MUSE [address] [place] [address] Troponin (03/22/2018 12:15 AM CDT)Only the most recent of3 resultswithin the time period is included. Troponin <0.30 0.00 - 0.30 [facility] DEPARTMENT OF Comment: ng/mL PATHOLOGY AND 0.30 - 1.49 ng/mlMay indicate increased risk of acute GENOMIC MEDICINE coronary syndrome. >=1.5 ng/mlConsistent with acute myocardial infarction. The diagnostic value of a single normal or non-diagnostic result is questionable.Serial samples at 2-6 hour intervals are required to rule out acute myocardial injury. Specimen Plasma specimen Performing Organization Address City/[facility] Phone Number [facility] DEPARTMENT OF PATHOLOGY AND [address] [place] [address] Abdomen Pelvis Wo Contrast [...] Moderate amount of stool in the colon. [facility]-[id number] Procedure Note Interface, Radiology Results Incoming - [...] Moderate amount of stool in the colon. [facility]-[id number] Performing Organization Address City/State/Zipcode Phone Number [facility] [address] [place] [phone] Partial thromboplastin time, activated (03/21/2018 8:52 PM CDT)Only the most recent of2 resultswithin the time period is included. PTT 39.2 (H) 23.0 - 36.0 [facility] DEPARTMENT OF Comment: sec PATHOLOGY AND PTT therapeutic range for unfractionated heparin is [facility] MEDICINE 61.0-112.0 seconds which corresponds to Anti-Xa 0.3-0.7 U/ml. Specimen Blood Performing Organization Address City/[facility] Cent[facility]ode Phone Number [facility] DEPARTMENT OF PATHOLOGY AND [address] [place] [phone] [place] [address] Prothrombin time with INR (03/21/2018 8:52 PM CDT)Only the most recent of2 resultswithin the time period is included. Pathologist [facility] Prothrombin time 15.8 (H) 12.0 - 15.0 [facility] DEPARTMENT OF sec PATHOLOGY AND GENOMIC MEDICINE INR 1.2 [facility] DEPARTMENT OF Comment: PATHOLOGY AND The International Normalized Ratio (INR) is a therapeutic GENOMIC MEDICINE monitoring tool for patients who are stable on oral anticoagulant therapy. An INR of 2.0-3.0 is suggested for deep vein thrombosis/pulmonary embolism. Specimen Blood Performing Organization Address [facility] Centercoor Phone Number [facility] DEPARTMENT OF PATHOLOGY AND [address] [place], [place] [phone] [facility] B natriuretic peptide (03/21/2018 8:52 PM CDT)Only the most recent of2 resultswithin the time period is included. BNP 940 (H) 0 - 100 pg/mL [facility] DEPARTMENT OF PATHOLOGY AND GENOMIC MEDICINE Specimen Blood Performing Organization Address City/[facility] Centercode Phone Number [facility] DEPARTMENT OF PATHOLOGY AND [address] [place] [address] [facility] MEDICINE Lipase level (03/21/2018 8:52 PM CDT) Lipase 18 13 - 60 U/L [facility] DEPARTMENT OF PATHOLOGY AND GENOMIC MEDICINE Specimen Plasma specimen Performing Organization Address City/[facility] Centercode Phone Number [facility] DEPARTMENT OF PATHOLOGY AND [address] [place] [address] [facility] XR Chest 2 Vw (03/21/2018 8:46 PM CDT)Only the most recent of2 resultswithin the time period is included. Specimen Narrative Performed At EXAMINATION:XR CHEST 2 VW [facility] CLINICAL HISTORY:Coughnew onset, Shortness of breath COMPARISON:March 02, 2018 IMPRESSION: Moderate bilateral pleural effusions, increased from prior. There is cardiomegaly and pulmonary vascular congestion. [facility]-[id number] Procedure Note Hm Interface, Radiology Results Incoming - 03/21/2018 10:12 PM CDT EXAMINATION: XR CHEST 2 VW CLINICAL HISTORY: Cough new onset, Shortness of breath COMPARISON: March 02, 2018 IMPRESSION: Moderate bilateral pleural effusions, increased from prior. There is cardiomegaly and pulmonary vascular congestion. [facility]-[id number] Performing Organization Address City/[facility]/Zipcode Phone Number [facility] [address] [place] [address] Prepare RBC, 2 Units (03/08/2018 9:00 AM CDT) Product name Red Cells AS1 [facility] DEPARTMENT OF Leukored Irrad PATHOLOGY AND GENOMIC MEDICINE Unit number [id number] [facility] DEPARTMENT OF PATHOLOGY AND GENOMIC MEDICINE Product code [id number] [facility] DEPARTMENT OF PATHOLOGY AND GENOMIC MEDICINE Dispense status Transfused [facility] DE[facility]MENT OF PATHOLOGY AND GENOMIC MEDICINE Blood expiration [id number] [facility] DEPARTMENT OF date PATHOLOGY AND GENOMIC MEDICINE Blood type code 5100 [facility] DEPARTMENT OF PATHOLOGY AND GENOMIC MEDICINE Blood type O POSITIVE [facility] DEPARTMENT OF PATHOLOGY AND GENOMIC MEDICINE Product name Red Cells AS1 [facility] DEPARTMENT OF Leukored Irrad PATHOLOGY AND GENOMIC MEDICINE Unit number [id number] [facility] DEPARTMENT OF PATHOLOGY AND GENOMIC MEDICINE Product code [id number] [facility] DEPARTMENT OF PATHOLOGY AND GENOMIC MEDICINE Dispense status Transfused [facility] DE[facility]MENT OF PATHOLOGY AND GENOMIC MEDICINE Blood expiration [id number] [facility] DEPARTMENT OF date PATHOLOGY AND GENOMIC MEDICINE Blood type code 5100 [facility] DEPARTMENT OF PATHOLOGY AND GENOMIC MEDICINE Blood type O POSITIVE [facility] DEPARTMENT OF PATHOLOGY AND GENOMIC MEDICINE Specimen Performing Organization Address City/State/Zipcode Phone Number [facility] DEPARTMENT OF PATHOLOGY AND [address] [place] [address] GENOMIC MEDICINE Smear review (03/08/2018 7:45 AM CDT) Platelet slide review Teresa adequate [facility] DEPARTMENT OF PATHOLOGY AND GENOMIC MEDICINE Anisocytosis Moderate [facility] DEPARTMENT OF PATHOLOGY AND GENOMIC MEDICINE Tear drop cells Occasional [facility] DEPARTMENT OF PATHOLOGY AND GENOMIC MEDICINE Schistocytes Moderate (A) [facility] DEPARTMENT OF PATHOLOGY AND GENOMIC MEDICINE Ovalocytes Moderate [facility] DEPARTMENT OF PATHOLOGY AND GENOMIC MEDICINE Specimen Performing Organization Address City/[facility]/Zipcode Phone Number [facility] DEPARTMENT OF PATHOLOGY AND [address] [place] [address] GENOMIC MEDICINE XR Foot 3+ Vw Left (03/04/2018 2:59 PM CDT)Only the most recent of2 resultswithin the time period is included. Specimen Narrative Performed At EXAMINATION:XR FOOT 3VW LEFT [facility] CLINICAL HISTORY:status-post amputation COMPARISON:None. IMPRESSION: Extensive vascular calcifications are present. 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 No bone destruction is identified. [facility]-[id number] Procedure Note Hm Interface, Radiology Results Incoming - 03/04/2018 3:09 PM CDT EXAMINATION: XR FOOT 3 VW LEFT CLINICAL HISTORY: status-post amputation COMPARISON: None. IMPRESSION: Extensive vascular calcifications are present. 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 No bone destruction is identified. [facility]-[id number] Performing Organization Address [facility] Centercode Phone Number [facility] [address] [place] [address] MRI Foot Wo Contrast Left (03/03/2018 9:39 [...] participate in the care of your patient [facility]-[id number] Procedure Note Hm Interface, Radiology Results Incoming [...] participate in the care of your patient [facility]-[id number] Performing Organization Address City/State/Zipcode Phone Number [facility] [address] [place] [address] CT Lower Extremity Wo Contrast Left (03/02/2018 [...] or cellulitis. 5.Extensive vascular calcifications. Diffuse osteopenia. [facility]-[id number] Procedure Note Interface, Radiology Results Incoming - [...] cellulitis. 5. Extensive vascular calcifications. Diffuse osteopenia. [facility]-[id number] Performing Organization Address City/State/Zipcode Phone Number [facility] [address] [place] [address] XR Chest 1 Vw (03/02/2018 4:27 PM CDT) Specimen Narrative Performed At EXAM: [facility] XR CHEST 1 VW INDICATION: Post Thoracentesis [...] thoracic aorta. Minimal degenerative changes thoracic spine. [facility]-[id number] Procedure Note Interface, Radiology Results Incoming - [...] thoracic aorta. Minimal degenerative changes thoracic spine. [facility]-[id number] Performing Organization Address City/State/Zipcode Phone Number [facility] [address] [place] [address] XR Foot 3+ Vw Right (03/02/2018 4:26 PM CDT) Specimen Narrative Performed At EXAMINATION:XR FOOT 3VW RIGHT [facility] CLINICAL HISTORY:Osteomyelitis suspectedfoot swellingdiabetic TECHNIQUE: 3 views of the right foot obtained. COMPARISON:12/04/2017 IMPRESSION: Forefoot amputation through the metatarsal shafts. The skin jroje and drains have been removed in interval. Soft tissue swelling of the stomach most pronounced over the first metatarsal, with subtle periosteal reaction at the distal end of the remnant first metatarsal, may indicate osteomyelitis. Remaining visualized bones appear well-maintained. Extensive atherosclerotic calcification. Pes planus. Mild to moderate degenerative changes throughout the midfoot. [facility]-[id number] Procedure Note Interface, Radiology Results Incoming - [...] to moderate degenerative changes throughout the midfoot. [facility]-[id number] Performing Organization Address City/State/Zipcode Phone Number [facility] [address] [place] [address] [place] Thoracentesis With Imaging (03/02/2018 3:59 PM CDT) Specimen Narrative Performed At EXAMINATION:US THORACENTESIS WITH IMAGING [facility] CLINICAL HISTORY:left pleural effusionesrd COMPARISON:None. TECHNIQUE: The [...] sterile barrier technique were followed. A 5 [place] Ze[place]ander Yueh catheter was inserted into the pleural [...] removal of 750 mL of pleural fluid. [facility]-[id number] Procedure Note Interface, Radiology Results Incoming - [...] sterile barrier technique were followed. A 5 [place] Yueh catheter was inserted into the pleural [...] removal of 750 mL of pleural fluid. [facility]-[id number] Performing Organization Address City/State/Zipcode Phone Number [facility] [address] [place] [address] Cell count and differential, body fluid (03/02/2018 3:31 PM CDT) Misc fluid type Pleural [facility] DEPARTMENT OF PATHOLOGY AND GENOMIC MEDICINE Color, fluid Colorless [facility] DEPARTMENT OF PATHOLOGY AND GENOMIC MEDICINE Appearance, fluid Clear [facility] DEPARTMENT OF PATHOLOGY AND GENOMIC MEDICINE RBC, fluid SEE /CMM [facility] DEPARTMENT OF COMMENTComment: 1+ PATHOLOGY AND (0 - 500 RBC/CMM) GENOMIC MEDICINE Nucleated cells, 167 /CMM [facility] DEPARTMENT OF fluid PATHOLOGY AND GENOMIC MEDICINE Fluid mononuclear See Diff [facility] DEPARTMENT OF cell PATHOLOGY AND GENOMIC MEDICINE Neutrophils, fluid 11 % [facility] DEPARTMENT OF PATHOLOGY AND GENOMIC MEDICINE Lymphocytes, fluid 5 % [facility] DEPARTMENT OF PATHOLOGY AND GENOMIC MEDICINE Mesothelial cells, 1 % [facility] DEPARTMENT OF fluid PATHOLOGY AND GENOMIC MEDICINE Macrophages, fluid 83 % [facility] DEPARTMENT OF PATHOLOGY AND GENOMIC MEDICINE Specimen Fluid Performing Organization Address [facility] Phone Number [facility] DEPARTMENT OF PATHOLOGY AND [address] [place] [address] GENOMIC MEDICINE Protein, misc fluid (03/02/2018 3:31 PM CDT) Fluid type Pleural [facility] DEPARTMENT OF PATHOLOGY AND GENOMIC MEDICINE Protein, fluid 1.7 g/dL [facility] DEPARTMENT OF Comment: PATHOLOGY AND Analysis performed on Harman 8000 analyzer. This is not an GENOMIC MEDICINE approved methodology for this specimen type;accuracy and clinical significance uncertain. Specimen Fluid Performing Organization Address City/[facility] Phone Number [facility] DEPARTMENT OF PATHOLOGY AND [address] [place] [address] GENOMIC MEDICINE LDH, misc fluid (03/02/2018 3:31 PM CDT) Fluid type Pleural [facility] DEPARTMENT OF PATHOLOGY AND GENOMIC MEDICINE LDH, fluid 64 U/L [facility] DEPARTMENT OF Comment: PATHOLOGY AND Analysis performed on Harman 8000 analyzer. This is not an GENOMIC MEDICINE approved methodology for this specimen type;accuracy and clinical significance uncertain. Specimen Fluid Performing Organization Address City/[facility]/Zipcode Phone Number [facility] DEPARTMENT OF PATHOLOGY AND [address] [place] [address] GENOMIC MEDICINE Pv duplex arterial lower extremity (03/02/2018 11:22 AM CDT) Specimen Narrative Performed At [facility] Vascular Ultrasound Laboratory Lower Extremity Arterial Duplex Report [address] [address] Pat.Name:ANTHONY STOVER GPat.ID:[id number] .Date: 03/02/2018 Refer.MD:JHONY BASS MD Exam Time: 9:14:00 AMStudy Type:LE Arterial Height:68inDOBAge: 1955,62Y Sex: MALESonogrphr: Roger Roque, RDMS, RVT Pat. Stat.:Inpatient Room:[address] TapeVol: , CPT - 4: 82134, 67658 Echo Event ID:[id number] Order ID:[id number] Reason for Study:Peripheral arterial disease. History acute [...] right anterior tibial artery. MEASUREMENTS: DOPPLER Right SPAR MACHINE OPERATOR HELPER prox SPAR MACHINE OPERATOR HELPER prox PSV83.9 cm/s Profunda Profunda PSV96 cm/s SFA Dist SFA Dist PSV83 cm/s SFA Mid SFA Mid PSV 88 cm/s Right SFA Prox SFA Prox PSV 175 cm/s Right SPAR MACHINE OPERATOR HELPER Mid SPAR MACHINE OPERATOR HELPER Mid PSV 84 cm/s Left SPAR MACHINE OPERATOR HELPER Mid SPAR MACHINE OPERATOR HELPER Mid RMT424 cm/s Right SPAR MACHINE OPERATOR HELPER Dist SPAR MACHINE OPERATOR HELPER Dist PSV62 cm/s Left Profunda Profunda PSV92 cm/s Left SFA Prox SFA Prox PSV89 cm/s Left SFA Prox 1 SFA Prox 1 PSV 130 cm/s Left SFA Mid SFA Mid PSV 83 cm/s Left SFA Mid 1 SFA Mid 1 THS806 cm/s Left SFA Dist SFA Dist PSV94 [...] TP Trunk Dist P 133 cm/s Right IRON AND STEEL WORK SUPERVISOR Prox IRON AND STEEL WORK SUPERVISOR Prox PSV 129 cm/s Left IRON AND STEEL WORK SUPERVISOR Prox IRON AND STEEL WORK SUPERVISOR Prox PSV 125 cm/s Right IRON AND STEEL WORK SUPERVISOR Mid IRON AND STEEL WORK SUPERVISOR Mid PSV 87 cm/s Left IRON AND STEEL WORK SUPERVISOR Mid IRON AND STEEL WORK SUPERVISOR Mid PSV 64 cm/s Left IRON AND STEEL WORK SUPERVISOR Mid 1 IRON AND STEEL WORK SUPERVISOR Mid 1 NHN785 cm/s Left IRON AND STEEL WORK SUPERVISOR Mid 2 IRON AND STEEL WORK SUPERVISOR Mid 2 RTM133 cm/s Right IRON AND STEEL WORK SUPERVISOR Distal IRON AND STEEL WORK SUPERVISOR Distal PSV87 cm/s Right IRON AND STEEL WORK SUPERVISOR Dist 1 IRON AND STEEL WORK SUPERVISOR Dist 1 PSV 344 cm/s Left Peroneal Prox Peroneal Prox P52 cm/s Right IRON AND STEEL WORK SUPERVISOR Dist 2 IRON AND STEEL WORK SUPERVISOR Dist 2 PSV30 cm/s Right Peroneal Prox [...] Ultrasound Laboratory Lower Extremity Arterial Duplex Report [address] [place] [address] Pat.Name: ANTHONY STOVER Pat.ID: [id number] .Date: 03/02/2018 Refer.MD: JHONY BASS MD Exam Time: 9:14:00 AM Study Type:LE Arterial Height: 68in Age: 1 1955,62Y Sex: MALE Sonogrphr: Roger Roque RDMS, RVT Pat. Stat.:Inpatient Room: [address] Vol: , CPT - 4: 94080, 27147 Echo Event ID:[id number] Order ID: [id number] Reason for Study:Peripheral arterial disease. History acute [...] right anterior tibial artery. MEASUREMENTS: DOPPLER Right SPAR MACHINE OPERATOR HELPER prox SPAR MACHINE OPERATOR HELPER prox PSV 83.9 cm/s Profunda Profunda PSV 96 cm/s SFA Dist SFA Dist PSV 83 cm/s SFA Mid SFA Mid PSV 88 cm/s Right SFA Prox SFA Prox PSV 175 cm/s Right SPAR MACHINE OPERATOR HELPER Mid SPAR MACHINE OPERATOR HELPER Mid PSV 84 cm/s Left SPAR MACHINE OPERATOR HELPER Mid SPAR MACHINE OPERATOR HELPER Mid PSV 110 cm/s Right SPAR MACHINE OPERATOR HELPER Dist SPAR MACHINE OPERATOR HELPER Dist PSV 62 cm/s Left Profunda Profunda [...] TP Trunk Dist P 133 cm/s Right IRON AND STEEL WORK SUPERVISOR Prox IRON AND STEEL WORK SUPERVISOR Prox PSV 129 cm/s Left IRON AND STEEL WORK SUPERVISOR Prox IRON AND STEEL WORK SUPERVISOR Prox PSV 125 cm/s Right IRON AND STEEL WORK SUPERVISOR Mid IRON AND STEEL WORK SUPERVISOR Mid PSV 87 cm/s Left IRON AND STEEL WORK SUPERVISOR Mid IRON AND STEEL WORK SUPERVISOR Mid PSV 64 cm/s Left IRON AND STEEL WORK SUPERVISOR Mid 1 IRON AND STEEL WORK SUPERVISOR Mid 1 PSV 107 cm/s Left IRON AND STEEL WORK SUPERVISOR Mid 2 IRON AND STEEL WORK SUPERVISOR Mid 2 PSV 219 cm/s Right IRON AND STEEL WORK SUPERVISOR Distal IRON AND STEEL WORK SUPERVISOR Distal PSV 87 cm/s Right IRON AND STEEL WORK SUPERVISOR Dist 1 IRON AND STEEL WORK SUPERVISOR Dist 1 PSV 344 cm/s Left Peroneal Prox Peroneal Prox P 52 cm/s Right IRON AND STEEL WORK SUPERVISOR Dist 2 IRON AND STEEL WORK SUPERVISOR Dist 2 PSV 30 cm/s Right Peroneal [...] MD Performing Organization Address City/State/Zipcode Phone Number [facility] [address] [place] [address] Cytology (non-gynecological) request (03/02/2018 7:54 AM CDT) [facility] DEPARTMENT OF PATHOLOGY AND GENOMIC MEDICINE Cytology See link below [facility] DEPARTMENT OF (non-gynecological) for PDF Lab PATHOLOGY AND report Report GENOMIC MEDICINE Result status This is Final [facility] DEPARTMENT OF Report to PATHOLOGY AND [id number] GENOMIC MEDICINE Specimen Performing Organization Address City/[facility]/Zipcode Phone Number [facility] DEPARTMENT OF PATHOLOGY AND [address] [place] [address] GENOMIC MEDICINE Vitamin B12 level (03/02/2018 6:00 AM CDT) Vitamin B12 1,113 () 765 - 716 [facility] DEPARTMENT OF Comment: pg/mL PATHOLOGY AND Significant overlap exists between normal and deficiency states. GENOMIC MEDICINE However, most patients with deficiencies will have Serum B12 <200 pg/mL. Specimen Serum Performing Organization Address City/State/Zipcode Phone Number [facility] DEPARTMENT OF PATHOLOGY AND [address] [place] [address] GENOMIC MEDICINE Phosphorus level (03/02/2018 4:00 AM CDT) Phosphorus 2.7 2.4 - 4.5 mg/dL [facility] DEPARTMENT OF PATHOLOGY AND GENOMIC MEDICINE Specimen Plasma specimen Performing Organization Address City/[facility] Phone Number [facility] DEPARTMENT OF PATHOLOGY AND [address] [place] [address] GENOMIC MEDICINE Magnesium level (03/02/2018 4:00 AM CDT) Magnesium 1.9 1.6 - 2.4 mg/dL [facility] DEPARTMENT OF PATHOLOGY AND GENOMIC MEDICINE Specimen Plasma specimen Performing Organization Address [facility] Phone Number [facility] DEPARTMENT OF PATHOLOGY AND [address] [place] [address] GENOMIC MEDICINE LDH (03/02/2018 4:00 AM CDT) LDH 145 87 - 225 U/L [facility] DEPARTMENT OF PATHOLOGY AND GENOMIC MEDICINE Specimen Plasma specimen Performing Organization Address [facility] Phone Number [facility] DEPARTMENT OF PATHOLOGY AND [address] [place] [address] MEDICINE Ferritin level (03/02/2018 4:00 AM CDT) Ferritin level 856 (H) 30 - 400 ng/mL [facility] DEPARTMENT OF PATHOLOGY AND GENOMIC MEDICINE Specimen Plasma specimen Performing Organization Address [facility] Phone Number [facility] DEPARTMENT OF PATHOLOGY AND [address] [place] [address] MEDICINE Creatine kinase, total (CPK) (03/02/2018 4:00 AM CDT) Creatine kinase 44 39 - 308 U/L [facility] DEPARTMENT OF PATHOLOGY AND GENOMIC MEDICINE Specimen Plasma specimen Performing Organization Address [facility] [facility] Phone Number [facility] DEPARTMENT OF PATHOLOGY AND [address] [place] [address] MEDICINE Hepatic function panel (03/02/2018 4:00 AM CDT) Albumin 1.7 (L) 3.5 - 5.0 g/dL [facility] DEPART[facility] OF PATHOLOGY AND GENOMIC MEDICINE Total bilirubin <0.2 0.0 - 1.2 [facility] DEPARTMENT OF mg/dL PATHOLOGY AND GENOMIC MEDICINE Bilirubin direct <0.2 0.0 - 0.3 [facility] DEPARTMENT OF mg/dL PATHOLOGY AND GENOMIC MEDICINE Alkaline phosphatase 146 (H) 40 - 129 U/L [facility] DEPART[facility] OF PATHOLOGY AND GENOMIC MEDICINE Protein 6.2 (L) 6.3 - 8.3 g/dL [facility] DEPARTMENT OF Comment: PATHOLOGY AND 4.6-7.0 g/dL GENOMIC MEDICINE 1 week 4.4-7.6 g/dL 7 months-1year5.1-7.3 g/dL 1-2 years5.6-7.5 g/dL >3 years6.0-8.0 g/dL 18-150 6.3-8.3 g/dL ALT 7 5 - 50 U/L [facility] DEPARTMENT OF PATHOLOGY AND GENOMIC MEDICINE AST 18 10 - 50 U/L [facility] DE[facility] OF PATHOLOGY AND GENOMIC MEDICINE Specimen Plasma specimen Performing Organization Address City/State/Zipcode Phone Number [facility] DEPARTMENT OF PATHOLOGY AND [address] [place] [address] GENOMIC MEDICINE Lipid panel (03/02/2018 4:00 AM CDT) Cholesterol 151 <200 mg/dL [facility] DE[facility] OF PATHOLOGY AND GENOMIC MEDICINE Triglycerides 69 <150 mg/dL [facility] DE[facility] OF PATHOLOGY AND GENOMIC MEDICINE HDL cholesterol 31 (L) >40 mg/dL [facility] DE[facility] OF PATHOLOGY AND GENOMIC MEDICINE LDL cholesterol 100 (H)Comment: <100 mg/dL [facility] DE[facility] Result obtained by OF PATHOLOGY AND direct LDL GENOMIC MEDICINE measurement Lipid panel SeeBelow [facility] DEPARTMENT interpretation Comment: OF PATHOLOGY AND Total Cholesterol (mg/dL) GENOMIC MEDICINE <200 Desirable [id number]-hqww >=240High Triglycerides (mg/dL) <150 Normal 153-832Wasrabqroi-bsra 200-499High >=500Very high HDL Cholesterol (mg/dL) <40Low (male) <40Low (female) LDL Cholesterol (mg/dL) <100 Optimal 100-129Near or above optimal [id number]-emsw 160-189High >=190Very high Risk Catergories that modify [...] specimen Performing Organization Address City/State/Zipcode Phone Number [facility] DEPARTMENT OF PATHOLOGY AND [address] [place] [address] CT Chest Wo Contrast (02/28/2018 7:38 PM [...] bilateral pleural effusions and associated compressive atelectasis. [facility]-[id number] Procedure Note [facility], Radiology Results Incoming - 02/28/2018 8:17 PM [...] bilateral pleural effusions and associated compressive atelectasis. [facility]-[id number] Performing Organization Address City/[facility] Phone Number [employer] [address] [place] [address] XR Chest 1 Vw Portable (02/28/2018 5:44 PM CDT) Specimen Narrative Performed At EXAMINATION:XR CHEST 1 VW PORTABLE RADIANT CLINICAL HISTORY:ICU ptrecent tube or catheter insert COMPARISON:December 28, 2017 IMPRESSION: 1.There are moderate bilateral basal pleural effusions greater on the left with associated volume loss, increasing since the prior exam.. 2.Heart size is at the upper limits normal. 3.There is mild vascular congestion. [facility]-[id number] Procedure Note Interface, Radiology Results Incoming - 02/28/2018 5:51 PM [...] normal. 3. There is mild vascular congestion. [facility]-[id number] Performing Organization Address City/State/Zipcode Phone Number [employer] [address] [place] [address] after 02/28/2018 Insurance Payer Benefit Plan / Subscriber ID Effective Dates Phone Address Type Group BCBS BCBS CHOICE xxxxxxxxxxxxxxx 2016-Present PPO PPO/[employer]PL PPO MEDICARE MEDICARE PART A xxxxxxxxxxx 2016-Present [place] Medicare AND B [phone] [id number] (Work) Advance Directives Patient has advance care planning documents, and code status on file. For more information, please contact:Anderson [address] [place] [address] Code Status Date Activated Date Inactivated Comments Full Code 02/28/2018 8:53 PM 03/09/2018 11:28 PM Code Status decision reached by: Patient
--- OUTSIDE RECORDS SUMMARY | 2019-03-01 17:43 | XMS REPORT ---
:1955 Author Organization [facility] Address [address] [place] [address] Dr. [place] [address] [place] [id number] Care Team Providers Name Role Phone Unavailable Unavailable Unavailable Problems This patient has no known problems. Allergies, Adverse Reactions, Alerts This patient has no known allergies or adverse reactions. Medications This patient has no known medications.
[2019-03-01] MEDS ORDERED: cloNIDine HCl 0.1 MG TAB ONE (18:20)
[2019-03-01] MEDS ORDERED: PROMETHAZINE 25 MG/ML VIAL ONE (18:20)
[2019-03-01] MEDS ORDERED: MORPHINE 4 MG/ML SYR ONE (18:21)
[2019-03-01 18:41] LABS: Absolute Lymphocytes (CBC) 0.4 K/uL (0.7-4.9); Basophils % 1.6 % (0-1.3); Hematocrit 32.2 % (39.6-49.0); Lymphocytes % 6.3 % (15.3-44.8); RBC Red Blood Cell Count 3.97 M/uL (4.33-5.43)
[2019-03-01 18:45] LABS: Albumin 2.8 g/dL (3.4-5.0); Bilirubin Direct 0.2 mg/dL (0-0.2); Bilirubin Total 0.7 mg/dL (0.2-1.0); Potassium 3.4 mmol/L (3.5-5.1); Protein, Total 7.3 g/dL (6.4-8.2)
--- NOTE | 2019-03-01 19:24 | RAD REPORT ---
EXAM DESCRIPTION: CT - Abdomen Pelvis Wo Contrast - 03/01/2019 7:11 pm CLINICAL HISTORY: Abdominal pain. ABD PAIN COMPARISON: CTSTONE PROTOCOL dated 01/15/2012; Thorax Wo Con dated 03/01/2019 TECHNIQUE: CT imaging of the abdomen and pelvis was performed without contrast. Solid organ, bowel a nd vascular assessment is limited due to lack of IV and oral contrast. All CT scans are performed using dose optimization technique as appropriate and may include automated exposure control or mA/KV adjustment according to patient size. FINDINGS: Airspace opacities are present in both lung bases which likely represent atelectasis.Small left and moderate right pleural effusion is noted. Noncontrast assessment of the liver demonstrates no focal mass or biliary dilatation. The spleen, duenas creas and adrenal glands are within normal limits. Small calculi are present in both kidneys without hydronephrosis.Heavy atherosclerosis is present. Significant fecal retention is present in the colon. No free air or abscess. The osseous structures are within normal limits. IMPRESSION: Moderate fecal retention in the colon. Heavy atherosclerosis. Punctate bilateral renal calculi without hydronephrosis. A limited non-contrast examination was performed as detailed.
--- NOTE | 2019-03-01 19:37 | RAD REPORT ---
EXAM DESCRIPTION: CT - Thorax Wo Con CLINICAL HISTORY: Chest pain PAIN COMPARISON: THORAX WO CONTRAST dated 11/25/2014 FINDINGS: Small left and a moderate right pleural effusion is present. Airspace opacity is present i n both posterior lung bases, likely representing atelectasis. No pericardial fluid. No axillary, mediastinal or hilar adenopathy. No concerning bony finding. All CT scans are performed using dose optimization technique as appropriate and may include automated exposure control or mA/KV adjustment according to patient size. IMPRESSION: Bilateral pleural effusion with bibasilar atelectasis noted, slightly worse on the right .
--- NOTE | 2019-03-01 19:50 | ER ---
Nurse's Notes [facility] Name: Allen Doe Age: 63 yrs Sex: Male : 1955 Arrival Date: 03/01/2019 Time: 17:38 Bed 8 Private MD: Diagnosis: Type 1 diabetes mellitus;End stage renal disease;Essential (primary) hypertension;Constipation;Pleural effusion in conditions classified elsewhere Presentation: 03/01 17:42 Presenting complaint: Patient states: Reports that he was sent here by dialysis for aj HTN, as well as LUQ abdominal pain. [facility], patient unsure of DX. Transition of care: patient was not received from another setting of care. Onset of symptoms was February 27, 2019. Risk Assessment: Do you want to hurt yourself or someone else? Patient reports no desire to harm self or others. Initial Sepsis Screen: Does the patient meet any 2 criteria? No. Patient's initial sepsis screen is negative. Does the patient have a suspected source of infection? No. Patient's initial sepsis screen is negative. Care prior to arrival: None. 17:42 Method Of Arrival: Wheelchair 17:42 Acuity: AD 2 aj Triage Assessment: 17:44 General: Appears in no apparent distress. comfortable, Behavior is calm, cooperative, aj appropriate for age. Pain: Complains of pain in left upper quadrant. Neuro: Level of Consciousness is awake, alert, obeys commands, Oriented to person, place, time, situation, Appropriate for age. Respiratory: Airway is patent Respiratory effort is even, unlabored, Respiratory pattern is regular, symmetrical. GI: Abdomen is flat. Derm: Skin is intact, is healthy with good turgor, Skin is pink, warm \T\ dry. normal. Historical: - Allergies: 17:44 cefepime; aj - Home Meds: 17:44 clonidine HCl 0.1 mg Oral tab 1 tab 3 times per day [Active]; Coreg Oral BID [Active]; aj Norvasc 20mg Oral BID [Active]; - PMHx: 17:44 Bronchitis; Diabetes - IDDM; Dialysis; ESRD; Hypertension; aj - Immunization history:: Adult Immunizations up to date. - Social history:: Smoking status: Patient/guardian denies using tobacco. - Ebola Screening: : Patient negative for fever greater than or equal to 101.5 degrees Fahrenheit, and additional compatible Ebola Virus Disease symptoms Patient denies exposure to infectious person Patient denies travel to an Ebola-affected area in the 21 days before illness onset No symptoms or risks identified at this time. Screenin:05 Abuse screen: Denies threats or abuse. Denies injuries from another. Nutritional bp screening: No deficits noted. Tuberculosis screening: No symptoms or risk factors identified. Fall Risk None identified. Assessment: 17:45 General: SEE TRIAGE NOTE. bp 18:42 Reassessment: ALL CURRENT ORDERS COMPLETED, RESULTS PENDING. bp 19:15 Reassessment: pt in CT. bb 19:50 General: Appears in no apparent distress. Behavior is calm, cooperative. Pain: Denies bb pain. Neuro: Level of Consciousness is awake, alert, obeys commands, Oriented to person, place, situation. Cardiovascular: Heart tones S1 S2 present Capillary refill < 3 seconds Patient's skin is warm and dry. Pulses are palpable in right radial artery and left radial artery. Respiratory: Respiratory effort is even, unlabored, Respiratory pattern is regular, Breath sounds are clear bilaterally. GI: Abdomen is non-distended, Bowel sounds present X 4 quads. Abd is soft and non tender X 4 quads. Derm: Skin is dry, Skin is normal, Skin temperature is warm. 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 20:01 Reassessment: awaiting result of troponin prior to discharge. bb 20:54 Reassessment: pt appears to be sleeping, eyes closed, resp unlabored, arouses easily, bb verbalized understanding of and agrees to plan of care discharge instructions given pt assisted to exit via wheelchair accompanied by family. Vital Signs: 17:44 BP 244 / 89; Pulse 89; Resp 20; Temp 98.8; Pulse Ox 98% on R/A; Weight 53.98 kg; Height aj 5 ft. 9 in. (175.26 cm); 18:41 BP 121 / 57; Pulse 88; Resp 18; Pulse Ox 96% ; bp 19:57 BP 150 / 65; Pulse 75; Resp 12 S; Pulse Ox 99% on R/A; bb 20:57 BP 171 / 69; Pulse 78; Resp 12 S; Pulse Ox 99% on R/A; bb 17:44 Body Mass Index 17.57 (53.98 kg, 175.26 cm) ED Course: 17:38 Patient arrived in ED. mr 17:44 Triage completed. 17:44 Arm band placed on right wrist. Patient placed in an exam room. aj 17:46 Ke Hardwick MD is Attending Physician. rn 17:47 Ranjit Collins, RN is Primary Nurse. bp 18:03 EKG done, by technical analyst. reviewed by Ke Hardwick MD. [facility] 18:05 Patient has correct armband on for positive identification. Bed in low position. Call bp light in reach. Side rails up X2. 18:05 Inserted saline lock: 22 gauge in left forearm, using aseptic technique. Blood bp collected. 19:13 CT Abd/Pelvis - Without Contrast In Process Unspecified. EDMS 19:17 Thorax Wo Con In Process Unspecified. EDMS 19:18 Attending Physician role handed off by Ke Hardwick MD cha 19:18 Lucio Brunson MD is Attending Physician. [facility] 20:57 No provider procedures requiring assistance completed. IV discontinued, intact, bb bleeding controlled, No redness/swelling at site. Pressure dressing applied. Administered Medications: 18:05 Drug: Phenergan 25 mg Route: IVP; Site: left forearm; bp 18:40 Follow up: Response: Nausea is decreased bp 18:05 Drug: morphine 4 mg Route: IVP; Site: left forearm; bp 18:40 Follow up: Response: Pain is decreased bp 18:05 Drug: cloNIDine 0.2 mg Route: PO; bp 18:41 Follow up: Response: No adverse reaction bp Outcome: 19:50 Discharge ordered by . [facility] 20:57 Discharged to home via wheelchair, with family. 20:57 Condition: stable 20:57 Discharge instructions given to patient, family, Instructed on discharge instructions, follow up and referral plans. medication usage, Demonstrated understanding of instructions, follow-up care, medications, Prescriptions given X 2. 20:58 Patient left the ED. bb Signatures: Dispatcher [employer] EDKatia Coello RN RN aj Anderson, Corey, MD MD cha Rivera, Mary HydeJeanna RN RN bb Nieto, Roman, MD MD rn Peltier, Brian, SVITLANA RN Kaye Huynh 3
--- NOTE | 2019-03-01 19:50 | EDPHYS ---
Physician Documentation [facility] Name: Allen Doe Age: 63 yrs Sex: Male : 1955 Arrival Date: 03/01/2019 Time: 17:38 Bed 8 Private MD: ED Physician Lucio Brunson HPI: 03/01 17:57 This 63 yrs old Black Male presents to ER via Wheelchair with complaints of Abdominal rn Pain. 17:57 The patient presents with abdominal pain in the upper abdomen, in the left upper rn quadrant. Onset: The symptoms/episode began/occurred 2 week(s) ago. The symptoms do not radiate. Associated signs and symptoms: Pertinent positives: nausea and vomiting, Pertinent negatives: blood in stools, fever. The symptoms are described as achy, crampy. Modifying factors: The symptoms are alleviated by nothing, the symptoms are aggravated by touching the area. Severity of pain: At its worst the pain was moderate in the emergency department the pain is unchanged. The patient has experienced similar episodes in the past. The patient has been recently seen by a physician:. Reports abd pain, for last 2 weeks, family member in room states has been going on for longer, just seen [facility] last night and doesn't know results, reports only morphine and phenergan helps, no fever, no blood in stool. No chest pain. Finished dialysis today, dialysisdoes not help, and sent for BP evaluation.. Historical: - Allergies: 17:44 cefepime; aj - Home Meds: 17:44 clonidine HCl 0.1 mg Oral tab 1 tab 3 times per day [Active]; Coreg Oral BID [Active]; aj Norvasc 20mg Oral BID [Active]; - PMHx: 17:44 Bronchitis; Diabetes - IDDM; Dialysis; ESRD; Hypertension; aj - Immunization history:: Adult Immunizations up to date. - Social history:: Smoking status: Patient/guardian denies using tobacco. - Ebola Screening: : Patient negative for fever greater than or equal to 101.5 degrees Fahrenheit, and additional compatible Ebola Virus Disease symptoms Patient denies exposure to infectious person Patient denies travel to an Ebola-affected area in the 21 days before illness onset No symptoms or risks identified at this time. ROS: 17:59 Constitutional: Negative for fever, chills, and weight loss, Eyes: Negative for injury, rn pain, redness, and discharge, Neck: Negative for injury, pain, and swelling, Cardiovascular: Negative for chest pain, palpitations, and edema, Respiratory: Negative for shortness of breath, cough, wheezing, and pleuritic chest pain, Abdomen/GI: + abd pain and vomiting MS/Extremity: Negative for injury and deformity, Skin: Negative for injury, rash, and discoloration, Neuro: + generalized weakness Exam: 17:59 Constitutional: This is a well developed, well nourished patient who is awake, alert, rn laying on abdomen, appears uncomfortable Head/Face: Normocephalic, atraumatic. ENT: MMM Cardiovascular: Regular rate and rhythm. No pulse deficits. Abdomen/GI: soft, + epigastric and LUQ tenderness, no rebound Skin: Warm, dry MS/ Extremity: Pulses equal, no cyanosis. + bilateral lower ext prostheses Neuro: Awake and alert, GCS 15, oriented to person, place, time, and situation. Cranial nerves II-XII grossly intact. Motor strength 5/5 in all extremities. Sensory grossly intact. Vital Signs: 17:44 BP 244 / 89; Pulse 89; Resp 20; Temp 98.8; Pulse Ox 98% on R/A; Weight 53.98 kg; Height aj 5 ft. 9 in. (175.26 cm); 18:41 BP 121 / 57; Pulse 88; Resp 18; Pulse Ox 96% ; bp 19:57 BP 150 / 65; Pulse 75; Resp 12 S; Pulse Ox 99% on R/A; bb 20:57 BP 171 / 69; Pulse 78; Resp 12 S; Pulse Ox 99% on R/A; bb 17:44 Body Mass Index 17.57 (53.98 kg, 175.26 cm) aj MDM: 17:46 Patient medically screened. rn 18:22 ED course: Pt reports just having ct abdomen at [facility] today at 0300, contacted aissatou cobb for results to save this man radiation and repeat ct. Pt with chronic abd pain, dialysis, possible gastroparesis.. 18:47 ED course: Unable to get CT results from [facility], will obtain ct abdomen here.. rn 03/01 17:57 Order name: Basic Metabolic Panel; Complete Time: 18:46 rn 03/01 17:57 Order name: CBC with Diff; Complete Time: 19:02 rn 03/01 17:57 Order name: Hepatic Function; Complete Time: 18:46 rn 03/01 17:57 Order name: Lipase; Complete Time: 18:46 03/01 18:47 Order name: CT Abd/Pelvis - Without Contrast; Complete Time: 19:36 03/01 19:19 Order name: Troponin (emerg Dept Use Only); Complete Time: 20:23 [facility] 03/01 17:57 Order name: IV Saline Lock; Complete Time: 18:20 rn 03/01 17:57 Order name: Labs collected and sent; Complete Time: 18:20 03/01 17:57 Order name: EKG - Nurse/Tech; Complete Time: 18:00 rn 03/01 17:57 Order name: EKG; Complete Time: 17:58 03/01 19:13 Order name: Thorax Wo Con; Complete Time: 20:23 EDMS Administered Medications: 18:05 Drug: Phenergan 25 mg Route: IVP; Site: left forearm; bp 18:40 Follow up: Response: Nausea is decreased bp 18:05 Drug: morphine 4 mg Route: IVP; Site: left forearm; bp 18:40 Follow up: Response: Pain is decreased bp 18:05 Drug: cloNIDine 0.2 mg Route: PO; bp 18:41 Follow up: Response: No adverse reaction bp Disposition: 03/01/19 19:50 Discharged to Home. Impression: Type 1 diabetes mellitus, End stage renal disease, Essential (primary) hypertension, Constipation, Pleural effusion in conditions classified elsewhere. - Condition is Stable. - Discharge Instructions: Constipation, Adult, Hypertension, Pleural Effusion, Dialysis, Hypertension, Ldcp-[id number], Chronic Kidney Disease, Adult, Pvbs-xo-Zjmk, Chronic Kidney Disease, Adult. - Prescriptions for Bentyl 20 mg Oral Tablet - take 1 tablet by ORAL route every 6 hours As needed; 20 tablet. Miralax 17 gram/dose Oral - take 1 packet by ORAL route once daily dilute powder in 8 ounces of water or juice; 14 packet. - Medication Reconciliation Form, Thank You Letter, Antibiotic Education, Prescription Opioid Use form. - Follow up: Private Physician; When: 1 - 2 days; Reason: Recheck today's complaints, Continuance of care, Re-evaluation by your physician. - Problem is new. - Symptoms have improved. Signatures: Dispatcher [employer] Katia Fay RN RN Lucio Mckeon MD MD cha Ballard, Brenda, RN RN Ke Santos MD MD rn Peltier, Brian, RN RN bp Corrections: (The following items were deleted from the chart) 20:58 19:50 03/01/2019 19:50 Discharged to Home. Impression: Type 1 diabetes mellitus; End bb stage renal disease; Essential (primary) hypertension; Constipation; Pleural effusion in conditions classified elsewhere. Condition is Stable. Forms are Medication Reconciliation Form, Thank You Letter, Antibiotic Education, Prescription Opioid Use. Follow up: Private Physician; When: 1 - 2 days; Reason: Recheck today's complaints, Continuance of care, Re-evaluation by your physician. Problem is new. Symptoms have improved. antonette
[2019-03-01 21:06] VITALS: TEMP 98.8
[2019-03-01 21:08] VITALS: O2SAT 99
[2019-03-01 21:10] VITALS: BP 171/69
--- NOTE | 2019-03-02 11:23 | EKG ---
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
== END 2019-03-01 20:58 | disposition home or self-care (01) ==
LOC: ER 17:34
DX: K59.00 Constipation, unspecified (principal); E10.22 Type 1 diabetes mellitus with diabetic chronic kidney disease; I12.0 Hypertensive chronic kidney disease with stage 5 chronic kidney disease or end stage renal disease; N18.6 End stage renal disease; J91.8 Pleural effusion in other conditions classified elsewhere; Z88.8 Allergy status to other drugs, medicaments and biological substances; Z99.2 Dependence on renal dialysis
CPT/HCPCS: 93005; 85025; 80048; 36415; 80076; 84484; 83690; 71250; 74176; J2550